=== PATIENT | male | born 1950 | race Asian ===

== ENCOUNTER 2016-05-06 12:23 | Inpatient (IN) | payer MEDICARE, MEDICAID ==
[~2016-05-06] VITALS: Ht 167.6 cm; Wt 72.6 kg
[~2016-05-06 12:23] MED LIST: AMLODIPINE BESY10 MG ORAL; ASPIRIN81 MG ORAL; COLACE100 MG ORAL; CRESTOR20 MG ORAL; CULTURELLE1 EACH ORAL; FISH OIL 1,2001 EAC2 PO; ISOSORBIDE DINIT5 MG ORAL; LISINOPRIL20 MG ORAL; LOSARTAN POTASS50 MG ORAL; METOPROLOL SUCC25 MG ORAL; NEXIUM40 MG ORAL; NKM; NORCO 5-325 TA1 EACH ORAL; NORVASC10 MG ORAL; NORVASC5 MG ORAL; PANTOPRAZOLE SO40 MG ORAL; SENNA8.6 M3 PO; TAMSULOSIN HCL0.4 MG ORAL; ZOFRAN4 MG ORAL
[2016-05-06 13:00] LABS: EOSINOPHILS % (AUTO) 1.4 % (0.0-3.0); LYMPHOCYTES % (AUTO) 16.6 % (20.0-45.0); MEAN CORPUSCULAR HEMOGLOBIN 31.1 PG (27.0-31.0); MEAN CORPUSCULAR HGB CONC 33.1 G/DL (32.0-36.0); MEAN CORPUSCULAR VOLUME 94 FL (80-99); MONOCYTES % (AUTO) 6.5 % (1.0-10.0); NEUTROPHILS % (AUTO) 74.5 % (45.0-75.0); PLATELET COUNT 173 K/UL (150-450); RED BLOOD COUNT 4.67 M/UL (4.70-6.10); RED CELL DISTRIBUTION WIDTH 11.8 % (11.6-14.8); WHITE BLOOD COUNT 9.1 K/UL (4.8-10.8)
[2016-05-06 13:07] LABS: TROPONIN I < 0.30 ng/mL (<=0.30)
[2016-05-06 13:08] LABS: ALANINE AMINOTRANSFERASE 24 U/L (3-41); ALBUMIN/GLOBULIN RATIO 1.6 (1.0-2.7); ANION GAP 15 (5-15); ASPARTATE AMINO TRANSFERASE 29 U/L (5-40); CALCIUM 9.1 mg/dL (8.6-10.2); CARBON DIOXIDE 26 mEQ/L (20-30); CHLORIDE 104 mEQ/L (98-107); CREATININE 1.1 mg/dL (0.7-1.2); GLOMERULAR FILTRATION RATE > 60 mL/min (>60); HEMOLYSIS 13; POTASSIUM 3.9 mEQ/L (3.4-4.9); SODIUM 145 mEQ/L (135-145); TOTAL PROTEIN 6.5 g/dL (6.6-8.7)
[2016-05-06 13:19] LABS: CKMB 4.6 ng/mL (< 6.7)
[2016-05-06 14:00] VITALS: BP 134/86
[2016-05-06] MEDS ORDERED: UNOBMED (14:00)
--- NOTE | 2016-05-06 14:24 | Diagnostic Imaging Report ---
Indication: Chest pain Technique: One view of the chest Comparison: 01/07/2016 Findings: The heart is borderline enlarged. Aorta is ectatic tortuous and calcified. There are median sternotomy sutures. Findings are unchanged Impression: No acute process Borderline cardiomegaly
[2016-05-06] MEDS ORDERED: Ketorolac 30mg Inj IV PRN (16:00)
[2016-05-06 16:15] LABS: TROPONIN I < 0.30 ng/mL (<=0.30)
[2016-05-06 16:29] VITALS: BP 143/78
--- NOTE | 2016-05-06 16:39 | Emergency Room Report ---
History of Present Illness General Chief Complaint: Chest Pain Source: Patient Present Illness HPI This patient complains of chest pain that started about 30 minutes prior to arrival. The patient did undergo a coronary artery bypass graft about one year ago. He states he was walking and suddenly felt substernal chest pain. He states that his symptoms have subsided. He denies cough or congestion. Denies fever chills. He has no other complaints. Allergies: Coded Allergies: No Known Allergies (Unverified , 11/27/14) Patient History Past Medical History: see triage record, HTN, MA, CAD Past Surgical History: CABG Social History: Denies: alcohol use, drug use, smoking Reviewed Nursing Documentation: PMH: Agreed, PSxH: Agreed Nursing Documentation-PMH Hx Cardiac Problems: Yes - cabg Hx Hypertension: Yes Hx Pacemaker: No Hx Asthma: No Hx COPD: No Hx Diabetes: No Hx Cancer: No Hx Gastrointestinal Problems: No Hx Dialysis: No History Of Psychiatric Problem: No Hx Neurological Problems: No Hx Cerebrovascular Accident: Yes Hx Seizures: No Review of Systems All Other Systems: negative except mentioned in HPI Physical Exam Vital Signs Date Time Temp Pulse Resp B/P Pulse Ox O2 Delivery O2 Flow Rate FiO2 05/06/16 12:20 98.1 68 16 130/80 98 Room Air Sp02 EP Interpretation: reviewed, normal General Appearance: no apparent distress, alert, GCS 15, non-toxic Head: normocephalic, atraumatic Eyes: bilateral eye PERRL, bilateral eye normal inspection ENT: hearing grossly normal, normal pharynx, no angioedema, normal voice Neck: full range of motion, supple/symm/no masses Respiratory: chest non-tender, lungs clear, normal breath sounds, speaking full sentences Cardiovascular #1: regular rate, rhythm, no edema Gastrointestinal: normal bowel sounds, non tender, soft, non-distended, no guarding, no rebound Rectal: deferred Musculoskeletal: back normal, gait/station normal, normal range of motion, non- tender Neurologic: alert, oriented x3, responsive, motor strength/tone normal, sensory intact, speech normal Psychiatric: judgement/insight normal, memory normal, mood/affect normal, no suicidal/homicidal ideation Skin: normal color, no rash, warm/dry, well hydrated Medical Decision Making Diagnostic Impression: Primary Impression: Chest pain ER Course This patient with known coronary artery disease and status post CABG one year ago presents with substernal chest pain. Initial workup to include EKG, troponin are negative for acute findings. However, the patient's high-risk for acute coronary syndrome. He will be admitted to rule out acute coronary syndrome and for further evaluation and treatment. Labs Test 05/06/16 12:45 White Blood Count 9.1 K/UL (4.8-10.8) Red Blood Count 4.67 M/UL (4.70-6.10) Hemoglobin 14.5 G/DL (14.2-18.0) Hematocrit 43.9 % (42.0-52.0) Mean Corpuscular Volume 94 FL (80-99) Mean Corpuscular Hemoglobin 31.1 PG (27.0-31.0) Mean Corpuscular Hemoglobin Concent 33.1 G/DL (32.0-36.0) Red Cell Distribution Width 11.8 % (11.6-14.8) Platelet Count 173 K/UL (150-450) Mean Platelet Volume 9.0 FL (6.5-10.1) Neutrophils (%) (Auto) 74.5 % (45.0-75.0) Lymphocytes (%) (Auto) 16.6 % (20.0-45.0) Monocytes (%) (Auto) 6.5 % (1.0-10.0) Eosinophils (%) (Auto) 1.4 % (0.0-3.0) Basophils (%) (Auto) 1.0 % (0.0-2.0) Sodium Level 145 mEQ/L (135-145) Potassium Level 3.9 mEQ/L (3.4-4.9) Chloride Level 104 mEQ/L (98-107) Carbon Dioxide Level 26 mEQ/L (20-30) Anion Gap 15 (5-15) Blood Urea Nitrogen 16 mg/dL (7-23) Creatinine 1.1 mg/dL (0.7-1.2) Estimat Glomerular Filtration Rate > 60 mL/min (>60) Glucose Level 146 mg/dL (74-106) Calcium Level 9.1 mg/dL (8.6-10.2) Total Bilirubin 0.3 mg/dL (0.0-1.2) Aspartate Amino Transf (AST/SGOT) 29 U/L (5-40) Alanine Aminotransferase (ALT/SGPT) 24 U/L (3-41) Alkaline Phosphatase 70 U/L (40-129) Total Creatine Kinase 917 U/L (38-174) Creatine Kinase MB 4.6 ng/mL (< 6.7) Creatine Kinase MB Relative Index 0.5 Troponin I < 0.30 ng/mL (<=0.30) Total Protein 6.5 g/dL (6.6-8.7) Albumin 4.0 g/dL (3.5-5.2) Globulin 2.5 g/dL Albumin/Globulin Ratio 1.6 (1.0-2.7) EKG Diagnostic Results Rate: normal Rhythm: NSR ST Segments: no acute changes Rhythm Strip Diag. Results EP Interpretation: yes Rate: 90's Rhythm: NSR, no PVC's, no ectopy Chest X-Ray Diagnostic Results EP Interpretation: Yes Findings: no consolidation, no effusion, no pneumothorax, no acute cardiopulmonary disease Number of Views: 1 Last Vital Signs Date Time Temp Pulse Resp B/P Pulse Ox O2 Delivery O2 Flow Rate FiO2 05/06/16 16:29 98.1 72 16 143/78 100 Room Air Status: improved Disposition: ADMITTED INPATIENT Condition: Serious Referrals: NOT CHOSEN IPA/,REFERRING (PCP) ISABEL LANGFORD D.O. May 06, 2016 16:39
[2016-05-06 17:24] VITALS: BP 139/79
[2016-05-06] MEDS ORDERED: Nitroglycerin Subl 0.4mg tab (Bottle Of 25) SL PRN (17:45)
[2016-05-06] MEDS ORDERED: Enalaprilat 2.5mg/2ml Inj IV PRN (18:00)
[2016-05-06] MEDS ORDERED: Morphine Sulfate 2mg/ml Inj IVP PRN (18:00)
[2016-05-06] MEDS ORDERED: Miralax 17gm pkt ORAL PRN (18:00)
[2016-05-06] MEDS ORDERED: Diltiazem 25mg/5ml IV PRN (18:00)
[2016-05-06] MEDS ORDERED: DuoNeb 0.5-3(2.5)mg/3ml neb HHN PRN (18:00)
--- NOTE | 2016-05-06 19:33 | Cardiology Progress Note ---
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 primary billet examiner [id number] Objective Last 24 Hour Vital Signs Date Time Temp Pulse Resp B/P Pulse Ox O2 Delivery O2 Flow Rate FiO2 05/06/16 17:53 98.1 78 17 139/79 100 Room Air 05/06/16 17:24 98.1 78 17 139/79 100 Room Air 05/06/16 16:29 98.1 72 16 143/78 100 Room Air 05/06/16 14:00 59 16 134/86 100 Room Air 05/06/16 12:30 68 16 Room Air 05/06/16 12:20 98.1 68 16 130/80 98 Room Air Laboratory Tests Test 05/06/16 12:45 White Blood Count 9.1 K/UL (4.8-10.8) Red Blood Count 4.67 M/UL (4.70-6.10) L Hemoglobin 14.5 G/DL (14.2-18.0) Hematocrit 43.9 % (42.0-52.0) Mean Corpuscular Volume 94 FL (80-99) Mean Corpuscular Hemoglobin 31.1 PG (27.0-31.0) H Mean Corpuscular Hemoglobin Concent 33.1 G/DL (32.0-36.0) Red Cell Distribution Width 11.8 % (11.6-14.8) Platelet Count 173 K/UL (150-450) Mean Platelet Volume 9.0 FL (6.5-10.1) Neutrophils (%) (Auto) 74.5 % (45.0-75.0) Lymphocytes (%) (Auto) 16.6 % (20.0-45.0) L Monocytes (%) (Auto) 6.5 % (1.0-10.0) Eosinophils (%) (Auto) 1.4 % (0.0-3.0) Basophils (%) (Auto) 1.0 % (0.0-2.0) Sodium Level 145 mEQ/L (135-145) Potassium Level 3.9 mEQ/L (3.4-4.9) Chloride Level 104 mEQ/L (98-107) Carbon Dioxide Level 26 mEQ/L (20-30) Anion Gap 15 (5-15) Blood Urea Nitrogen 16 mg/dL (7-23) Creatinine 1.1 mg/dL (0.7-1.2) Estimat Glomerular Filtration Rate > 60 mL/min (>60) Glucose Level 146 mg/dL (74-106) H Calcium Level 9.1 mg/dL (8.6-10.2) Total Bilirubin 0.3 mg/dL (0.0-1.2) Aspartate Amino Transf (AST/SGOT) 29 U/L (5-40) Alanine Aminotransferase (ALT/SGPT) 24 U/L (3-41) Alkaline Phosphatase 70 U/L (40-129) Total Creatine Kinase 917 U/L (38-174) H Creatine Kinase MB 4.6 ng/mL (< 6.7) Creatine Kinase MB Relative Index 0.5 Troponin I < 0.30 ng/mL (<=0.30) Total Protein 6.5 g/dL (6.6-8.7) L Albumin 4.0 g/dL (3.5-5.2) Globulin 2.5 g/dL Albumin/Globulin Ratio 1.6 (1.0-2.7) DIANNE RAY May 06, 2016 19:33
[2016-05-06 20:00] VITALS: BP 152/94
[2016-05-06] MEDS: Heparin 5000 units/ml inj SUBQ SCH (21:37)
[2016-05-06] MEDS: Norco 5mg/325mg tab ORAL PRN (21:41)
[2016-05-07] VITALS (9 sets, daily range): BP systolic 135–185; BP diastolic 65–108
--- NOTE | 2016-05-07 01:27 | Consultation ---
DATE OF CONSULTATION: 05/06/2016 CARDIOLOGY CONSULTATION CONSULTING PHYSICIAN: Bhavin Vinson M.D. REFERRING PHYSICIAN: Kellie Orellana M.D. REASON FOR REFERRAL: Chest pain. HISTORY OF PRESENT ILLNESS: This is an elderly [place] gentleman who presented to the hospital because of chest pain. On questioning, he indicates that he has had intermittent episodes of sharp sensation in the center of the chest that gets worse with taking a deep breath, coughing, twisting, turning, and walk. He does not really have any shortness of breath. No PND. No orthopnea. No palpitations at this time. Food Quality Technician run sheet indicates that this 65-year-old gentleman was found sitting inside [employer], started drinking coffee 15 minutes ago and developed some pain. After drinking the coffee, chest pain started 15 minutes prior to [facility] arrival, non-provoked, nonradiating, midsternal, 10/10, hurts more on inspiration and palpation. No nausea, no vomiting. Feels like a needle sensation and he told then it was constant, but he tells me that it is recurrent, intermittent. History of bypass surgery. The patient had a blood sugar of 160. EKG is sinus rhythm. He had three sublingual nitroglycerin sprays and 324 mg of aspirin and the pain went from 10/10 to 6/10. He was brought to the emergency room at [facility] and is being admitted. PAST MEDICAL HISTORY: Positive for history of prior admission here because of chest pain. At that time, it was felt to be musculoskeletal secondary to reproducibility on palpation. He does have a history of coronary artery bypass grafting with BEAR to LAD, saphenous vein graft to diagonal, saphenous vein graft to posterior descending artery, and left radial to the obtuse marginal in 04/2015. He had a history of hypertension and hyperlipidemia. He had a history of hemorrhagic stroke in 04/2014 with residual left-sided droop and left upper extremity weakness, status post craniotomy apparently this occurred in [place]. Prior to hospitalization, chest pains at [facility] thought to be related to postoperative pain. 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 ALLERGIES: He is not allergic to any medications. SOCIAL HISTORY: He smokes after a bypass surgery. No alcohol use. REVIEW OF SYSTEMS: Gastrointestinal: He denies. Genitourinary: He denies. Pulmonary: He does have some coughing. Constitutional: He has had some sweats. Neurologic: He does have tingling sensation on questioning in his feet. PHYSICAL EXAMINATION: GENERAL: Shows to be a middle-aged Kinyar[place] gentleman, in no respiratory distress. HEENT: He has a deformity of the right cranial lateral area of the head. LUNGS: Clear to auscultation and percussion. CARDIAC: S1 is normal. S2 is normal. Regular rate and rhythm. No heaves, thrills, gallops, or rubs are noted. ABDOMEN: Soft and nontender. Positive bowel sounds. EXTREMITIES: There is no clubbing, cyanosis, no RV nor is there any edema. NEUROLOGIC: He is awake, alert, responsive, and in no apparent respiratory distress. LABORATORY VALUES: He has had EKG performed today that shows sinus rhythm with ST-segment changes mainly in lead III and possibly some in lead aVF as well and in direct comparison. White count 9.1, hemoglobin 14.5, and platelet count of 173,000. two sets of cardiac enzymes are negative. Sodium 145, potassium 3.9, chloride 104, bicarbonate 26, BUN 16, creatinine 1.1, and glucose of 146. CPK of 917 and no other testing. The patient did have a chest x-ray performed in the emergency room that showed no acute processes with borderline cardiomegaly. ASSESSMENT: 1. Atypical chest pain. 2. History of coronary disease and coronary artery bypass grafting, over the last year. 3. History of intracranial hemorrhage, in [place]. The patient's pain is atypical. He has some nonspecific T-wave changes on the EKG. Two sets of cardiac enzymes are negative. The percent should be checked in the morning. Since the pain is so atypical and he has not had any T-wave changes and his coronary artery bypass graft was relatively recently, I do not see any need to repeat perfusion imaging. Should be allowed to walk in the halls and if he does okay to discharge home. He will follow up with his primary care physician as outpatient. I would, however, repeat cardiac enzymes, EKG, and echocardiogram to rule out pericardial effusion and pericardiotomy syndrome before. Bhavin Vinson M.D. DR: ROXI JOB#: [id number] CC:
[2016-05-07 07:09] LABS: PROTHROMBIN TIME 10.3 SEC (9.30-11.50)
[2016-05-07 07:14] LABS: BASOPHILS % (AUTO) 1.3 % (0.0-2.0); EOSINOPHILS % (AUTO) 2.6 % (0.0-3.0); MEAN CORPUSCULAR HEMOGLOBIN 32.6 PG (27.0-31.0); MEAN CORPUSCULAR HGB CONC 34.9 G/DL (32.0-36.0); MEAN CORPUSCULAR VOLUME 93 FL (80-99); MEAN PLATELET VOLUME 10.4 FL (6.5-10.1); NEUTROPHILS % (AUTO) 59.2 % (45.0-75.0); PLATELET COUNT 175 K/UL (150-450); RED BLOOD COUNT 4.42 M/UL (4.70-6.10); RED CELL DISTRIBUTION WIDTH 12.1 % (11.6-14.8)
[2016-05-07 07:29] LABS: TROPONIN I < 0.30 ng/mL (<=0.30)
[2016-05-07 08:16] LABS: CHOLESTEROL 143 mg/dL (< 200); CHOLESTEROL/HDL RATIO 3.7 (3.3-4.4); CRP QUANT < 0.3 mg/dL (< 0.5); HEMOLYSIS 7; LDL CHOLESTEROL (CALC.) 77 mg/dL (60-99)
[2016-05-07 08:25] LABS: THYROID STIMULATING HORMONE 0.985 uIU/mL (0.300-4.500)
[2016-05-07] MEDS: Aspirin Baby 81mg ORAL SCH (08:47)
[2016-05-07] MEDS: Lisinopril 20mg tab ORAL SCH (08:48)
[2016-05-07] MEDS: Heparin 5000 units/ml inj SUBQ SCH ×2 (08:49→21:05)
--- NOTE | 2016-05-07 13:22 | History and Physical ---
History of Present Illness General Date patient seen: May 07, 2016 Reason for Hospitalization: Chest Pain Present Illness HPI 65 year old patient with hx of CAD, Recent CABG last December, with CC of chest pain that started about 30 minutes prior to arrival. He states he was walking and suddenly felt substernal chest pain. He states that his symptoms have subsided. He denies cough or congestion. Denies fever chills. He has no other complaints. He is admitted to telemetry to rule out ACS. Allergies: Coded Allergies: No Known Allergies (Unverified , 11/27/14) Medication History Scheduled Amlodipine Besylate (Norvasc), 5 MG ORAL DAILY Amlodipine Besylate (Norvasc), 10 MG ORAL DAILY, (Reported) Aspirin* (Aspirin*), 81 MG ORAL DAILY, (Reported) Docusate Sodium* (Colace*), 100 MG ORAL DAILY, (Reported) Esomeprazole Magnesium (Nexium), 40 MG ORAL DAILY, (Reported) Lisinopril (Lisinopril*), 20 MG ORAL DAILY, (Reported) Metoprolol Succinate* (Metoprolol Succinate*), 25 MG ORAL DAILY, (Reported) No Known Medications* (NKM - No Known Medications*), 0 ., (Reported) Pantoprazole* (Pantoprazole*), 40 MG ORAL DAILY, (Reported) Rosuvastatin Calcium* (Crestor*), 20 MG ORAL DAILY, (Reported) Tamsulosin Hcl (Tamsulosin Hcl*), 0.4 MG ORAL BEDTIME, (Reported) Scheduled PRN Hydrocodone Bit/Acetaminophen 5-325* ([place] 5-325*), 1 TAB ORAL Q6H PRN for For Pain Miscellaneous Medications Isosorbide Dinitrate (Isosorbide Dinitrate*), 10 MG ORAL, (Reported) Unable to Obtain Medications (Unable To Obtain Meds), (Reported) Patient History Healthcare decision maker Resuscitation status Full Code Advanced Directive on File Past Medical/Surgical History Past Medical/Surgical History: (1) CVA, old, hemiparesis (2) History of hypertension (3) Costochondritis Review of Systems All Other Systems: negative except mentioned in HPI Physical Exam Lines, tubes and drains: peripheral HEENT: normocephalic, anicteric Neck: non-tender, normal alignment Respiratory/Chest: chest wall non-tender, lungs clear Cardiovascular/Chest: normal peripheral pulses, normal rate Last 24 Hour Vital Signs Date Time Temp Pulse Resp B/P Pulse Ox O2 Delivery O2 Flow Rate FiO2 05/07/16 12:00 96.9 68 18 172/92 98 05/07/16 08:48 135/65 05/07/16 08:47 63 135/65 05/07/16 08:00 97.3 69 17 135/65 97 05/07/16 04:01 98.8 58 21 145/79 97 Room Air 05/07/16 04:00 58 05/07/16 00:10 78 150/95 05/07/16 00:02 98.6 75 20 161/100 97 Room Air 05/07/16 00:00 55 05/06/16 20:00 97.6 64 21 152/94 96 Room Air 05/06/16 17:53 98.1 78 17 139/79 100 Room Air 05/06/16 17:24 98.1 78 17 139/79 100 Room Air 05/06/16 16:29 98.1 72 16 143/78 100 Room Air 05/06/16 14:00 59 16 134/86 100 Room Air Intake and Output 05/06/16 05/07/16 19:00 07:00 Intake Total 0 ml Balance 0 ml Intake Oral 0 ml # Voids 3 Laboratory Tests Test 05/07/16 06:00 White Blood Count 7.0 K/UL (4.8-10.8) Red Blood Count 4.42 M/UL (4.70-6.10) L Hemoglobin 14.4 G/DL (14.2-18.0) Hematocrit 41.3 % (42.0-52.0) L Mean Corpuscular Volume 93 FL (80-99) Mean Corpuscular Hemoglobin 32.6 PG (27.0-31.0) H Mean Corpuscular Hemoglobin Concent 34.9 G/DL (32.0-36.0) Red Cell Distribution Width 12.1 % (11.6-14.8) Platelet Count 175 K/UL (150-450) Mean Platelet Volume 10.4 FL (6.5-10.1) H Neutrophils (%) (Auto) 59.2 % (45.0-75.0) Lymphocytes (%) (Auto) 27.0 % (20.0-45.0) Monocytes (%) (Auto) 10.0 % (1.0-10.0) Eosinophils (%) (Auto) 2.6 % (0.0-3.0) Basophils (%) (Auto) 1.3 % (0.0-2.0) Prothrombin Time 10.3 SEC (9.30-11.50) Prothromb Time International Ratio 1.0 (0.9-1.1) Activated Partial Thromboplast Time 29 SEC (23-33) Troponin I < 0.30 ng/mL (<=0.30) C-Reactive Protein, Quantitative < 0.3 mg/dL (< 0.5) Triglycerides Level 135 mg/dL (< 150) Cholesterol Level 143 mg/dL (< 200) LDL Cholesterol 77 mg/dL (60-99) HDL Cholesterol 39 mg/dL (> 60) Cholesterol/HDL Ratio 3.7 (3.3-4.4) Thyroid Stimulating Hormone (TSH) 0.985 uIU/mL (0.300-4.500) Height (Feet): 5 Height (Inches): 6.00 Weight (Pounds): 160 Medications Current Medications Medications (Trade) Dose Ordered Sig/Vladislav Route PRN Reason Start Time Stop Time Status Last Admin Dose Admin Acetaminophen (Tylenol) 650 mg Q4H PRN ORAL T>100.5 05/06/16 18:00 06/05/16 17:59 Acetaminophen/ Hydrocodone Bitart ([place] 5/325) 1 tab Q6H PRN ORAL PAIN 1-6 05/06/16 18:00 05/13/16 17:59 05/06/16 21:41 Albuterol/ Ipratropium (DuoNeb 0.5-3(2.5)mg/3ml) 3 ml Q4H PRN HHN Shortness of Breath 05/06/16 18:00 05/11/16 17:59 Amlodipine Besylate (Norvasc) 5 mg DAILY ORAL 05/07/16 09:00 06/06/16 08:59 05/07/16 08:47 Aspirin (ASA) 162 mg DAILY ORAL 05/07/16 09:00 06/06/16 08:59 05/07/16 08:47 Diltiazem HCl (Cardizem) 10 mg EVERY HOUR PRN IV heart rate more than 120 05/06/16 18:00 06/05/16 17:59 Enalaprilat (Vasotec) 2.5 mg Q6H PRN IV sbp more than 160 05/06/16 18:00 06/05/16 17:59 Heparin Sodium (Porcine) (Heparin 5000 units/ml) 5,000 units EVERY 12 HOURS SUBQ 05/06/16 21:00 06/05/16 20:59 05/07/16 08:49 Lisinopril (Prinivil) 20 mg DAILY ORAL 05/07/16 09:00 06/06/16 08:59 05/07/16 08:48 Metoprolol Succinate (Toprol XL) 25 mg DAILY ORAL 05/07/16 09:00 06/06/16 08:59 Morphine Sulfate (Morphine Sulfate) 2 mg Q4H PRN IVP Severe Pain (Pain Scale 7-10) 05/06/16 18:00 05/13/16 17:59 Nitroglycerin (Ntg) 0.4 mg Q5MIN X 3 DOSES PRN SL Prn Chest Pain 05/06/16 17:45 06/05/16 17:44 Ondansetron HCl (Zofran) 4 mg Q6H PRN IVP Nausea & Vomiting 05/06/16 18:00 06/05/16 17:59 Pantoprazole (Protonix) 40 mg DAILY ORAL 05/07/16 09:00 06/06/16 08:59 05/07/16 08:47 Polyethylene Glycol (Miralax) 17 gm DAILYPRN PRN ORAL Constipation 05/06/16 18:00 06/05/16 17:59 Temazepam (Restoril) 15 mg HSPRN PRN ORAL Insomnia 05/06/16 21:00 05/13/16 20:59 Assessment/Plan Problem List: (1) ACS (acute coronary syndrome) ICD Codes: I24.9 - Acute ischemic heart disease, unspecified SNOMED: 582533577 (2) Costochondritis ICD Codes: M94.0 - Chondrocostal junction syndrome [Tietze] SNOMED: 00881312 (3) GERD (gastroesophageal reflux disease) ICD Codes: K21.9 - Gastro-esophageal reflux disease without esophagitis SNOMED: 379292600 (4) CVA, old, hemiparesis ICD Codes: I69.359 - Hemiplga following cerebral infarction affecting unsp side SNOMED: 057821891 (5) History of hypertension ICD Codes: Z86.79 - Personal history of other diseases of the circulatory system SNOMED: 565963214 Assessment/Plan serial ekg, troponin echo cardiology f/u monitor bp adjust home meds. request [facility] records. MALICK YOUNG May 07, 2016 13:22
[2016-05-07] MEDS: Norco 5mg/325mg tab ORAL PRN (19:43)
--- NOTE | 2016-05-07 20:18 | Cardiology Progress Note ---
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 Subjective Subjective head aches asked for pain meds per rn no co chest pain Objective Last 24 Hour Vital Signs Date Time Temp Pulse Resp B/P Pulse Ox O2 Delivery O2 Flow Rate FiO2 05/07/16 16:30 155/108 05/07/16 16:24 185/97 05/07/16 16:00 98.1 62 20 185/97 98 Room Air 05/07/16 13:00 96.9 68 18 145/90 98 05/07/16 12:00 96.9 68 18 172/92 98 05/07/16 12:00 55 05/07/16 09:00 56 136/65 05/07/16 08:48 135/65 05/07/16 08:47 63 135/65 05/07/16 08:00 97.3 69 17 135/65 97 05/07/16 07:30 59 05/07/16 04:01 98.8 58 21 145/79 97 Room Air 05/07/16 04:00 58 05/07/16 00:10 78 150/95 05/07/16 00:02 98.6 75 20 161/100 97 Room Air 05/07/16 00:00 55 General Appearance: no apparent distress Neck: supple Cardiovascular: normal rate, regular rhythm Respiratory/Chest: lungs clear, normal breath sounds Abdomen: normal bowel sounds, non tender, soft Extremities: no swelling Intake and Output 05/06/16 05/07/16 19:00 07:00 Intake Total 0 ml Balance 0 ml Intake Oral 0 ml # Voids 3 Laboratory Tests Test 05/07/16 06:00 White Blood Count 7.0 K/UL (4.8-10.8) Red Blood Count 4.42 M/UL (4.70-6.10) L Hemoglobin 14.4 G/DL (14.2-18.0) Hematocrit 41.3 % (42.0-52.0) L Mean Corpuscular Volume 93 FL (80-99) Mean Corpuscular Hemoglobin 32.6 PG (27.0-31.0) H Mean Corpuscular Hemoglobin Concent 34.9 G/DL (32.0-36.0) Red Cell Distribution Width 12.1 % (11.6-14.8) Platelet Count 175 K/UL (150-450) Mean Platelet Volume 10.4 FL (6.5-10.1) H Neutrophils (%) (Auto) 59.2 % (45.0-75.0) Lymphocytes (%) (Auto) 27.0 % (20.0-45.0) Monocytes (%) (Auto) 10.0 % (1.0-10.0) Eosinophils (%) (Auto) 2.6 % (0.0-3.0) Basophils (%) (Auto) 1.3 % (0.0-2.0) Prothrombin Time 10.3 SEC (9.30-11.50) Prothromb Time International Ratio 1.0 (0.9-1.1) Activated Partial Thromboplast Time 29 SEC (23-33) Troponin I < 0.30 ng/mL (<=0.30) C-Reactive Protein, Quantitative < 0.3 mg/dL (< 0.5) Triglycerides Level 135 mg/dL (< 150) Cholesterol Level 143 mg/dL (< 200) LDL Cholesterol 77 mg/dL (60-99) HDL Cholesterol 39 mg/dL (> 60) Cholesterol/HDL Ratio 3.7 (3.3-4.4) Thyroid Stimulating Hormone (TSH) 0.985 uIU/mL (0.300-4.500) DIANNE RAY May 07, 2016 20:18
[2016-05-08 00:15] VITALS: BP 152/89
[2016-05-08 04:01] VITALS: BP 149/88
[2016-05-08 08:00] VITALS: BP 150/90
[2016-05-08] MEDS: Lisinopril 20mg tab ORAL SCH (08:30)
[2016-05-08] MEDS: Aspirin Baby 81mg ORAL SCH (08:31)
[2016-05-08] MEDS: Heparin 5000 units/ml inj SUBQ SCH (08:32)
[2016-05-08 09:48] LABS: TROPONIN I < 0.30 ng/mL (<=0.30)
[2016-05-08 12:00] VITALS: BP 152/99
--- NOTE | 2016-05-08 14:46 | Pulmonology Progress Note ---
Assessment/Plan Problems: (1) ACS (acute coronary syndrome) (2) Costochondritis (3) GERD (gastroesophageal reflux disease) (4) CVA, old, hemiparesis (5) History of hypertension Assessment/Plan improving all cardiac studies were negative no further diagnostic studies home with f/u with outpatient pallet assembler Subjective ROS Limited/Unobtainable: No Interval Events: no new complains Allergies: Coded Allergies: No Known Allergies (Unverified , 11/27/14) Objective Last 24 Hour Vital Signs Date Time Temp Pulse Resp B/P Pulse Ox O2 Delivery O2 Flow Rate FiO2 05/08/16 12:00 96.9 70 18 152/99 98 Room Air 05/08/16 08:31 70 150/96 05/08/16 08:31 70 150/96 05/08/16 08:30 150/96 05/08/16 08:00 97.3 70 17 150/90 96 Room Air 05/08/16 07:42 67 05/08/16 04:01 98.5 68 21 149/88 95 Room Air 05/08/16 04:00 66 05/08/16 00:15 98.8 56 20 152/89 96 Room Air 05/08/16 00:00 52 05/07/16 20:00 98.2 69 18 158/95 96 Room Air 05/07/16 20:00 62 05/07/16 16:30 155/108 05/07/16 16:24 185/97 05/07/16 16:00 67 05/07/16 16:00 98.1 62 20 185/97 98 Room Air Intake and Output 05/07/16 05/08/16 19:00 07:00 Intake Total 680 ml Balance 680 ml Intake Oral 680 ml # Voids 2 1 General Appearance: WD/WN, no acute distress HEENT: atraumatic, PERRL Respiratory/Chest: chest wall non-tender Cardiovascular: normal peripheral pulses, normal rate Abdomen: normal bowel sounds, soft, non tender Genitourinary: normal external genitalia Skin: no rash Microbiology Date/Time Source Procedure Growth Status 05/06/16 14:00 Nasal Nares MRSA Culture - Final NO METHICILLIN RESISTANT STAPH AUREUS... Complete 05/06/16 14:00 Rectum VRE Culture - Final NO VANCOMYCIN RESISTANT ENTEROCOCCUS ... Complete Laboratory Tests 05/08/16 09:00: Troponin I < 0.30 Current Medications Medications (Trade) Dose Ordered Sig/Vladislav Route PRN Reason Start Time Stop Time Status Last Admin Dose Admin Acetaminophen (Tylenol) 650 mg Q4H PRN ORAL T>100.5 05/06/16 18:00 06/05/16 17:59 Acetaminophen/ Hydrocodone Bitart ([place] 5/325) 1 tab Q6H PRN ORAL PAIN 1-6 05/06/16 18:00 05/13/16 17:59 05/07/16 19:43 Albuterol/ Ipratropium (DuoNeb 0.5-3(2.5)mg/3ml) 3 ml Q4H PRN HHN Shortness of Breath 05/06/16 18:00 05/11/16 17:59 Amlodipine Besylate (Norvasc) 5 mg DAILY ORAL 05/07/16 09:00 06/06/16 08:59 05/08/16 08:31 Aspirin (ASA) 162 mg DAILY ORAL 05/07/16 09:00 06/06/16 08:59 05/08/16 08:31 Diltiazem HCl (Cardizem) 10 mg EVERY HOUR PRN IV heart rate more than 120 05/06/16 18:00 06/05/16 17:59 Enalaprilat (Vasotec) 2.5 mg Q6H PRN IV sbp more than 160 05/06/16 18:00 06/05/16 17:59 05/07/16 16:24 Heparin Sodium (Porcine) (Heparin 5000 units/ml) 5,000 units EVERY 12 HOURS SUBQ 05/06/16 21:00 06/05/16 20:59 05/08/16 08:32 Hydralazine HCl (Apresoline) 10 mg Q6H PRN IV BP>160 unrelieved by Enalapril 05/07/16 15:45 06/06/16 15:44 Lisinopril (Prinivil) 20 mg DAILY ORAL 05/07/16 09:00 06/06/16 08:59 05/08/16 08:30 Metoprolol Succinate (Toprol XL) 25 mg DAILY ORAL 05/07/16 09:00 06/06/16 08:59 05/08/16 08:31 Morphine Sulfate (Morphine Sulfate) 2 mg Q4H PRN IVP Severe Pain (Pain Scale 7-10) 05/06/16 18:00 05/13/16 17:59 Nitroglycerin (Ntg) 0.4 mg Q5MIN X 3 DOSES PRN SL Prn Chest Pain 05/06/16 17:45 06/05/16 17:44 Ondansetron HCl (Zofran) 4 mg Q6H PRN IVP Nausea & Vomiting 05/06/16 18:00 06/05/16 17:59 Pantoprazole (Protonix) 40 mg DAILY ORAL 05/07/16 09:00 06/06/16 08:59 05/08/16 08:30 Polyethylene Glycol (Miralax) 17 gm DAILYPRN PRN ORAL Constipation 05/06/16 18:00 06/05/16 17:59 Temazepam (Restoril) 15 mg HSPRN PRN ORAL Insomnia 05/06/16 21:00 05/13/16 20:59 MALICK YOUNG May 08, 2016 14:45
--- NOTE | 2016-05-09 22:04 | Discharge Summary ---
Discharge Summary Hospital Course Date of Admission May 06, 2016 at 15:14 Date of Discharge May 08, 2016 at 17:22 Admitting Diagnosis CP, R/o ACS HPI Deon Marie is a 65 year old male who was admitted on May 06, 2016 at 15:14 for Chest Pain,Rule Out Acute Coronary Syndrome Hospital Course [id number] Discharge Discharge Disposition Patient was discharged to Home (01) Discharge Diagnoses: Pamella Negron NP May 09, 2016 22:04
--- NOTE | 2016-05-10 00:29 | Discharge Summary 2 SIG ---
DATE OF ADMISSION: 05/06/2016 DATE OF DISCHARGE: 05/08/2016 PRESS CUTTER: Bhavin Vinson M.D. BRIEF HOSPITAL COURSE: The patient is a 65-year-old male with history of coronary artery disease, recent coronary artery bypass graft last December, brought in by ambulance with chief complaint of chest pain that started 30 minutes prior to arrival. He was walking and suddenly felt substernal chest pain and stated that his symptoms have subsided. He was admitted to telemetry for cardiac monitoring and to rule out acute coronary syndrome . Dr. Vinson was consulted. EKG was sinus rhythm. He received aspirin and nitroglycerin spray at ED. He had a history of intracranial hemorrhage in [place]. He has some nonspecific T-wave changes on EKG. Cardiac enzymes were negative. On telemetry, the patient was sinus. No SVT. Echocardiogram was negative. Wall motion normal. The patient was cleared for discharge home to follow up with his primary gas station clerk. FINAL DIAGNOSES: 1. Atypical chest pain. 2. Costochondritis. 3. Gastroesophageal reflux disease. 4. Old cerebrovascular accident with hemiparesis. 5. History of intracranial hemorrhage. 6. Recent coronary artery bypass graft. 7. History of post pericardiotomy syndrome. Kellie Orellana M.D. I have been assigned to dictate discharge summary on this account and I was not involved in the patient's management. Pamella Negron N.P. DR: IRMA JOB#: [id number] CC: JOHN
--- NOTE | 2016-05-10 15:24 | Cardiology Report ---
APPROVED REPORT EXAM: Two-dimensional and M-mode echocardiogram with Doppler and color Doppler. INDICATION Left ventricular function M-Mode DIMENSIONS IVSd1.1 (0.7-1.1cm)Left Atrium (MM)5.2 (1.6-4.0cm) LVDd4.2 (3.5-5.6cm)Aortic Root3.0 (2.0-3.7cm) PWd0.9 (0.7-1.1cm)Aortic Cusp Exc.1.8 (1.5-2.0cm) LVDs3.3 (2.5-4.0cm) PWs1.1 cm Normal left ventricular chamber size, systolic function and wall motion. Left ventricular ejection fraction estimated to be 55-60 %. Mild left ventricular hypertrophy. No evidence of pericardial fat or effusion. Right cardiac chamber sizes are within normal limits. Moderate left atrial enlargement by 2D. Focal aortic valve sclerosis with adequate cusp excursion Thickened mitral valve leaflets with normal excursion. Mild mitral annulus and aortic root calcification. Pulmonic valve not well visualized. Normal tricuspid valve structure. IVC not obtainable. A color flow and spectral Doppler study was performed and revealed: No aortic regurgitation. Moderate mitral regurgitation. Left ventricular diastolic dysfunction grade 1. Trace tricuspid regurgitation. Tricuspid systolic velocities suggests peak right ventricular systolic pressure of 14 mmHg
--- NOTE | 2016-05-13 14:52 | Cardiology Report ---
APPROVED REPORT EKG Measurement Heart [id number] [place] [id number] Normal sinus rhythm Possible Left atrial enlargement Prolonged QT Abnormal ECG
== END 2016-05-08 17:22 | disposition home or self-care (01) | DRG 206 ==
LOC: EDBD 12:23 → EMR 13:04 → 2E 15:14 → EDBEDREQ 17:39
DX: M94.0 Chondrocostal junction syndrome [Tietze] (principal); I69.959 Hemiplegia and hemiparesis following unspecified cerebrovascular disease affecting unspecified side; I25.2 Old myocardial infarction; K21.9 Gastro-esophageal reflux disease without esophagitis; I25.119 Atherosclerotic heart disease of native coronary artery with unspecified angina pectoris; Z95.1 Presence of aortocoronary bypass graft; I10 Essential (primary) hypertension
CPT/HCPCS: 36415; 71010; 80053; 80061; 82550; 82553; 84443; 84484; 85025; 85610; 85730; 86140; 87081; 93005; 93306

== ENCOUNTER 2016-05-09 17:48 | Emergency (ER) | payer MEDICARE, MEDICAID ==
[~2016-05-09] VITALS: Ht 172.7 cm; Wt 80.7 kg
[~2016-05-09 17:48] MED LIST changes: +UNOBMED
[2016-05-09 18:35] VITALS: BP 159/94
[2016-05-09 19:00] LABS: EOSINOPHILS % (AUTO) 1.8 % (0.0-3.0); LYMPHOCYTES % (AUTO) 20.7 % (20.0-45.0); MEAN CORPUSCULAR HEMOGLOBIN 31.1 PG (27.0-31.0); MEAN CORPUSCULAR VOLUME 94 FL (80-99); MEAN PLATELET VOLUME 8.8 FL (6.5-10.1); NEUTROPHILS % (AUTO) 68.5 % (45.0-75.0); PLATELET COUNT 200 K/UL (150-450); RED CELL DISTRIBUTION WIDTH 12.1 % (11.6-14.8); WHITE BLOOD COUNT 8.4 K/UL (4.8-10.8)
--- NOTE | 2016-05-09 19:16 | Emergency Room Report ---
History of Present Illness General Chief Complaint: Chest Pain Source: Patient Present Illness HPI Patient has a history of CABG and CAD. He presented to me here to the emergency department 2 days ago for the same symptoms. He was admitted for 2 days and discharged yesterday from the inpatient floor. He underwent ACS workup and had a negative workup in the emergency department. He states that he has had recurrence of his chest pain today. He denies cough or congestion. He denies fever or chills. He has no other complaints. Allergies: Coded Allergies: No Known Allergies (Unverified , 11/27/14) Patient History Past Medical History: HTN, OK, CAD, CVA/TIA Social History: Denies: alcohol use, drug use, smoking Reviewed Nursing Documentation: PMH: Agreed, PSxH: Agreed Nursing Documentation-PMH Past Medical History: No History, Except For Hx Cardiac Problems: Yes - cabg Hx Hypertension: Yes Hx Pacemaker: No Hx Asthma: No Hx COPD: No Hx Diabetes: No Hx Cancer: No Hx Gastrointestinal Problems: No Hx Dialysis: No Hx Neurological Problems: No Hx Cerebrovascular Accident: Yes Hx Seizures: No Review of Systems All Other Systems: negative except mentioned in HPI Physical Exam Vital Signs Date Time Temp Pulse Resp B/P Pulse Ox O2 Delivery O2 Flow Rate FiO2 05/09/16 18:04 97.2 92 14 155/111 98 Room Air Sp02 EP Interpretation: reviewed, normal General Appearance: no apparent distress, alert, GCS 15, non-toxic Head: normocephalic, atraumatic Eyes: bilateral eye PERRL, bilateral eye normal inspection ENT: hearing grossly normal, normal pharynx, no angioedema, normal voice Neck: full range of motion, supple/symm/no masses Respiratory: chest non-tender, lungs clear, normal breath sounds, speaking full sentences Cardiovascular #1: regular rate, rhythm, no edema Gastrointestinal: normal bowel sounds, non tender, soft, non-distended, no guarding, no rebound Rectal: deferred Musculoskeletal: back normal, gait/station normal, normal range of motion, non- tender Neurologic: alert, oriented x3, responsive, motor strength/tone normal, sensory intact, speech normal Psychiatric: judgement/insight normal, memory normal, mood/affect normal, no suicidal/homicidal ideation Skin: normal color, no rash, warm/dry, well hydrated Medical Decision Making Diagnostic Impression: Primary Impression: Chest pain ER Course This patient returns with ongoing chest pain. He had been admitted and underwent an acute coronary syndrome workup. This was negative. Given that he has had ongoing symptoms, I went ahead and obtained a CTA of the chest which showed . .. laboratory workup and was unremarkable to include CBC, CMP and cardiac. EKG showed no acute findings. Labs Test 05/09/16 18:50 White Blood Count 8.4 K/UL (4.8-10.8) Red Blood Count 5.50 M/UL (4.70-6.10) Hemoglobin 17.1 G/DL (14.2-18.0) Hematocrit 52.0 % (42.0-52.0) Mean Corpuscular Volume 94 FL (80-99) Mean Corpuscular Hemoglobin 31.1 PG (27.0-31.0) Mean Corpuscular Hemoglobin Concent 33.0 G/DL (32.0-36.0) Red Cell Distribution Width 12.1 % (11.6-14.8) Platelet Count 200 K/UL (150-450) Mean Platelet Volume 8.8 FL (6.5-10.1) Neutrophils (%) (Auto) 68.5 % (45.0-75.0) Lymphocytes (%) (Auto) 20.7 % (20.0-45.0) Monocytes (%) (Auto) 8.0 % (1.0-10.0) Eosinophils (%) (Auto) 1.8 % (0.0-3.0) Basophils (%) (Auto) 1.0 % (0.0-2.0) Prothrombin Time 10.0 SEC (9.30-11.50) Prothromb Time International Ratio 1.0 (0.9-1.1) Activated Partial Thromboplast Time 27 SEC (23-33) Sodium Level 143 mEQ/L (135-145) Potassium Level 4.2 mEQ/L (3.4-4.9) Chloride Level 102 mEQ/L (98-107) Carbon Dioxide Level 25 mEQ/L (20-30) Anion Gap 16 (5-15) Blood Urea Nitrogen 20 mg/dL (7-23) Creatinine 1.2 mg/dL (0.7-1.2) Estimat Glomerular Filtration Rate > 60 mL/min (>60) Glucose Level 127 mg/dL (74-106) Calcium Level 9.4 mg/dL (8.6-10.2) Total Bilirubin 0.3 mg/dL (0.0-1.2) Aspartate Amino Transf (AST/SGOT) 24 U/L (5-40) Alanine Aminotransferase (ALT/SGPT) 27 U/L (3-41) Alkaline Phosphatase 77 U/L (40-129) Total Creatine Kinase 196 U/L (38-174) Creatine Kinase MB 2.5 ng/mL (< 6.7) Creatine Kinase MB Relative Index 1.2 Troponin I < 0.30 ng/mL (<=0.30) Pro-B-Type Natriuretic Peptide 31 pg/mL (0-125) Total Protein 7.3 g/dL (6.6-8.7) Albumin 4.2 g/dL (3.5-5.2) Globulin 3.1 g/dL Albumin/Globulin Ratio 1.3 (1.0-2.7) EKG Diagnostic Results Rate: normal Rhythm: NSR ST Segments: no acute changes Rhythm Strip Diag. Results EP Interpretation: yes Rate: 80's Rhythm: NSR, no PVC's, no ectopy CT/MRI/US Diagnostic Results CT/MRI/US Diagnostic Results : Imaging Test Ordered: CTA chest Impression Negative for PE or other significant findings. See official report. Last Vital Signs Date Time Temp Pulse Resp B/P Pulse Ox O2 Delivery O2 Flow Rate FiO2 05/09/16 18:35 86 16 159/94 96 Room Air 05/09/16 18:04 97.2 Disposition: HOME, SELF-CARE Condition: Stable Referrals: NOT CHOSEN IPA/,REFERRING (PCP) Patient Instructions: Nonspecific Chest Pain, Heartburn ISABEL LANGFORD D.O. May 09, 2016 19:16
[2016-05-09 19:22] LABS: ALANINE AMINOTRANSFERASE 27 U/L (3-41); ALBUMIN/GLOBULIN RATIO 1.3 (1.0-2.7); ANION GAP 16 (5-15); ASPARTATE AMINO TRANSFERASE 24 U/L (5-40); CALCIUM 9.4 mg/dL (8.6-10.2); CARBON DIOXIDE 25 mEQ/L (20-30); CHLORIDE 102 mEQ/L (98-107); CREATININE 1.2 mg/dL (0.7-1.2); GLOMERULAR FILTRATION RATE > 60 mL/min (>60); HEMOLYSIS 10; POTASSIUM 4.2 mEQ/L (3.4-4.9); SODIUM 143 mEQ/L (135-145); TOTAL PROTEIN 7.3 g/dL (6.6-8.7); TROPONIN I < 0.30 ng/mL (<=0.30)
[2016-05-09 19:33] LABS: CKMB 2.5 ng/mL (< 6.7)
[2016-05-09] MEDS ORDERED: Lisinopril 10mg tab ORAL ONE (21:15)
[2016-05-09 21:32] VITALS: BP 164/99
--- NOTE | 2016-05-10 10:08 | Diagnostic Imaging Report ---
Indication: Chest pain Technique: CT pulmonary angiogram performed utilizing automated exposure control with intravenous contrast. Axial, sagittal and coronal reconstructions were obtained. 3-D volumetric reconstructions were also performed. CT dose: Total DLP 691 mGycm; CTDI vol 21.8 mGy Comparison: None Findings: There is no central pulmonary embolus or aortic dissection. Thoracic aorta is normal in caliber. The heart is enlarged. There is evidence of coronary artery bypass graft surgery. No pericardial or pleural effusions are identified. There is mild atelectasis of the bilateral lower lobes. Small hiatal hernia is present. A hypodense left thyroid nodule measures 7 mm. There is nodularity of the partially visualized bilateral adrenal gland. Degenerative changes of the spine are present. Impression: No central pulmonary embolus or aortic dissection. Cardiomegaly, atherosclerotic changes and coronary artery bypass graft surgery. Dependent atelectasis. Small hiatal hernia. Subcentimeter hypodense left thyroid nodule. Correlation with ultrasound recommended as indicated. Partially visualized slight nodularity of the bilateral adrenal gland. Further evaluation recommended as indicated. The CT scanner at [facility] is accredited by the [employer] and the scans are performed using protocols designed to limit radiation exposure to as low as reasonably achievable to attain images of sufficient resolution adequate for diagnostic evaluation.
--- NOTE | 2016-05-11 21:16 | Cardiology Report ---
APPROVED REPORT EKG Measurement Heart [id number] Normal sinus rhythm Prolonged QT Abnormal ECG
== END 2016-05-09 21:55 | disposition home or self-care (01) ==
LOC: EMR 18:40
DX: R07.9 Chest pain, unspecified (principal); I25.810 Atherosclerosis of coronary artery bypass graft(s) without angina pectoris; I10 Essential (primary) hypertension; Z86.73 Personal history of transient ischemic attack (TIA), and cerebral infarction without residual deficits; F17.200 Nicotine dependence, unspecified, uncomplicated
CPT/HCPCS: 36415; 71275; 80053; 82550; 82553; 83880; 84484; 85025; 85610; 85730; 93005; 99284; Q9967

== ENCOUNTER 2017-06-28 04:21 | Inpatient (IN) | payer MEDICARE, OTHER ==
[~2017-06-28] VITALS: Ht 170.2 cm; Wt 80.7 kg
[2017-06-28] VITALS (11 sets, daily range): BP systolic 112–189; BP diastolic 69–104
--- NOTE | 2017-06-28 04:30 | Emergency Room Report ---
History of Present Illness General Chief Complaint: Male Urogenital Problems Source: Patient, EMS Present Illness HPI Is a 66-year-old French male with a history of CVA and hypertension. He presents with chief complaint is hematuria. He had one episode month ago and he went to his doctor. He said nothing was done. He woke up this morning with gross hematuria. Some pain to the groin area. No nausea no vomiting. No fever chills. Not on any blood thinner. Denies any dysuria frequency. Denies any upper back pain. Allergies: Coded Allergies: No Known Allergies (Unverified , 11/27/14) Patient History Past Medical History: see triage record, old chart reviewed, HTN, CVA/TIA Past Surgical History: other Pertinent Family History: none Social History: Denies: smoking Immunizations: other Reviewed Nursing Documentation: PMH: Agreed; PSxH: Agreed Nursing Documentation-PMH Hx Cardiac Problems: Yes - CVA 2016 Hx Hypertension: Yes Hx Pacemaker: No Hx Asthma: No Hx COPD: No Hx Diabetes: No Hx Cancer: No Hx Gastrointestinal Problems: No Hx Dialysis: No Hx Neurological Problems: No Hx Cerebrovascular Accident: Yes Hx Seizures: No Review of Systems Eye: Denies: eye pain, blurred vision ENT: Denies: ear pain, nose congestion, throat swelling Respiratory: Denies: cough, shortness of breath Cardiovascular: Denies: chest pain, palpitations Gastrointestinal: Denies: abdominal pain, diarrhea, nausea, vomiting Genitourinary: Reports: hematuria Musculoskeletal: Denies: back pain, joint pain Skin: Denies: rash Neurological: Denies: headache, numbness Endocrine: Denies: increased thirst, increased urine Hematologic/Lymphatic: Denies: easy bruising All Other Systems: negative except mentioned in HPI Physical Exam Vital Signs Date Time Temp Pulse Resp B/P (MAP) Pulse Ox O2 Delivery O2 Flow Rate FiO2 06/28/17 04:13 98.1 76 15 182/107 96 Room Air 98.1 vitals with high blood pressure Sp02 EP Interpretation: reviewed, normal General Appearance: well appearing, no apparent distress, alert Head: normocephalic, atraumatic Eyes: bilateral eye PERRL, bilateral eye EOMI ENT: hearing grossly normal, normal pharynx Neck: full range of motion, supple, no meningismus Respiratory: chest non-tender, lungs clear, normal breath sounds Cardiovascular #1: regular rate, rhythm, no murmur Gastrointestinal: normal bowel sounds, non tender, no mass, no organomegaly, no bruit, non-distended Musculoskeletal: back normal, gait/station normal, normal range of motion Psychiatric: mood/affect normal Skin: warm/dry Medical Decision Making Diagnostic Impression: Primary Impression: UTI (urinary tract infection) Qualified Codes: N30.01 - Acute cystitis with hematuria Additional Impressions: Hematuria Qualified Codes: R31.9 - Hematuria, unspecified Bladder mass ER Course Patient with gross hematuria on presentation. He has moderate amount of bacteria in his urine. May be an infectious process. Concerning for the fact that he has a mass in his bladder. This may be a neoplastic process. Blood pressure improved after medication. He is not taking his blood pressure medication because the transitional housing that he currently is in loss his medication per patient. Patient has no family member here because they moved back to [place] per patient. We'll admit for further workup. I discussed case with Dr. Orellana who will admit. Lab Results Impression labs unremarkable CT/MRI/US Diagnostic Results CT/MRI/US Diagnostic Results : Imaging Test Ordered: CT abdomen and pelvis Impression Read by radiologist. There is a 3.4 cm mass in the urinary bladder. Suspicious for neoplasm. Last Vital Signs Date Time Temp Pulse Resp B/P (MAP) Pulse Ox O2 Delivery O2 Flow Rate FiO2 06/28/17 04:13 98.1 76 15 182/107 96 Room Air 98.1 Status: improved Disposition: ADMITTED INPATIENT Condition: Serious AMA SALVADOR M.D. Jun 28, 2017 04:30
[2017-06-28 05:13] LABS: BASOPHILS % (AUTO) 1.1 % (0.0-2.0); EOSINOPHILS % (AUTO) 2.5 % (0.0-3.0); HEMOGLOBIN 14.5 G/DL (14.2-18.0); MEAN CORPUSCULAR VOLUME 94 FL (80-99); MONOCYTES % (AUTO) 6.9 % (1.0-10.0); NEUTROPHILS % (AUTO) 71.5 % (45.0-75.0); PLATELET COUNT 172 K/UL (150-450); RED BLOOD COUNT 4.57 M/UL (4.70-6.10); RED CELL DISTRIBUTION WIDTH 11.3 % (11.6-14.8); WHITE BLOOD COUNT 9.1 K/UL (4.8-10.8)
[2017-06-28 05:20] LABS: ANION GAP 9 mmol/L (5-15); BLOOD UREA NITROGEN 20 mg/dL (7-18); CALCIUM 8.4 MG/DL (8.5-10.1); CARBON DIOXIDE 27 MMOL/L (21-32); CHLORIDE 109 MMOL/L (98-107); CREATININE 1.1 MG/DL (0.55-1.30); POTASSIUM 3.9 MMOL/L (3.5-5.1); SODIUM 145 MMOL/L (136-145)
[2017-06-28 05:37] LABS: APPEARANCE,URINE TURBID; BILIRUBIN, URINE NEGATIVE (NEGATIVE); GLUCOSE, URINE (UA) NEGATIVE (NEGATIVE); KETONES,URINE NEGATIVE (NEGATIVE); LEUKOCYTE ESTERASE ,URINE 1+ (NEGATIVE); NITRITE,URINE NEGATIVE (NEGATIVE); PH,URINE 6.5 (4.5-8.0); PROTEIN,URINE 4+ (NEGATIVE); UROBILINOGEN,URINE NORMAL MG/DL (0.0-1.0)
[2017-06-28 05:39] LABS: COLOR,URINE RED
[2017-06-28] MEDS ORDERED: cefTRIAXone 1 GM in NS 55 ML IVPB ONE (05:45)
[2017-06-28] MEDS ORDERED: Albuterol/Ipratropium 3ml neb HHN PRN (09:45)
[2017-06-28] MEDS ORDERED: Mylanta II UD 30ml ORAL PRN (09:45)
[2017-06-28] MEDS ORDERED: LORazepam Inj 2mg/ml 1ml IV PRN (09:45)
[2017-06-28] MEDS ORDERED: Miralax 17gm pkt ORAL PRN (09:45)
[2017-06-28] MEDS ORDERED: Zolpidem 5mg tab ORAL PRN (09:45)
--- NOTE | 2017-06-28 09:55 | History and Physical ---
History of Present Illness General Date patient seen: Jun 28, 2017 Time patient seen: 09:30 Reason for Hospitalization: Male Urogenital Problems Present Illness HPI 66 y/old male with hx of HTN and CVA in 2016 presented with gross hematuria. Patient had prior episode about a month ago and seen by primary care provided, according to the patient nothing was one This is the second episode of hematuria denied using blood thinners, but on ASA No fever, chill No n/v,/ no abdominal pain ,no blood ins tool Upon evaluation in ED stable HH, no leuk elevated BP 182/107 UA with blood, +4 protein, bacteria, no pyuria renal parameters stable CT A/P with 3.4 cm mass in the urinary bladder. Suspicious for neoplasm. patient was admitted to [facility] floor for further management Allergies: Coded Allergies: No Known Allergies (Unverified , 11/27/14) Medication History Scheduled Amlodipine Besylate (Norvasc), 5 MG ORAL DAILY Amlodipine Besylate (Norvasc), 10 MG ORAL DAILY, (Reported) Aspirin* (Aspirin*), 81 MG ORAL DAILY, (Reported) Docusate Sodium* (Colace*), 100 MG ORAL DAILY, (Reported) Esomeprazole Magnesium (Nexium), 40 MG ORAL DAILY, (Reported) Lisinopril (Lisinopril*), 20 MG ORAL DAILY, (Reported) Metoprolol Succinate* (Metoprolol Succinate*), 25 MG ORAL DAILY, (Reported) No Known Medications* (NKM - No Known Medications*), 0 ., (Reported) Pantoprazole* (Pantoprazole*), 40 MG ORAL DAILY, (Reported) Rosuvastatin Calcium* (Crestor*), 20 MG ORAL DAILY, (Reported) Tamsulosin Hcl (Tamsulosin Hcl*), 0.4 MG ORAL BEDTIME, (Reported) Scheduled PRN Hydrocodone Bit/Acetaminophen 5-325* ([place] 5-325*), 1 TAB ORAL Q6H PRN for For Pain Miscellaneous Medications Isosorbide Dinitrate (Isosorbide Dinitrate*), 10 MG ORAL, (Reported) Unable to Obtain Medications (Unable To Obtain Meds), (Reported) Patient History Healthcare decision maker Resuscitation status Advanced Directive on File Past Medical/Surgical History Past Medical/Surgical History: (1) CVA, old, hemiparesis (2) History of hypertension Review of Systems Constitutional: Reports: weakness Eye: Reports: no symptoms ENT: Reports: no symptoms Respiratory: Reports: no symptoms Cardiovascular: Reports: no symptoms, other - HTN Genitourinary: Reports: see HPI Musculoskeletal: Reports: no symptoms Psychiatric: Reports: no symptoms Neurological: Reports: no symptoms Endocrine: Reports: no symptoms Hematologic/Lymphatic: Reports: no symptoms Physical Exam General Appearance: WD/WN, no apparent distress, alert Lines, tubes and drains: peripheral HEENT: normocephalic, atraumatic, anicteric, mucous membranes moist Neck: non-tender, supple Respiratory/Chest: lungs clear, no respiratory distress, no accessory muscle use Cardiovascular/Chest: normal rate Abdomen: normal bowel sounds, non tender, soft Extremities: non-tender, no calf tenderness Neurologic: alert, responsive Musculoskeletal: normal muscle bulk Last 24 Hour Vital Signs Date Time Temp Pulse Resp B/P (MAP) Pulse Ox O2 Delivery O2 Flow Rate FiO2 06/28/17 06:59 71 15 178/92 100 Room Air 06/28/17 06:28 61 13 189/89 100 Room Air 06/28/17 06:26 189/89 06/28/17 05:02 63 182/95 06/28/17 04:45 98.2 63 12 182/95 100 Room Air 98.2 06/28/17 04:13 98.1 76 15 182/107 96 Room Air 98.1 Intake and Output 06/27/17 06/28/17 19:00 07:00 Intake Total 1050 ml Output Total 550 ml Balance 500 ml Intake IV Total 1050 ml Output Urine Total 550 ml # Voids 1 Laboratory Tests Test 06/28/17 04:30 06/28/17 05:23 White Blood Count 9.1 K/UL (4.8-10.8) Red Blood Count 4.57 M/UL (4.70-6.10) L Hemoglobin 14.5 G/DL (14.2-18.0) Hematocrit 43.0 % (42.0-52.0) Mean Corpuscular Volume 94 FL (80-99) Mean Corpuscular Hemoglobin 31.8 PG (27.0-31.0) H Mean Corpuscular Hemoglobin Concent 33.8 G/DL (32.0-36.0) Red Cell Distribution Width 11.3 % (11.6-14.8) L Platelet Count 172 K/UL (150-450) Mean Platelet Volume 8.3 FL (6.5-10.1) Neutrophils (%) (Auto) 71.5 % (45.0-75.0) Lymphocytes (%) (Auto) 18.0 % (20.0-45.0) L Monocytes (%) (Auto) 6.9 % (1.0-10.0) Eosinophils (%) (Auto) 2.5 % (0.0-3.0) Basophils (%) (Auto) 1.1 % (0.0-2.0) Sodium Level 145 MMOL/L (136-145) Potassium Level 3.9 MMOL/L (3.5-5.1) Chloride Level 109 MMOL/L (98-107) H Carbon Dioxide Level 27 MMOL/L (21-32) Anion Gap 9 mmol/L (5-15) Blood Urea Nitrogen 20 mg/dL (7-18) H Creatinine 1.1 MG/DL (0.55-1.30) Estimat Glomerular Filtration Rate > 60 mL/min (>60) Glucose Level 108 MG/DL (74-106) H Calcium Level 8.4 MG/DL (8.5-10.1) L Urine Color Red Urine Appearance Turbid Urine pH 6.5 (4.5-8.0) Urine Specific [place] 1.020 (1.005-1.035) Urine Protein 4+ (NEGATIVE) H Urine Glucose (UA) Negative (NEGATIVE) Urine Ketones Negative (NEGATIVE) Urine Occult Blood 5+ (NEGATIVE) H Urine Nitrite Negative (NEGATIVE) Urine Bilirubin Negative (NEGATIVE) Urine Urobilinogen Normal MG/DL (0.0-1.0) Urine Leukocyte Esterase 1+ (NEGATIVE) H Urine RBC Tntc /HPF (0 - 0) H Urine WBC 2-4 /HPF (0 - 0) Urine Squamous Epithelial Cells Occasional /LPF Urine Bacteria Moderate /HPF (NONE) H Height (Feet): 5 Height (Inches): 7.00 Weight (Pounds): 178 Assessment/Plan Assessment/Plan ASSESSMENT gross hematuria hypertensive urgency bladder mass, probably malignancy possible UTI hx of CVA PLAN OF CARE [facility] floor BP management with CCB, TARYN and BB ( home regimen resumed) hold ASA optimize anti HTN regimen further as needed urology eval monitor HH, stable for now empiric abx, fup with cx Venous Duplex BLE no heparin, SCD if Venous negative check lipid panel, PSA GI prophylaxis PT/OT will need placement case discussed and evaluated by supervising physician Jose (Mitch),[place] Jun 28, 2017 09:55
--- NOTE | 2017-06-28 17:13 | Diagnostic Imaging Report ---
Indication: Reason For Exam: ABD PAIN Technique: Continuous helical scanning was performed without any contrast material from the diaphragms through the pelvis for specific request of the ordering physician. Axial, sagittal, and coronal images were generated. Dose: Total Dose Length Product - DLP [address] Dose Index - CTDIvol(s) 23.06 mGy. Automated exposure control was utilized for dose reduction. Comparison: 06/10/2015 Findings: The liver is normal in size. There is a focal low density lesion laterally in the right lobe of liver unchanged. Calcified stones are noted in the gallbladder. The spleen is normal. The pancreas is unremarkable. Adrenal glands are somewhat lobulated but otherwise unremarkable. There are unchanged. The aorta is calcified. Retroperitoneum is free of adenopathy. Aorta and inferior vena cava are normal caliber. Scarring is noted in the cortex of the left kidney posteriorly. There are 2 tiny hyperdense lesions in the upper pole of left kidney, stable since previous study. Right kidney is unremarkable. The bowel is normal caliber. There is moderate fecal material in the rectum. There is a low density mass in the left side of the bladder with a small calcification. This measures approximately 3.3 cm. Prostate and seminal vesicles are unremarkable. Bones are osteopenic. There are small bilateral hernias containing fat. Scarring of the posterior cortex of the left kidney. Impression: Mass in the left side of the bladder with a tiny calcification. Possibility of neoplasm should be considered. Further evaluation with cystoscopy suggested. Nodularity of the adrenal glands, unchanged from previous study. Cholelithiasis. Small hypodense lesion in the lateral aspect of the right lobe of liver, unchanged, likely representing a cyst. Small hyperdense renal lesions on the left, unchanged. Small bilateral hernias containing fat. The above report is concordant with preliminary reading by [employer] . The CT scanner at [facility] [place] is accredited by the [employer] and the scans are performed using protocols designed to limit radiation exposure to as low as reasonably achievable to attain images of sufficient resolution adequate for diagnostic evaluation.
[2017-06-28] MEDS: Tamsulosin 0.4mg cap ORAL SCH (21:52)
[2017-06-29] VITALS (7 sets, daily range): BP systolic 100–149; BP diastolic 68–95
--- NOTE | 2017-06-29 03:45 | Consultation ---
DATE OF CONSULTATION: 06/28/2017 UROLOGY CONSULTATION CONSULTING PHYSICIAN: Nirav Vides M.D. ATTENDING/CONSULTING PHYSICIAN: Kellie Orellana M.D. CHIEF COMPLAINT/HISTORY OF PRESENT ILLNESS: I was asked by Dr. Orellana to evaluate this 66-year-old gentleman regarding history of gross hematuria. Briefly, the patient has a history of gross hematuria dating back a month ago. He saw his primary doctor and apparently nothing was done. He now returns to hospital with second episode of gross hematuria. The patient has a history of smoking, although he reports it was always less than a pack a day. He takes baby aspirin by report, but denies this currently. A CT scan was done revealing a 3.4 cm mass in the urinary bladder suspicious for possible neoplasm. As such, I was asked to evaluate the patient. PAST MEDICAL HISTORY: 1. CVA. 2. Hypertension. 3. Tobacco use. 4. Coronary artery disease. PAST SURGICAL HISTORY: Coronary artery bypass graft. MEDICATIONS: Please see the chart for current medication administration details. ALLERGIES: No known drug allergies. SOCIAL HISTORY: Notable for tobacco use. FAMILY HISTORY: Noncontributory. REVIEW OF SYSTEMS: A 12-system review of systems was essentially unremarkable outside of the findings described above. PHYSICAL EXAMINATION: GENERAL: The patient is an older gentleman, awake, alert, and oriented x4. HEENT: NC/AT. EOMI. NECK: Supple. Full range of motion. Oropharynx clear. CHEST: Within normal limits. Sternotomy scar clean, dry, and intact. ABDOMEN: Soft, nontender, and nondistended. EXTREMITIES: Warm and well perfused. No cyanosis, clubbing, or edema. BACK: No CVA tenderness to percussion. GENITOURINARY: Reveals a circumcised male phallus. No discharge, lesions, or curvature. There are bilateral descended testes and cord structures with no masses or tenderness to palpation. NEUROLOGIC: Grossly nonfocal. LABORATORY DATA: White blood cell count 9.1, hematocrit 43, and platelets 172,000. Sodium 145, potassium 3.9, chloride 109, bicarbonate 27, BUN 20, creatinine 1.1, glucose 108, and calcium 8.4. Urinalysis, specific gravity 1.020 and pH 6.5. Dip test notable for 4+ protein, 5+ occult blood, and 1+ leukocyte esterase. Microanalysis is too numerous to count red blood cells per high-power field, 2 to 4 white blood cells per high-power field, and moderate bacteria seen. DIAGNOSTIC IMAGING: CT scan of the abdomen and pelvis with a 3.4 cm bladder mass, worrisome for neoplasm. ASSESSMENT AND PLAN: In summary, the patient is a 66-year-old gentleman with history of smoking. He presents with a second episode of gross hematuria in the last month. He had a CT scan done revealing a 3.4 cm bladder mass, worrisome for possible neoplasm. Physical exam is essentially unremarkable. Laboratory data is likewise unremarkable outside of gross hematuria. There was moderate bacteria noted in his urine. Diagnostic imaging reveals the findings described above. I discussed these findings today with the patient at the bedside. There was concern that this bladder mass may represent a neoplasm and as such, he needs cystoscopy to evaluate same. His urine has cleared up significantly during his hospitalization here and I think it is reasonable that he follow up with me as an outpatient to undergo cystoscopy to evaluate this mass. If there is a bladder tumor, he may need a TURBT and/or further measures done for treatment of the same. The importance of following up regarding the same with me or another provider was reinforced to the patient, who understood and verbalized understanding of the same. Thank you for allowing me to participate in the care of this unfortunate gentleman. Please do not hesitate to contact me if you have any questions that you may further have regarding his care. I will see him with you as needed. Nirav Vides M.D. DR: Nuris JOB#: [id number] CC:
[2017-06-29 05:48] LABS: BASOPHILS % (AUTO) 1.2 % (0.0-2.0); EOSINOPHILS % (AUTO) 1.6 % (0.0-3.0); HEMATOCRIT 42.7 % (42.0-52.0); HEMOGLOBIN 13.9 G/DL (14.2-18.0); LYMPHOCYTES % (AUTO) 17.3 % (20.0-45.0); MEAN CORPUSCULAR VOLUME 94 FL (80-99); MONOCYTES % (AUTO) 6.3 % (1.0-10.0); NEUTROPHILS % (AUTO) 73.5 % (45.0-75.0); PLATELET COUNT 178 K/UL (150-450); RED BLOOD COUNT 4.53 M/UL (4.70-6.10); RED CELL DISTRIBUTION WIDTH 12.1 % (11.6-14.8); WHITE BLOOD COUNT 8.7 K/UL (4.8-10.8)
[2017-06-29] MEDS: cefTRIAXone 1 GM in D5W 55 ML IVPB SCH (06:06)
[2017-06-29 06:15] LABS: ALANINE AMINOTRANSFERASE 24 U/L (12-78); ALBUMIN 3.4 G/DL (3.4-5.0); ALBUMIN/GLOBULIN RATIO 0.9 (1.0-2.7); ALKALINE PHOSPHATASE 80 U/L (46-116); ASPARTATE AMINO TRANSFERASE 13 U/L (15-37); BLOOD UREA NITROGEN 24 mg/dL (7-18); CALCIUM 8.5 MG/DL (8.5-10.1); CARBON DIOXIDE 26 MMOL/L (21-32); CHOLESTEROL 201 MG/DL (< 200); CREATININE 1.1 MG/DL (0.55-1.30); TRIGLYCERIDES 141 MG/DL (30-150)
[2017-06-29 07:02] LABS: BILIRUBIN,TOTAL 0.5 MG/DL (0.2-1.0); HDL CHOLESTEROL 42 MG/DL (40-60)
[2017-06-29 07:18] LABS: CHLORIDE 111 MMOL/L (98-107); POTASSIUM 4.3 MMOL/L (3.5-5.1); SODIUM 145 MMOL/L (136-145)
[2017-06-29 07:19] LABS: ANION GAP 8 mmol/L (5-15)
[2017-06-29] MEDS: Lisinopril 20mg tab ORAL SCH (10:01)
[2017-06-29] MEDS: Metoprolol Succinate XL 25mg tab ORAL SCH (10:02)
--- NOTE | 2017-06-29 15:02 | Pulmonology Progress Note ---
Assessment/Plan Problems: (1) Hematuria (2) Bladder mass (3) CVA, old, hemiparesis (4) History of hypertension Assessment/Plan pt/ot pt wants to go to a detention monitor BP watch H/H transfuse prbc if hem less than 8. will use Amicar if bleeding starts Hematology/ oncology referral Subjective ROS Limited/Unobtainable: No Interval Events: less hematuria Allergies: Coded Allergies: No Known Allergies (Unverified , 11/27/14) Objective Last 24 Hour Vital Signs Date Time Temp Pulse Resp B/P (MAP) Pulse Ox O2 Delivery O2 Flow Rate FiO2 06/29/17 12:00 98.2 87 19 112/90 97 Room Air 98.2 06/29/17 10:02 99 141/93 06/29/17 10:02 99 141/93 06/29/17 10:01 141/93 06/29/17 08:54 74 16 Room Air 06/29/17 08:00 97.6 99 20 141/93 95 Room Air 97.6 06/29/17 04:45 97.9 81 18 149/95 99 Room Air 97.9 06/29/17 00:12 98.0 61 18 127/79 98 Room Air 98.0 06/28/17 20:41 83 18 Room Air 06/28/17 20:28 97.6 77 18 112/69 99 Room Air 97.6 06/28/17 18:00 97 18 127/81 99 Room Air 06/28/17 17:53 98.1 06/28/17 16:54 150/101 06/28/17 16:00 98.1 97 18 150/101 99 Room Air 98.1 Intake and Output 06/28/17 06/29/17 19:00 07:00 Intake Total 720 ml 240 ml Output Total 250 ml Balance 470 ml 240 ml Intake Oral 720 ml 240 ml Output Urine Total 250 ml # Voids 4 2 General Appearance: WD/WN HEENT: normocephalic, atraumatic Respiratory/Chest: chest wall non-tender, lungs clear, normal breath sounds Cardiovascular: normal peripheral pulses, normal rate, regular rhythm, regularly irregular Abdomen: normal bowel sounds, soft, non tender, no organomegaly Genitourinary: normal external genitalia Extremities: no cyanosis Skin: no rash, no ulcers 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 Lymphatic: no neck adenopathy Microbiology Date/Time Source Procedure Growth Status 06/28/17 05:23 Urine,Clean Catch Urine Culture - Preliminary NO GROWTH Resulted Laboratory Tests 06/29/17 05:15: White Blood Count 8.7, Red Blood Count 4.53L, Hemoglobin 13.9L, Hematocrit 42.7 , Mean Corpuscular Volume 94, Mean Corpuscular Hemoglobin 30.8, Mean Corpuscular Hemoglobin Concent 32.7, Red Cell Distribution Width 12.1, Platelet Count 178, Mean Platelet Volume 8.3, Neutrophils (%) (Auto) 73.5, Lymphocytes (% ) (Auto) 17.3L, Monocytes (%) (Auto) 6.3, Eosinophils (%) (Auto) 1.6, Basophils (%) (Auto) 1.2, Sodium Level 145, Potassium Level 4.3, Chloride Level 111H, Carbon Dioxide Level 26, Anion Gap 8, Blood Urea Nitrogen 24H, Creatinine 1.1, Estimat Glomerular Filtration Rate > 60, Glucose Level 112H, Hemoglobin A1c 5.7 , Calcium Level 8.5, Magnesium Level 2.2, Total Bilirubin 0.5, Aspartate Amino Transf (AST/SGOT) 13L, Alanine Aminotransferase (ALT/SGPT) 24, Alkaline Phosphatase 80, Total Protein 7.0, Albumin 3.4, Globulin 3.6, Albumin/Globulin Ratio 0.9L, Triglycerides Level 141, Cholesterol Level 201H, LDL Cholesterol 138H, HDL Cholesterol 42, Cholesterol/HDL Ratio 4.8H, Prostate Specific Antigen 0.72, Thyroid Stimulating Hormone (TSH) 1.447 Current Medications Medications (Trade) Dose Ordered Sig/Vladislav Route PRN Reason Start Time Stop Time Status Last Admin Dose Admin Acetaminophen (Tylenol) 650 mg Q4H PRN ORAL Mild Pain (Pain Scale 1-3) 06/28/17 09:45 07/28/17 09:44 06/28/17 16:54 Al Hydroxide/Mg Hydroxide (Mylanta II) 30 ml Q6H PRN ORAL dyspepsia 06/28/17 09:45 07/28/17 09:44 Albuterol/ Ipratropium (Albuterol/ Ipratropium) 3 ml QIDPRN PRN HHN Shortness of Breath 06/28/17 09:45 07/03/17 09:44 Amlodipine Besylate (Norvasc) 10 mg DAILY ORAL 06/29/17 09:00 07/29/17 08:59 06/29/17 10:02 Ceftriaxone Sodium 1 gm/ Dextrose 55 ml @ 110 mls/hr Q24H IVPB 06/29/17 06:00 07/06/17 05:59 06/29/17 06:06 Clonidine HCl (Catapres Tab) 0.1 mg Q6H PRN ORAL sbp above 160 06/28/17 09:45 07/28/17 09:44 06/28/17 16:54 Dextrose (Dextrose 50%) STAT PRN IV Hypoglycemia 06/28/17 09:45 07/28/17 09:44 Lisinopril (Prinivil) 20 mg DAILY ORAL 06/29/17 09:00 07/29/17 08:59 06/29/17 10:01 Lorazepam (Ativan 2mg/ml 1ml) 0.5 mg Q4H PRN IV For Anxiety 06/28/17 09:45 07/05/17 09:44 Metoprolol Succinate (Toprol XL) 25 mg DAILY ORAL 06/29/17 09:00 07/29/17 08:59 06/29/17 10:02 Pantoprazole (Protonix) 40 mg DAILY ORAL 06/29/17 09:00 07/29/17 08:59 06/29/17 10:02 Polyethylene Glycol (Miralax) 17 gm HSPRN PRN ORAL Constipation 06/28/17 09:45 07/28/17 09:44 Tamsulosin HCl (Flomax) 0.4 mg BEDTIME ORAL 06/28/17 21:00 07/28/17 20:59 06/28/17 21:52 Zolpidem Tartrate (Ambien) 5 mg HSPRN PRN ORAL Insomnia 06/28/17 09:45 07/05/17 09:44 Kellie Orellana MD Jun 29, 2017 15:02
[2017-06-29] MEDS: Tamsulosin 0.4mg cap ORAL SCH (20:59)
[2017-06-30 04:00] VITALS: BP 131/83
[2017-06-30] MEDS: cefTRIAXone 1 GM in D5W 55 ML IVPB SCH (05:19)
[2017-06-30 07:33] LABS: ALANINE AMINOTRANSFERASE 21 U/L (12-78); ALBUMIN 3.3 G/DL (3.4-5.0); ALKALINE PHOSPHATASE 73 U/L (46-116); ANION GAP 9 mmol/L (5-15); ASPARTATE AMINO TRANSFERASE 11 U/L (15-37); BILIRUBIN,TOTAL 0.6 MG/DL (0.2-1.0); BLOOD UREA NITROGEN 19 mg/dL (7-18); CALCIUM 8.2 MG/DL (8.5-10.1); CARBON DIOXIDE 25 MMOL/L (21-32); CHLORIDE 107 MMOL/L (98-107); PHOSPHORUS 3.1 MG/DL (2.5-4.9); SODIUM 141 MMOL/L (136-145)
[2017-06-30 07:37] LABS: EOSINOPHILS % (AUTO) 2.3 % (0.0-3.0); HEMATOCRIT 39.4 % (42.0-52.0); HEMOGLOBIN 13.6 G/DL (14.2-18.0); LYMPHOCYTES % (AUTO) 18.8 % (20.0-45.0); MEAN CORPUSCULAR VOLUME 93 FL (80-99); MONOCYTES % (AUTO) 7.1 % (1.0-10.0); NEUTROPHILS % (AUTO) 70.9 % (45.0-75.0); PLATELET COUNT 164 K/UL (150-450); RED BLOOD COUNT 4.21 M/UL (4.70-6.10); RED CELL DISTRIBUTION WIDTH 11.8 % (11.6-14.8); WHITE BLOOD COUNT 7.7 K/UL (4.8-10.8)
[2017-06-30 08:00] VITALS: BP 113/77
[2017-06-30] MEDS: Metoprolol Succinate XL 25mg tab ORAL SCH (08:55)
[2017-06-30] MEDS: Lisinopril 20mg tab ORAL SCH (08:57)
--- NOTE | 2017-06-30 09:15 | Consultation ---
DATE OF CONSULTATION: 06/29/2017 NOTE: POOR AUDIO QUALITY HEMATOLOGY/ONCOLOGY CONSULTATION CONSULTING PHYSICIAN: Bernard Salinas M.D. REQUESTING PHYSICIAN: Kellie Orellana M.D. REASON FOR CONSULTATION: Evaluation of bladder mass and evaluation of malignancy. IDENTIFICATION DATA: Dear Dr. Orellana and Dr. Vides: The patient is a pleasant 66-year-old male with past medical history significant for hypertension, CVA, CAD, risk factors that are significant for bladder cancer, at this time presents with gross hematuria. He has been seen by PCP and nothing appears to have been done. The patient has history of smoking again and has been taking baby aspirin. Denies any pain. Noted to have CAT scan, which showed 3.4-cm mass and also a mass in the right lobe of the liver which is unchanged, likely cyst, nodularity of the adrenal glands appears unchanged as well. Cystoscopy recommended on the notes by the CAT scan. Hematology/Oncology service consulted regarding evaluation of malignancy. PAST MEDICAL HISTORY: CAD, tobacco use, hypertension, CVA. PAST SURGICAL HISTORY: CABG. MEDICATIONS: Reviewed. ALLERGIES: No known drug allergies. SOCIAL HISTORY: No alcohol, tobacco, or illicit drug use. FAMILY HISTORY: Noncontributory. REVIEW OF SYSTEMS: CONSTITUTIONAL: No fever, chills, or night sweats. SKIN: No rashes, bumps, or itching. HEENT: No headache, hearing or vision changes. BREASTS: No lumps, pain, or discharge. PULMONARY: No cough, sputum, or shortness of breath. GASTROINTESTINAL: No nausea, vomiting, or diarrhea. GENITOURINARY: No dysuria, frequency, or urgency. MUSCULOSKELETAL: No joint swelling, muscle pain, or trauma. PHYSICAL EXAMINATION: VITAL SIGNS: Reviewed. GENERAL: No distress. PULMONARY: Decreased breath sounds. Some crackles noted. CARDIOVASCULAR: Regular rate. No S3. No S4. ABDOMEN: Soft, nontender, and nondistended. EXTREMITIES: No cyanosis, swelling, or edema noted. LABORATORY DATA: WBC 8.7, hemoglobin 13.9. Chemistry reviewed. BUN 24, creatinine 1.1. Albumin 3.4 . Urinalysis reviewed, positive for bacteria. ASSESSMENT AND RECOMMENDATIONS: 1. Bladder mass that is 3.4 cm. Reviewed the patient's CAT scan, worrisome for neoplasm. The patient presents with hematuria, concerning for neoplasm. He requires cystoscopy when urine clears up, potentially to be done either as an outpatient versus inpatient. Closely monitor for evaluation in the case that the patient requires cystoscopy and/or of bladder. 2. anemia due to hematuria, closely monitor, currently mild. 3. UTI. He is on broad-spectrum antibiotics. 4. Placement to housing versus long-term facility, transitional. 5. Consider use of Amicar and/or other agents in the case the patient bleeds. Continue PT/OT. Thank you for this consultation, Dr. Orellana. Bernard Salinas M.D. DR: GIO JOB#: [id number] CC:
[2017-06-30 12:00] VITALS: BP 109/66
[2017-06-30 16:00] VITALS: BP 112/73
--- NOTE | 2017-06-30 19:09 | Pulmonology Progress Note ---
Assessment/Plan Problems: (1) Hematuria (2) Bladder mass (3) CVA, old, hemiparesis (4) History of hypertension Assessment/Plan pt/ot monitor BP, controlled watch H/H, stable transfuse prbc if hem less than 8. will use Amicar if bleeding starts Hematology/ oncology referral as outpatient dc to to rehab. Subjective ROS Limited/Unobtainable: No Interval Events: doing better Allergies: Coded Allergies: No Known Allergies (Unverified , 11/27/14) Objective Last 24 Hour Vital Signs Date Time Temp Pulse Resp B/P (MAP) Pulse Ox O2 Delivery O2 Flow Rate FiO2 06/30/17 16:00 98.4 85 18 112/73 98 Room Air 98.4 06/30/17 12:00 98.5 74 18 109/66 100 Room Air 98.5 06/30/17 08:57 113/77 06/30/17 08:56 93 113/77 06/30/17 08:55 93 113/77 06/30/17 08:00 98.3 93 18 113/77 97 98.3 06/30/17 08:00 90 16 Room Air 21 06/30/17 04:00 98.0 87 17 131/83 100 98.0 06/29/17 23:48 97.9 75 18 120/71 96 97.9 06/29/17 20:16 96.9 82 19 113/76 96 96.9 Intake and Output 06/29/17 06/30/17 19:00 07:00 Intake Total 800 ml 350 ml Output Total 680 ml Balance 800 ml -330 ml Intake Oral 800 ml 350 ml Output Urine Total 680 ml # Voids 3 3 General Appearance: WD/WN HEENT: normocephalic, atraumatic Respiratory/Chest: chest wall non-tender, lungs clear, normal breath sounds Cardiovascular: normal peripheral pulses Abdomen: normal bowel sounds, soft, non tender, no organomegaly Genitourinary: normal external genitalia Extremities: no clubbing 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 Lymphatic: no neck adenopathy, no groin adenopathy Microbiology Date/Time Source Procedure Growth Status 06/28/17 05:23 Urine,Clean Catch Urine Culture - Preliminary NO GROWTH AFTER 24 HOURS Resulted Laboratory Tests 06/30/17 05:15: White Blood Count 7.7, Red Blood Count 4.21L, Hemoglobin 13.6L, Hematocrit 39.4L , Mean Corpuscular Volume 93, Mean Corpuscular Hemoglobin 32.3H, Mean Corpuscular Hemoglobin Concent 34.6, Red Cell Distribution Width 11.8, Platelet Count 164, Mean Platelet Volume 9.3, Neutrophils (%) (Auto) 70.9, Lymphocytes (% ) (Auto) 18.8L, Monocytes (%) (Auto) 7.1, Eosinophils (%) (Auto) 2.3, Basophils (%) (Auto) 1.0, Erythrocyte Sedimentation Rate 14, Sodium Level 141, Potassium Level 4.0, Chloride Level 107, Carbon Dioxide Level 25, Anion Gap 9, Blood Urea Nitrogen 19H, Creatinine 1.0, Estimat Glomerular Filtration Rate > 60, Glucose Level 95, Calcium Level 8.2L, Phosphorus Level 3.1, Magnesium Level 2.2, Total Bilirubin 0.6, Aspartate Amino Transf (AST/SGOT) 11L, Alanine Aminotransferase ( ALT/SGPT) 21, Alkaline Phosphatase 73, C-Reactive Protein, Quantitative < 0.4, Total Protein 6.6, Albumin 3.3L, Globulin 3.3, Albumin/Globulin Ratio 1.0 Current Medications Medications (Trade) Dose Ordered Sig/Vladislav Route PRN Reason Start Time Stop Time Status Last Admin Dose Admin Acetaminophen (Tylenol) 650 mg Q4H PRN ORAL Mild Pain (Pain Scale 1-3) 06/28/17 09:45 07/28/17 09:44 06/28/17 16:54 Al Hydroxide/Mg Hydroxide (Mylanta II) 30 ml Q6H PRN ORAL dyspepsia 06/28/17 09:45 07/28/17 09:44 Albuterol/ Ipratropium (Albuterol/ Ipratropium) 3 ml QIDPRN PRN HHN Shortness of Breath 06/28/17 09:45 07/03/17 09:44 Amlodipine Besylate (Norvasc) 10 mg DAILY ORAL 06/29/17 09:00 07/29/17 08:59 06/30/17 08:56 Ceftriaxone Sodium 1 gm/ Dextrose 55 ml @ 110 mls/hr Q24H IVPB 06/29/17 06:00 07/06/17 05:59 06/30/17 05:19 Clonidine HCl (Catapres Tab) 0.1 mg Q6H PRN ORAL sbp above 160 06/28/17 09:45 07/28/17 09:44 06/28/17 16:54 Dextrose (Dextrose 50%) STAT PRN IV Hypoglycemia 06/28/17 09:45 07/28/17 09:44 Lisinopril (Prinivil) 20 mg DAILY ORAL 06/29/17 09:00 07/29/17 08:59 06/30/17 08:57 Lorazepam (Ativan 2mg/ml 1ml) 0.5 mg Q4H PRN IV For Anxiety 06/28/17 09:45 07/05/17 09:44 Metoprolol Succinate (Toprol XL) 25 mg DAILY ORAL 06/29/17 09:00 07/29/17 08:59 06/30/17 08:55 Pantoprazole (Protonix) 40 mg DAILY ORAL 06/29/17 09:00 07/29/17 08:59 06/30/17 08:56 Polyethylene Glycol (Miralax) 17 gm HSPRN PRN ORAL Constipation 06/28/17 09:45 07/28/17 09:44 Tamsulosin HCl (Flomax) 0.4 mg BEDTIME ORAL 06/28/17 21:00 07/28/17 20:59 06/29/17 20:59 Zolpidem Tartrate (Ambien) 5 mg HSPRN PRN ORAL Insomnia 06/28/17 09:45 07/05/17 09:44 Kellie Orellana MD Jun 30, 2017 19:09
[2017-06-30 20:00] VITALS: BP 105/70
[2017-06-30] MEDS: Tamsulosin 0.4mg cap ORAL SCH (20:58)
[2017-07-01] VITALS: BP 131/73
[2017-07-01 04:00] VITALS: BP 120/80
[2017-07-01] MEDS: cefTRIAXone 1 GM in D5W 55 ML IVPB SCH (05:30)
[2017-07-01 08:00] VITALS: BP 128/80
[2017-07-01] MEDS: Metoprolol Succinate XL 25mg tab ORAL SCH (08:29)
[2017-07-01] MEDS: Lisinopril 20mg tab ORAL SCH (08:29)
[2017-07-01 12:00] VITALS: BP 121/81
--- NOTE | 2017-07-01 23:46 | General Progress Note ---
Assessment/Plan Assessment/Plan 1. Bladder mass that is 3.4 cm. Reviewed the patient's CAT scan, worrisome for neoplasm. --> The patient presents with hematuria, concerning for neoplasm. --> He requires cystoscopy when urine clears up, potentially to be done either as an outpatient versus inpatient. --> Closely monitor for evaluation in the case that the patient requires cystoscopy --> Cont. treatment as outpatient 2. Anemia due to hematuria, closely monitor, currently mild. --> does not need blood transfusion at this time 3. UTI. He is on broad-spectrum antibiotics. --> monitor for improvement. 4. Placement to housing versus [facility] facility, transitional. 5. Consider use of Amicar and/or other agents in the case the patient bleeds. Continue PT/OT. Subjective Date patient seen: Jun 30, 2017 Constitutional: Denies: no symptoms, chills, diaphoresis, fever, malaise, weakness, other HEENT: Denies: no symptoms, eye pain, blurred vision, tearing, double vision, ear pain, ear discharge, nose pain, nose congestion, throat pain, throat swelling, mouth pain, mouth swelling, other Cardiovascular: Denies: no symptoms, chest pain, edema, irregular heart rate, lightheadedness, palpitations, syncope, other Gastrointestinal/Abdominal: Denies: no symptoms, abdomen distended, abdominal pain, black stools, tarry stools, blood in stool, constipated, diarrhea, difficulty swallowing, nausea, poor appetite, poor fluid intake, rectal bleeding , vomiting, other Genitourinary: Denies: no symptoms, burning, discharge, frequency, flank pain, hematuria, incontinence, pain, urgency, other Neurologic/Psychiatric: Denies: no symptoms, anxiety, depressed, emotional problems, headache, numbness, paresthesia, pre-existing deficit, seizure, tingling, tremors, weakness, other Allergies: Coded Allergies: No Known Allergies (Unverified , 11/27/14) Subjective No fever or chills. H/H stable. On pain control. Objective Last 24 Hour Vital Signs Date Time Temp Pulse Resp B/P (MAP) Pulse Ox O2 Delivery O2 Flow Rate FiO2 07/01/17 12:00 98.0 76 18 121/81 96 98.0 07/01/17 08:29 62 128/80 07/01/17 08:29 62 128/80 07/01/17 08:29 128/80 07/01/17 08:00 97.9 62 18 128/80 97 97.9 07/01/17 07:26 70 16 Room Air 21 07/01/17 04:00 98.2 60 18 120/80 95 Room Air 98.2 07/01/17 00:00 98.1 57 17 131/73 96 Room Air 98.1 Intake and Output 06/30/17 07/01/17 19:00 07:00 Intake Total 800 ml 480 ml Output Total 550 ml Balance 800 ml -70 ml Intake Oral 800 ml 480 ml Output Urine Total 550 ml Height (Feet): 5 Height (Inches): 7.00 Weight (Pounds): 178 General Appearance: lethargic Respiratory/Chest: decreased breath sounds Abdomen: soft Bernard Salinas MD Jul 01, 2017 23:46
--- NOTE | 2017-07-02 08:14 | Diagnostic Imaging Report ---
APPROVED REPORT CPT Code: 47257 Present Symptoms Comments: BILATERAL LEGS PAIN. BILATERAL: Imaging reveals a patent deep venous system bilaterally. There is no evidence of thrombus within the femoral, popliteal or tibial segments. The greater saphenous veins are also within normal limits. Doppler indicates normal spontaneous flow within these segments.
--- NOTE | 2017-07-02 22:15 | Discharge Summary 2 SIG ---
DATE OF ADMISSION: 06/28/2017 DATE OF DISCHARGE: 07/01/2017 CONSULTANTS: 1. Nirav Vides M.D. 2. Bernard Salinas M.D. BRIEF HOSPITAL COURSE: The patient is a 66-year-old male with history of hypertension and CVA in 2016 presented to ED complaining of gross hematuria. The patient had a prior episode about a month ago and was seen by primary care provider however according to the patient nothing was done, this was his second episode. He denied using any blood thinners but is on aspirin. He denied fever or chills. No nausea. No vomiting. No abdominal pain. No blood in stool. On evaluation at ED, he had stable hemoglobin and hematocrit. There was no leukocytosis noted. Blood pressure was elevated to 182/107. Urinalyses showed 4+ protein, bacteria, occult blood, no pyuria. CT of the abdomen and pelvis showed a 3.4 cm mass on the urinary bladder suspicious for neoplasm. He was then admitted for further management. Aspirin was placed on hold. He had a venous duplex of lower extremity which was negative for DVT. He was placed on SCDs for DVT prophylaxis. He underwent neurological evaluation with Dr. Gastelum. The patient was advised need to undergo cystoscopy to evaluate bladder mass. His urine has cleared up significantly and the patient able to followup as outpatient to undergo cystoscopy. He was advised if there was a bladder tumor he may need TURBT. He verbalized understanding. He was given ceftriaxone and was given Flomax. Urine culture did not isolate any growth. He was given PT and OT. His hemoglobin levels had been stable. He was eventually discharged to a SNF. FINAL DIAGNOSES: 1. Hematuria. 2. Bladder mass. 3. Old cerebrovascular accident. 4. Hypertension. 5. Anemia due to hematuria. 6. Possible urinary tract infection. DISPOSITION: The patient was discharged to rehabilitation on [place]. DISCHARGE MEDICATIONS: Refer to medication list. Kellie Orellana M.D. I have been assigned to dictate discharge summary on this account and I was not involved in the patient's management. Pamella Negron N.P. DR: Mark JOB#: [id number] CC: JOHN
--- NOTE | 2017-07-03 00:33 | General Progress Note ---
Assessment/Plan Assessment/Plan 1. Bladder mass that is 3.4 cm. Reviewed the patient's CAT scan, worrisome for neoplasm. --> The patient presents with hematuria, concerning for neoplasm. --> He requires cystoscopy when urine clears up, potentially to be done either as an outpatient versus inpatient. --> Closely monitor for evaluation in the case that the patient requires cystoscopy --> Cont. treatment as outpatient 2. Anemia due to hematuria, closely monitor, currently mild. --> does not need blood transfusion at this time 3. UTI. He is on broad-spectrum antibiotics. --> monitor for improvement. 4. Placement to housing versus [facility] facility, transitional. 5. Consider use of Amicar and/or other agents in the case the patient bleeds. Continue PT/OT. Subjective Date patient seen: Jul 01, 2017 Constitutional: Denies: no symptoms, chills, diaphoresis, fever, malaise, weakness, other HEENT: Denies: no symptoms, eye pain, blurred vision, tearing, double vision, ear pain, ear discharge, nose pain, nose congestion, throat pain, throat swelling, mouth pain, mouth swelling, other Cardiovascular: Denies: no symptoms, chest pain, edema, irregular heart rate, lightheadedness, palpitations, syncope, other Respiratory: Denies: no symptoms, cough, orthopnea, shortness of breath, SOB with excertion, SOB at rest, sputum, stridor, wheezing, other Gastrointestinal/Abdominal: Denies: no symptoms, abdomen distended, abdominal pain, black stools, tarry stools, blood in stool, constipated, diarrhea, difficulty swallowing, nausea, poor appetite, poor fluid intake, rectal bleeding , vomiting, other Genitourinary: Denies: no symptoms, burning, discharge, frequency, flank pain, hematuria, incontinence, pain, urgency, other Neurologic/Psychiatric: Denies: no symptoms, anxiety, depressed, emotional problems, headache, numbness, paresthesia, pre-existing deficit, seizure, tingling, tremors, weakness, other Hematologic/Lymphatic: Reports: anemia Allergies: Coded Allergies: No Known Allergies (Unverified , 11/27/14) Subjective No acute events overnight. Pending placement in SNF. Objective Height (Feet): 5 Height (Inches): 7.00 Weight (Pounds): 178 General Appearance: no apparent distress Respiratory/Chest: decreased breath sounds Abdomen: soft Bernard Salinas MD Jul 03, 2017 00:33
== END 2017-07-01 12:42 | DRG 687 ==
LOC: EDBD 04:21 → EMR 04:30 → EDBEDREQ 06:16 → 3E 06:25 → EDBEDREQ 08:27
DX: D49.4 Neoplasm of unspecified behavior of bladder (principal); N39.0 Urinary tract infection, site not specified; I69.359 Hemiplegia and hemiparesis following cerebral infarction affecting unspecified side; R31.0 Gross hematuria; I16.0 Hypertensive urgency; D50.0 Iron deficiency anemia secondary to blood loss (chronic); Z87.891 Personal history of nicotine dependence; Z95.1 Presence of aortocoronary bypass graft; I10 Essential (primary) hypertension; I25.10 Atherosclerotic heart disease of native coronary artery without angina pectoris
CPT/HCPCS: 36415; 74176; 80048; 80053; 80061; 81003; 83036; 83735; 84100; 84153; 84443; 85025; 85651; 86140; 87086; 93970; 94664; 99285

== ENCOUNTER 2017-08-04 11:12 | Inpatient (IN) | payer MEDICARE, OTHER ==
[~2017-08-04] VITALS: Ht 172.7 cm; Wt 83.9 kg
[2017-08-04 11:40] LABS: BASOPHILS % (AUTO) 0.9 % (0.0-2.0); EOSINOPHILS % (AUTO) 0.8 % (0.0-3.0); HEMATOCRIT 41.3 % (42.0-52.0); HEMOGLOBIN 14.1 G/DL (14.2-18.0); LYMPHOCYTES % (AUTO) 13.2 % (20.0-45.0); MEAN CORPUSCULAR VOLUME 93 FL (80-99); MONOCYTES % (AUTO) 7.1 % (1.0-10.0); NEUTROPHILS % (AUTO) 77.9 % (45.0-75.0); PLATELET COUNT 178 K/UL (150-450); RED BLOOD COUNT 4.42 M/UL (4.70-6.10); RED CELL DISTRIBUTION WIDTH 11.5 % (11.6-14.8); WHITE BLOOD COUNT 9.3 K/UL (4.8-10.8)
[2017-08-04 11:44] VITALS: BP 102/64
--- NOTE | 2017-08-04 11:49 | Emergency Room Report ---
History of Present Illness General Chief Complaint: Chest Pain Source: Patient Present Illness HPI Patient presents with complaints of midsternal chest pain Started this morning after waking up Pain is a sharp pain Denies any vomiting denies any diarrhea Denies any shortness of breath or pleurisy Denies any recent travel Denies any change with position or exertion pain is 5 out of 10 heaviness along with a sharp aspect Allergies: Coded Allergies: No Known Allergies (Unverified , 11/27/14) Patient History Past Medical History: see triage record Pertinent Family History: none Reviewed Nursing Documentation: PMH: Agreed; PSxH: Agreed Nursing Documentation-PMH Hx Cardiac Problems: Yes - ACS Hx Hypertension: Yes Hx Pacemaker: No Hx Asthma: No Hx COPD: No Hx Diabetes: No Hx Cancer: No Hx Gastrointestinal Problems: No Hx Dialysis: No Hx Neurological Problems: No - LEFT CEREBRAL EDEMA. Hx Cerebrovascular Accident: Yes Hx Seizures: No Hx Paralysis: Yes - HEMIPARESIS Hx Headaches: Yes Hx Neurologic Surgery: No Review of Systems All Other Systems: negative except mentioned in HPI Physical Exam Vital Signs Date Time Temp Pulse Resp B/P (MAP) Pulse Ox O2 Delivery O2 Flow Rate FiO2 08/04/17 11:18 98.2 103 19 98/70 99 Room Air 98.2 Sp02 EP Interpretation: reviewed, normal General Appearance: well appearing, no apparent distress Head: other - evidence of previous right-sided craniectomy Eyes: bilateral eye PERRL, bilateral eye EOMI ENT: hearing grossly normal, normal pharynx, TMs + canals normal, uvula midline Neck: full range of motion, supple, no meningismus, no bony tend Respiratory: lungs clear, normal breath sounds, no rhonchi, no respiratory distress, no retraction, no accessory muscle use Cardiovascular #1: normal peripheral pulses, regular rate, rhythm, no edema, no gallop, no JVD, no murmur, other - midsternal surgical scar Gastrointestinal: normal bowel sounds, non tender, soft, no mass, no organomegaly, non-distended, no guarding, no hernia, no pulsatile mass, no rebound Genitourinary: no CVA tenderness Musculoskeletal: normal inspection Neurologic: oriented x3, responsive, drawer in III-XII nml as tested, motor strength/ tone normal, sensory intact Psychiatric: mood/affect normal Skin: normal color, no rash, warm/dry, palpation normal Lymphatic: normal inspection, no adenopathy Medical Decision Making Diagnostic Impression: Primary Impression: ACS (acute coronary syndrome) ER Course Patient is a fairly complex patient with multiple differential to consideration including but not limited to cardiac cardiopulmonary and vascular emergencies Patient's blood work and imaging are at appropriate levels patient was given aspirin here in the ER has done significantly better with acute intervention and requires admission for further care Labs Test 08/04/17 11:30 White Blood Count 9.3 K/UL (4.8-10.8) Red Blood Count 4.42 M/UL (4.70-6.10) Hemoglobin 14.1 G/DL (14.2-18.0) Hematocrit 41.3 % (42.0-52.0) Mean Corpuscular Volume 93 FL (80-99) Mean Corpuscular Hemoglobin 31.9 PG (27.0-31.0) Mean Corpuscular Hemoglobin Concent 34.2 G/DL (32.0-36.0) Red Cell Distribution Width 11.5 % (11.6-14.8) Platelet Count 178 K/UL (150-450) Mean Platelet Volume 8.7 FL (6.5-10.1) Neutrophils (%) (Auto) 77.9 % (45.0-75.0) Lymphocytes (%) (Auto) 13.2 % (20.0-45.0) Monocytes (%) (Auto) 7.1 % (1.0-10.0) Eosinophils (%) (Auto) 0.8 % (0.0-3.0) Basophils (%) (Auto) 0.9 % (0.0-2.0) Sodium Level 141 MMOL/L (136-145) Potassium Level 3.9 MMOL/L (3.5-5.1) Chloride Level 108 MMOL/L (98-107) Carbon Dioxide Level 23 MMOL/L (21-32) Anion Gap 10 mmol/L (5-15) Blood Urea Nitrogen 24 mg/dL (7-18) Creatinine 1.4 MG/DL (0.55-1.30) Estimat Glomerular Filtration Rate 50.4 mL/min (>60) Glucose Level 131 MG/DL (74-106) Calcium Level 8.8 MG/DL (8.5-10.1) Total Bilirubin 0.5 MG/DL (0.2-1.0) Aspartate Amino Transf (AST/SGOT) 13 U/L (15-37) Alanine Aminotransferase (ALT/SGPT) 28 U/L (12-78) Alkaline Phosphatase 81 U/L (46-116) Total Creatine Kinase 73 U/L (26-308) Creatine Kinase MB < 0.5 NG/ML (0.0-3.6) Creatine Kinase MB Relative Index Troponin I 0.000 ng/mL (0.000-0.056) Pro-B-Type Natriuretic Peptide 72 pg/mL (0-125) Total Protein 7.2 G/DL (6.4-8.2) Albumin 3.4 G/DL (3.4-5.0) Globulin 3.8 g/dL Albumin/Globulin Ratio 0.9 (1.0-2.7) Lipase 200 U/L (73-393) EKG Diagnostic Results Rate: normal Rhythm: NSR ST Segments: no acute changes Rhythm Strip Diag. Results EP Interpretation: yes Rate: 77 Rhythm: NSR, no PVC's, no ectopy Chest X-Ray Diagnostic Results Chest X-Ray Diagnostic Results : Chest X-Ray Ordered: Yes # of Views/Limited/Complete: 1 View Indication: Chest Pain EP Interpretation: Yes Interpretation: no consolidation, no effusion, no pneumothorax Impression: No acute disease Electronically Signed by: Susan Pereira DO Last Vital Signs Date Time Temp Pulse Resp B/P (MAP) Pulse Ox O2 Delivery O2 Flow Rate FiO2 08/04/17 11:44 98.2 94 18 102/64 99 Room Air 98.2 Status: improved Disposition: ADMITTED INPATIENT Condition: Serious Susan Pereira DO August 04, 2017 11:49
[2017-08-04 11:50] LABS: ANION GAP 10 mmol/L (5-15); BLOOD UREA NITROGEN 24 mg/dL (7-18); CALCIUM 8.8 MG/DL (8.5-10.1); CARBON DIOXIDE 23 MMOL/L (21-32); CHLORIDE 108 MMOL/L (98-107); CREATININE 1.4 MG/DL (0.55-1.30); POTASSIUM 3.9 MMOL/L (3.5-5.1); SODIUM 141 MMOL/L (136-145)
[2017-08-04 12:05] LABS: ALANINE AMINOTRANSFERASE 28 U/L (12-78); ALBUMIN 3.4 G/DL (3.4-5.0); ALBUMIN/GLOBULIN RATIO 0.9 (1.0-2.7); ALKALINE PHOSPHATASE 81 U/L (46-116); ASPARTATE AMINO TRANSFERASE 13 U/L (15-37); BILIRUBIN,TOTAL 0.5 MG/DL (0.2-1.0); CKMB < 0.5 NG/ML (0.0-3.6); CREATINE KINASE 73 U/L (26-308)
[2017-08-04 13:13] VITALS: BP 104/67
--- NOTE | 2017-08-04 13:41 | History and Physical ---
History of Present Illness General Date patient seen: August 04, 2017 Reason for Hospitalization: Chest Pain Present Illness HPI 66 year old male with hx of CAD, CVA, bladder mass, hx of previous hematuria, presented to ER with CC of Chest pain and hematuria. He was recently admitted with the same symptoms. He CT of abdomen showed a bladder mass. He was advised to have cystoscopy as outpatient. He returns to hospital with the same symptoms. Apparently he didn't have any biopsy for his bladder mass. Allergies: Coded Allergies: No Known Allergies (Unverified , 11/27/14) Medication History Scheduled Amlodipine Besylate (Norvasc), 5 MG ORAL DAILY Amlodipine Besylate (Norvasc), 10 MG ORAL DAILY, (Reported) Aspirin* (Aspirin*), 81 MG ORAL DAILY, (Reported) Docusate Sodium* (Colace*), 100 MG ORAL DAILY, (Reported) Esomeprazole Magnesium (Nexium), 40 MG ORAL DAILY, (Reported) Lisinopril (Lisinopril*), 20 MG ORAL DAILY, (Reported) Metoprolol Succinate* (Metoprolol Succinate*), 25 MG ORAL DAILY, (Reported) No Known Medications* (NKM - No Known Medications*), 0 ., (Reported) Pantoprazole* (Pantoprazole*), 40 MG ORAL DAILY, (Reported) Rosuvastatin Calcium* (Crestor*), 20 MG ORAL DAILY, (Reported) Tamsulosin Hcl (Tamsulosin Hcl*), 0.4 MG ORAL BEDTIME, (Reported) Scheduled PRN Hydrocodone Bit/Acetaminophen 5-325* ([place] 5-325*), 1 TAB ORAL Q6H PRN for For Pain Miscellaneous Medications Isosorbide Dinitrate (Isosorbide Dinitrate*), 10 MG ORAL, (Reported) Unable to Obtain Medications (Unable To Obtain Meds), (Reported) Patient History Healthcare decision maker Resuscitation status Advanced Directive on File Past Medical/Surgical History Past Medical/Surgical History: (1) Hematuria (2) CVA, old, hemiparesis Review of Systems All Other Systems: negative except mentioned in HPI Physical Exam General Appearance: WD/WN Lines, tubes and drains: peripheral HEENT: normocephalic, anicteric Neck: non-tender, normal alignment Respiratory/Chest: chest wall non-tender, lungs clear Breasts: no masses Cardiovascular/Chest: normal peripheral pulses Abdomen: normal bowel sounds Genitourinary/Rectal: normal rectal exam Extremities: normal range of motion Last 24 Hour Vital Signs Date Time Temp Pulse Resp B/P (MAP) Pulse Ox O2 Delivery O2 Flow Rate FiO2 08/04/17 13:13 98.4 78 17 104/67 99 Room Air 98.4 08/04/17 11:44 98.2 94 18 102/64 99 Room Air 98.2 08/04/17 11:22 101 19 Room Air 08/04/17 11:18 98.2 103 19 98/70 99 Room Air 98.2 Laboratory Tests Test 08/04/17 11:30 White Blood Count 9.3 K/UL (4.8-10.8) Red Blood Count 4.42 M/UL (4.70-6.10) L Hemoglobin 14.1 G/DL (14.2-18.0) L Hematocrit 41.3 % (42.0-52.0) L Mean Corpuscular Volume 93 FL (80-99) Mean Corpuscular Hemoglobin 31.9 PG (27.0-31.0) H Mean Corpuscular Hemoglobin Concent 34.2 G/DL (32.0-36.0) Red Cell Distribution Width 11.5 % (11.6-14.8) L Platelet Count 178 K/UL (150-450) Mean Platelet Volume 8.7 FL (6.5-10.1) Neutrophils (%) (Auto) 77.9 % (45.0-75.0) H Lymphocytes (%) (Auto) 13.2 % (20.0-45.0) L Monocytes (%) (Auto) 7.1 % (1.0-10.0) Eosinophils (%) (Auto) 0.8 % (0.0-3.0) Basophils (%) (Auto) 0.9 % (0.0-2.0) Sodium Level 141 MMOL/L (136-145) Potassium Level 3.9 MMOL/L (3.5-5.1) Chloride Level 108 MMOL/L (98-107) H Carbon Dioxide Level 23 MMOL/L (21-32) Anion Gap 10 mmol/L (5-15) Blood Urea Nitrogen 24 mg/dL (7-18) H Creatinine 1.4 MG/DL (0.55-1.30) H Estimat Glomerular Filtration Rate 50.4 mL/min (>60) Glucose Level 131 MG/DL (74-106) H Calcium Level 8.8 MG/DL (8.5-10.1) Total Bilirubin 0.5 MG/DL (0.2-1.0) Aspartate Amino Transf (AST/SGOT) 13 U/L (15-37) L Alanine Aminotransferase (ALT/SGPT) 28 U/L (12-78) Alkaline Phosphatase 81 U/L (46-116) Total Creatine Kinase 73 U/L (26-308) Creatine Kinase MB < 0.5 NG/ML (0.0-3.6) Creatine Kinase MB Relative Index Troponin I 0.000 ng/mL (0.000-0.056) Pro-B-Type Natriuretic Peptide 72 pg/mL (0-125) Total Protein 7.2 G/DL (6.4-8.2) Albumin 3.4 G/DL (3.4-5.0) Globulin 3.8 g/dL Albumin/Globulin Ratio 0.9 (1.0-2.7) L Lipase 200 U/L (73-393) Height (Feet): 5 Height (Inches): 8.00 Weight (Pounds): 184 Medications Current Medications Medications (Trade) Dose Ordered Sig/Vladislav Route PRN Reason Start Time Stop Time Status Last Admin Dose Admin Acetaminophen (Tylenol) 650 mg Q4H PRN ORAL T>100.5 F 08/04/17 13:45 09/03/17 13:44 Albuterol/ Ipratropium (Albuterol/ Ipratropium) 3 ml EVERY 4 HOURS PRN HHN Shortness of Breath 08/04/17 13:45 08/09/17 13:44 UNV Amlodipine Besylate (Norvasc) 5 mg DAILY ORAL 08/05/17 09:00 09/04/17 08:59 Aspirin (ASA) 162 mg DAILY ORAL 08/05/17 09:00 09/04/17 08:59 Diltiazem HCl (Cardizem) 10 mg EVERY HOUR PRN IV heart rate more than 120, 08/04/17 13:45 09/03/17 13:44 UNV Enalaprilat (Vasotec) 2.5 mg EVERY 6 HOURS PRN IV sbp more than 160 5/8/18 13:45 09/03/17 13:44 UNV Heparin Sodium (Porcine) (Heparin 5000 units/ml) 5,000 units EVERY 12 HOURS SUBQ 08/04/17 21:00 09/03/17 20:59 UNV Lisinopril (Prinivil) 20 mg DAILY ORAL 08/05/17 09:00 09/04/17 08:59 Metoprolol Succinate (Toprol XL) 25 mg DAILY ORAL 08/05/17 09:00 09/04/17 08:59 Nitroglycerin (Ntg) 0.4 mg Q5MIN X 3 DOSES PRN SL Prn Chest Pain 08/04/17 13:45 09/03/17 13:44 Ondansetron HCl (Zofran) 4 mg Q6H PRN IVP Nausea & Vomiting 08/04/17 13:45 09/03/17 13:44 UNV Polyethylene Glycol (Miralax) 17 gm DAILYPRN PRN ORAL Constipation 08/04/17 13:45 09/03/17 13:44 UNV Tamsulosin HCl (Flomax) 0.4 mg BEDTIME ORAL 08/04/17 21:00 09/03/17 20:59 Temazepam (Restoril) 15 mg HSPRN PRN ORAL Insomnia 08/04/17 13:45 08/11/17 13:44 UNV Assessment/Plan Problem List: (1) ACS (acute coronary syndrome) ICD Codes: I24.9 - Acute ischemic heart disease, unspecified SNOMED: 518647792 (2) Hematuria ICD Codes: R31.9 - Hematuria, unspecified SNOMED: 73122956 (3) CVA, old, hemiparesis ICD Codes: I69.359 - Hemiplga following cerebral infarction affecting unsp side SNOMED: 245391799 (4) Bladder mass ICD Codes: N32.89 - Other specified disorders of bladder SNOMED: 208694035 (5) History of hypertension ICD Codes: Z86.79 - Personal history of other diseases of the circulatory system SNOMED: 005819120 Assessment/Plan serial ekg, troponin, echocardiogram cardiology evaluation Urology evaluation Oncology evaluation Kellie Orellana MD August 04, 2017 13:41
[2017-08-04] MEDS ORDERED: Nitroglycerin Subl 0.4mg tab SL PRN (13:45)
[2017-08-04] MEDS ORDERED: Albuterol/Ipratropium 3ml neb HHN PRN (13:45)
[2017-08-04] MEDS ORDERED: Ketorolac 30mg Inj IV PRN (13:45)
[2017-08-04] MEDS ORDERED: dilTIAZem HCl 25mg/5ml Inj IV PRN (13:45)
[2017-08-04] MEDS ORDERED: Miralax 17gm pkt ORAL PRN (13:45)
[2017-08-04] MEDS ORDERED: Enalaprilat 2.5mg/2ml Inj IV PRN (13:45)
[2017-08-04 13:50] VITALS: BP 110/73
--- NOTE | 2017-08-04 14:21 | Diagnostic Imaging Report ---
Indication: Chest pain Comparison: 05/06/2016 A single view chest radiograph was obtained. Findings: Sternotomy noted. Bones are osteopenic. Heart size is normal. Lungs are clear. IMPRESSION: No acute disease
--- NOTE | 2017-08-04 14:48 | Cardiology Progress Note ---
Assessment/Plan Assessment/Plan [id number] Objective Last 24 Hour Vital Signs Date Time Temp Pulse Resp B/P (MAP) Pulse Ox O2 Delivery O2 Flow Rate FiO2 08/04/17 14:15 98.3 70 19 118/74 95 Room Air 98.4 08/04/17 13:13 98.4 78 17 104/67 99 Room Air 98.4 08/04/17 11:44 98.2 94 18 102/64 99 Room Air 98.2 08/04/17 11:22 101 19 Room Air 08/04/17 11:18 98.2 103 19 98/70 99 Room Air 98.2 Laboratory Tests Test 08/04/17 11:30 08/04/17 13:45 White Blood Count 9.3 K/UL (4.8-10.8) Red Blood Count 4.42 M/UL (4.70-6.10) L Hemoglobin 14.1 G/DL (14.2-18.0) L Hematocrit 41.3 % (42.0-52.0) L Mean Corpuscular Volume 93 FL (80-99) Mean Corpuscular Hemoglobin 31.9 PG (27.0-31.0) H Mean Corpuscular Hemoglobin Concent 34.2 G/DL (32.0-36.0) Red Cell Distribution Width 11.5 % (11.6-14.8) L Platelet Count 178 K/UL (150-450) Mean Platelet Volume 8.7 FL (6.5-10.1) Neutrophils (%) (Auto) 77.9 % (45.0-75.0) H Lymphocytes (%) (Auto) 13.2 % (20.0-45.0) L Monocytes (%) (Auto) 7.1 % (1.0-10.0) Eosinophils (%) (Auto) 0.8 % (0.0-3.0) Basophils (%) (Auto) 0.9 % (0.0-2.0) Sodium Level 141 MMOL/L (136-145) Potassium Level 3.9 MMOL/L (3.5-5.1) Chloride Level 108 MMOL/L (98-107) H Carbon Dioxide Level 23 MMOL/L (21-32) Anion Gap 10 mmol/L (5-15) Blood Urea Nitrogen 24 mg/dL (7-18) H Creatinine 1.4 MG/DL (0.55-1.30) H Estimat Glomerular Filtration Rate 50.4 mL/min (>60) Glucose Level 131 MG/DL (74-106) H Calcium Level 8.8 MG/DL (8.5-10.1) Total Bilirubin 0.5 MG/DL (0.2-1.0) Aspartate Amino Transf (AST/SGOT) 13 U/L (15-37) L Alanine Aminotransferase (ALT/SGPT) 28 U/L (12-78) Alkaline Phosphatase 81 U/L (46-116) Total Creatine Kinase 73 U/L (26-308) Creatine Kinase MB < 0.5 NG/ML (0.0-3.6) Creatine Kinase MB Relative Index Troponin I 0.000 ng/mL (0.000-0.056) Pro-B-Type Natriuretic Peptide 72 pg/mL (0-125) Total Protein 7.2 G/DL (6.4-8.2) Albumin 3.4 G/DL (3.4-5.0) Globulin 3.8 g/dL Albumin/Globulin Ratio 0.9 (1.0-2.7) L Lipase 200 U/L (73-393) Urine Opiates Screen Negative (NEGATIVE) Urine Barbiturates Screen Negative (NEGATIVE) Phencyclidine (PCP) Screen Negative (NEGATIVE) Urine Amphetamines Screen Negative (NEGATIVE) Urine Benzodiazepines Screen Negative (NEGATIVE) Urine Cocaine Screen Negative (NEGATIVE) Urine Marijuana (THC) Screen Negative (NEGATIVE) DIANNE RAY August 04, 2017 14:48
[2017-08-04 16:00] VITALS: BP 115/72
--- NOTE | 2017-08-04 16:20 | Cardiology Report ---
APPROVED REPORT EXAM: Two-dimensional and M-mode echocardiogram with Doppler and color Doppler. INDICATION Left ventricular function M-Mode DIMENSIONS IVSd1.0 (0.7-1.1cm)Left Atrium (MM)5.2 (1.6-4.0cm) LVDd4.6 (3.5-5.6cm)Aortic Root3.2 (2.0-3.7cm) PWd1.0 (0.7-1.1cm)Aortic Cusp Exc.1.9 (1.5-2.0cm) LVDs3.5 (2.5-4.0cm) PWs1.2 cm Normal left ventricular chamber size, systolic function and wall motio excpe mild hypo of the distal vs and distal inferior wall , in direct comparison to study on 04/2016 the wall motion appears unchanged Left ventricular ejection fraction estimated to be 55-60%. Mild left ventricular hypertrophy. Small posterior pericardial effusion. All other cardiac chamber sizes are within normal limits. Focal aortic valve sclerosis with adequate cusp excursion. Thickened mitral valve leaflets with normal excursion. Mild mitral annulus and aortic root calcification. Pulmonic valve not well visualized. Normal tricuspid valve structure. IVC is not obtainable. A color flow and spectral Doppler study was performed and revealed: No aortic regurgitation. No mitral regurgitation. Mitral diastolic velocities suggest reduced left ventricular relaxation c/w diastolic dysfunction grade 1. Trace tricuspid regurgitation. Tricuspid systolic velocities suggests peak right ventricular systolic pressure of 16mmHg
[2017-08-04 20:00] VITALS: BP 104/66
[2017-08-04] MEDS: Atorvastatin 20mg tab ORAL SCH (20:22)
[2017-08-04] MEDS: Tamsulosin 0.4mg cap ORAL SCH (20:22)
[2017-08-04] MEDS ORDERED: Heparin 5000 units/ml inj SUBQ SCH (21:00)
--- NOTE | 2017-08-04 22:45 | Consultation ---
DATE OF CONSULTATION: 08/04/2017 CARDIAC CONSULTATION CONSULTING PHYSICIAN: Bhavin Vinson M.D. REFERRING PHYSICIAN: Kellie Orellana M.D. REASON FOR REFERRAL: Chest pain. HISTORY OF PRESENT ILLNESS: The patient is a 66-year-old gentleman, who is known to me from prior evaluations and hospitalization here at [facility], presented to the hospital because of sharp needle sensation in the center of his chest since 7 o'clock this morning. The pain seemed to get worse when he takes a deep breath, but does not get worse when he walks. There is no shortness of breath. There is no PND. There is no orthopnea. No dizziness on standing. No heart pounding or palpitations. PAST MEDICAL HISTORY: Positive for recent hospitalization here at [facility] back on 07/03/2017 and at that time, diagnoses were made of hematuria, bladder mass, old CVA, hypertension, anemia, and urinary tract infection. Prior to that, I had seen him back in April of 2016 and at that time, he had atypical chest pain. He does have a history of old coronary bypass grafting, which was performed BEAR to LAD, saphenous vein graft to diagonal, saphenous vein graft to posterior descending artery, and left radius to obtuse marginal in April of 2015; history of hypertension; hyperlipidemia; history of hemorrhagic stroke in 2014 with resultant left-sided droop and left upper extremity weakness, status post craniotomy, apparently this occurred in [place]; history of benign prostatic hypertrophy and hypertensive urgency; hyperlipidemia; headaches; and post pericardiotomy syndrome. MEDICATIONS: His medication list unfortunately, he is not aware of. During the last hospitalization, however, he was on 10 mg of Norvasc and 20 mg of lisinopril and 25 mg of Toprol-XL, 40 mg of Protonix, and 0.4 mg of Flomax. ALLERGIES: None. SOCIAL HISTORY: Smokes 4 cigarettes a day. He says no alcohol. No drugs. REVIEW OF SYSTEMS: GASTROINTESTINAL: He denies. GENITOURINARY: He denies. PULMONARY: He denies. CONSTITUTIONAL: He denies. NEUROLOGIC: He denies. PHYSICAL EXAMINATION: GENERAL: Shows to be middle-aged gentleman, in no respiratory distress, in fact, when he came into the room. On arrival from the emergency room, he was walking around in his room, did not appear to be in any kind of distress or pain whatsoever. NECK: Supple. No jugular venous distention noted. LUNGS: Clear to auscultation and percussion. CARDIAC: S1 is normal. S2 is normal. Regular rate and rhythm. No heaves, thrills, or gallops noted. ABDOMEN: Soft and nontender. Positive bowel sounds. Chest wall is nontender to palpation. EXTREMITIES: There is no edema, clubbing, or cyanosis. NEUROLOGIC: He is awake, alert, and responsive. LABORATORY AND DIAGNOSTIC DATA: White count of 9.3, hemoglobin 14.1, and platelet count 178,000. Sodium is 141, potassium 3.9, chloride 108, bicarbonate 23, BUN of 24, creatinine 1.4, and a glucose of 131. His troponin 0.00 and his lipase is 200. His most recent TSH was 1.447 on 06/29/2017 and a PSA of 0.72 at that time. Total cholesterol at that time was 201, LDL of 138, and a HDL of 42. ASSESSMENT AND PLAN: 1. Atypical chest pain. 2. Coronary artery disease, status post coronary artery bypass grafting in 2014. 3. Bladder tumor. 4. Hematuria. 5. Hypertension. 6. Tobacco use disorder. PLAN: This patient was seen in cardiac consultation. The patient was counseled against tobacco use. The blood pressure medication will be continued. Aspirin will continue. Statins will be started, and the patient will be followed. Cardiac enzymes will be repeated. An echocardiogram will also be ordered as workup for his chest pain. Unless the cardiac enzymes are abnormal secondary to wall motion abnormalities that are new noted on the EKG, I doubt that he will require further ischemia workup. I will follow the patient along with you. Bhavin Vinson M.D. DR: GILBERTO JOB#: [id number] CC:
[2017-08-05] VITALS: BP 115/68
[2017-08-05 04:00] VITALS: BP 132/74
--- NOTE | 2017-08-05 05:30 | Consultation ---
DATE OF CONSULTATION: 08/04/2017 NOTE: "POOR AUDIO" HEMATOLOGY/ONCOLOGY CONSULTATION CONSULTING PHYSICIAN: Bernard Salinas M.D. REQUESTING PHYSICIAN: Kellie Orellana M.D. REASON FOR CONSULTATION: Evaluation of bladder mass. IDENTIFICATION DATA: Dear Dr. Orellana, The patient is a pleasant 66-year-old male, who I have seen in the past with past medical history, which is significant for history of hypertension, prior history of ACS, as well as edema, history of stroke, hemiparesis, and paralysis, at this time presents to the hospital with midsternal chest pain. He also has a past medical history significant for bladder mass, 3.4 cm mass. He describes the pain as sharp. Denies any nausea or vomiting. Denies any shortness of breath. No pleurisy. Denies any recent travel. Denies any positional changes with chest pain. Describes it as 5/10 with heaviness, feeling like a sharp object and Hematology Service was consulted given ongoing history of bladder mass. PAST MEDICAL HISTORY: As noted above. PAST SURGICAL HISTORY: None noted besides above remarks. ALLERGIES: No known drug allergies. FAMILY HISTORY: Noncontributory. SOCIAL HISTORY: No alcohol, tobacco, or illicit drug use. REVIEW OF SYSTEMS: CONSTITUTIONAL: No fevers, chills, or night sweats. SKIN: No rashes, bumps, or itching. HEENT: No headache, hearing or vision changes. BREASTS: No lumps, pain, or discharge. PULMONARY: No cough, sputum, or shortness of breath. CARDIOVASCULAR: Some chest pain noted. Regular rate and rhythm. GENITOURINARY: No dysuria, frequency, or urgency. MUSCULOSKELETAL: No joint swelling, muscle pain, or trauma. PHYSICAL EXAMINATION: VITAL SIGNS: Reviewed. Blood pressure of 115/72, respiratory rate 12, O2 saturation 99% on room air, heart rate 66, and temperature 97.8 degrees Fahrenheit. GENERAL: No acute distress. PULMONARY: Decreased breath sounds. CARDIOVASCULAR: Regular rate. No S3 or S4 reported. ABDOMEN: Soft, nontender, and nondistended. EXTREMITIES: A 1+ edema. LABORATORY DATA: WBC currently 9.3, hemoglobin 14.1, hematocrit 41, and platelet count 178,000. IMAGING: Most recent chest x-ray shows sternotomy noted, bones are osteopenic, lungs are clear and within normal limits. ASSESSMENT AND RECOMMENDATIONS: 1. Bladder mass, 3.4 cm. Most recent CAT scan has been reviewed, again worrisome for neoplasm in the setting of hematuria. The patient has seen Dr. Vides and to follow up in outpatient setting with cystoscopy. Once his urine clears, outpatient cystoscopy recommended by Dr. Vides. Hemoglobin currently stable, does not appear to be emergent at this time. Closely monitor. 2. Anemia due to history of hematuria, currently improved. If downtrends, consider . 3. Leukocytosis, secondary to reactive process. 4. Urinary tract infection, has received antibiotics broad spectrum. 5. Chest pain, rule out acute coronary syndrome. 6. Acute kidney injury, creatinine worsened. I appreciate the consultation. Bernard Salinas M.D. DR: Marlin JOB#: [id number] CC:
[2017-08-05 07:44] VITALS: BP 130/81
[2017-08-05] MEDS ORDERED: Lisinopril 20mg tab ORAL SCH (09:00)
[2017-08-05] MEDS ORDERED: Metoprolol Succinate XL 25mg tab ORAL SCH (09:00)
[2017-08-05] MEDS ORDERED: Aspirin Baby 81mg ORAL SCH (09:00)
[2017-08-05 10:42] LABS: BASOPHILS % (AUTO) 1.5 % (0.0-2.0); EOSINOPHILS % (AUTO) 1.7 % (0.0-3.0); HEMATOCRIT 39.8 % (42.0-52.0); HEMOGLOBIN 13.5 G/DL (14.2-18.0); LYMPHOCYTES % (AUTO) 21.8 % (20.0-45.0); MEAN CORPUSCULAR VOLUME 94 FL (80-99); MONOCYTES % (AUTO) 7.1 % (1.0-10.0); PLATELET COUNT 159 K/UL (150-450); RED BLOOD COUNT 4.24 M/UL (4.70-6.10); RED CELL DISTRIBUTION WIDTH 11.1 % (11.6-14.8); WHITE BLOOD COUNT 7.7 K/UL (4.8-10.8)
[2017-08-05 10:59] LABS: INR 0.9 (0.9-1.1)
[2017-08-05 11:17] LABS: CHOLESTEROL 222 MG/DL (< 200); HDL CHOLESTEROL 33 MG/DL (40-60); TRIGLYCERIDES 459 MG/DL (30-150)
[2017-08-05 12:00] VITALS: BP 130/75
--- NOTE | 2017-08-05 12:01 | Pulmonology Progress Note ---
Assessment/Plan Problems: (1) ACS (acute coronary syndrome) (2) Hematuria (3) CVA, old, hemiparesis (4) Bladder mass (5) History of hypertension Assessment/Plan continues to have hematuria cardiology and oncology notes reviewed and appreciated Urology consult pending check h/h f/u troponin check echo dvt propylaxis with SCD Subjective ROS Limited/Unobtainable: No Constitutional: Reports: no symptoms HEENT: Repors: no symptoms Respiratory: Reports: no symptoms Allergies: Coded Allergies: No Known Allergies (Unverified , 11/27/14) Objective Last 24 Hour Vital Signs Date Time Temp Pulse Resp B/P (MAP) Pulse Ox O2 Delivery O2 Flow Rate FiO2 08/05/17 08:03 88 130/81 08/05/17 08:03 130/81 08/05/17 08:03 88 130/81 08/05/17 07:51 77 08/05/17 07:45 80 18 Room Air 21 08/05/17 07:44 97.5 88 18 130/81 95 Room Air 97.5 08/05/17 04:00 98.3 53 18 132/74 95 Room Air 98.3 08/05/17 04:00 63 08/05/17 00:00 97.6 59 18 115/68 95 Room Air 97.6 08/05/17 00:00 64 08/04/17 20:00 67 08/04/17 20:00 98.4 59 20 104/66 95 Room Air 98.4 08/04/17 17:05 60 18 Room Air 21 08/04/17 16:07 69 08/04/17 16:00 97.8 66 18 115/72 99 Room Air 97.8 66 08/04/17 14:15 98.3 70 19 118/74 95 Room Air 98.4 08/04/17 13:50 97.6 59 20 110/73 98 Room Air 97.6 59 08/04/17 13:13 98.4 78 17 104/67 99 Room Air 98.4 Intake and Output 08/04/17 08/05/17 19:00 07:00 Intake Total 480 ml Output Total 10 ml Balance 480 ml -10 ml Intake Oral 480 ml Output Urine Total 10 ml # Voids 1 General Appearance: WD/WN HEENT: normocephalic, atraumatic Respiratory/Chest: chest wall non-tender, lungs clear Cardiovascular: normal peripheral pulses, normal rate Abdomen: normal bowel sounds Genitourinary: normal external genitalia Skin: no rash Laboratory Tests 08/04/17 13:45: Urine Opiates Screen Negative, Urine Barbiturates Screen Negative, Phencyclidine (PCP) Screen Negative, Urine Amphetamines Screen Negative, Urine Benzodiazepines Screen Negative, Urine Cocaine Screen Negative, Urine Marijuana (THC) Screen Negative 08/04/17 14:53: Troponin I 0.001 08/05/17 04:00: C-Reactive Protein, Quantitative < 0.4, Triglycerides Level 459H, Cholesterol Level 222H, LDL Cholesterol 158H, HDL Cholesterol 33L, Cholesterol/HDL Ratio 6.7H, Thyroid Stimulating Hormone (TSH) 1.108 08/05/17 10:00: Troponin I 0.000, White Blood Count 7.7, Red Blood Count 4.24L, Hemoglobin 13.5L , Hematocrit 39.8L, Mean Corpuscular Volume 94, Mean Corpuscular Hemoglobin 31.8H, Mean Corpuscular Hemoglobin Concent 33.8, Red Cell Distribution Width 11.1L, Platelet Count 159, Mean Platelet Volume 8.3, Neutrophils (%) (Auto) 68.0 , Lymphocytes (%) (Auto) 21.8, Monocytes (%) (Auto) 7.1, Eosinophils (%) (Auto) 1.7, Basophils (%) (Auto) 1.5 08/05/17 10:30: Prothrombin Time 9.9, Prothromb Time International Ratio 0.9, Activated Partial Thromboplast Time 27 Current Medications Medications (Trade) Dose Ordered Sig/Vladislav Route PRN Reason Start Time Stop Time Status Last Admin Dose Admin Acetaminophen (Tylenol) 650 mg Q4H PRN ORAL T>100.5 F 08/04/17 13:45 09/03/17 13:44 Albuterol/ Ipratropium (Albuterol/ Ipratropium) 3 ml Q4H PRN HHN Shortness of Breath 08/04/17 13:45 08/09/17 13:44 Amlodipine Besylate (Norvasc) 5 mg DAILY ORAL 08/05/17 09:00 09/04/17 08:59 08/05/17 08:03 Atorvastatin Calcium (Lipitor) 20 mg BEDTIME ORAL 08/04/17 21:00 09/03/17 20:59 08/04/17 20:22 Diltiazem HCl (Cardizem) 10 mg EVERY HOUR PRN IV heart rate more than 120 BPM 08/04/17 13:45 09/03/17 13:44 Enalaprilat (Vasotec) 2.5 mg Q6H PRN IV sbp more than 160mmHg 08/04/17 13:45 09/03/17 13:44 Lisinopril (Prinivil) 20 mg DAILY ORAL 08/05/17 09:00 09/04/17 08:59 08/05/17 08:03 Metoprolol Succinate (Toprol XL) 25 mg DAILY ORAL 08/05/17 09:00 09/04/17 08:59 08/05/17 08:03 Nitroglycerin (Ntg) 0.4 mg Q5MIN X 3 DOSES PRN SL Prn Chest Pain 08/04/17 13:45 09/03/17 13:44 Ondansetron HCl (Zofran) 4 mg Q6H PRN IVP Nausea & Vomiting 08/04/17 13:45 09/03/17 13:44 Polyethylene Glycol (Miralax) 17 gm DAILYPRN PRN ORAL Constipation 08/04/17 13:45 09/03/17 13:44 Tamsulosin HCl (Flomax) 0.4 mg BEDTIME ORAL 08/04/17 21:00 09/03/17 20:59 08/04/17 20:22 Temazepam (Restoril) 15 mg HSPRN PRN ORAL Insomnia 08/04/17 21:00 08/11/17 20:59 08/04/17 20:22 Kellie Orellana MD August 05, 2017 12:01
[2017-08-05 16:05] VITALS: BP 136/89
--- NOTE | 2017-08-05 16:09 | General Progress Note ---
Assessment/Plan Status: stable, progressing Assessment/Plan MDD recurrent cymbalta 30mg qam Seroquel 25mg qhs provided RO/ST Subjective Date patient seen: August 05, 2017 Neurologic/Psychiatric: Reports: anxiety, depressed, emotional problems Allergies: Coded Allergies: No Known Allergies (Unverified , 11/27/14) Objective Last 24 Hour Vital Signs Date Time Temp Pulse Resp B/P (MAP) Pulse Ox O2 Delivery O2 Flow Rate FiO2 08/05/17 15:18 60 08/05/17 12:00 97.5 61 18 130/75 95 Room Air 97.5 08/05/17 11:34 57 08/05/17 08:03 88 130/81 08/05/17 08:03 130/81 08/05/17 08:03 88 130/81 08/05/17 07:51 77 08/05/17 07:45 80 18 Room Air 21 08/05/17 07:44 97.5 88 18 130/81 95 Room Air 97.5 08/05/17 04:00 98.3 53 18 132/74 95 Room Air 98.3 08/05/17 04:00 63 08/05/17 00:00 97.6 59 18 115/68 95 Room Air 97.6 08/05/17 00:00 64 08/04/17 20:00 67 08/04/17 20:00 98.4 59 20 104/66 95 Room Air 98.4 08/04/17 17:05 60 18 Room Air 21 Intake and Output 08/04/17 08/05/17 19:00 07:00 Intake Total 480 ml Output Total 10 ml Balance 480 ml -10 ml Intake Oral 480 ml Output Urine Total 10 ml # Voids 1 Laboratory Tests 08/05/17 04:00: C-Reactive Protein, Quantitative < 0.4, Triglycerides Level 459H, Cholesterol Level 222H, LDL Cholesterol 158H, HDL Cholesterol 33L, Cholesterol/HDL Ratio 6.7H, Thyroid Stimulating Hormone (TSH) 1.108 08/05/17 10:00: White Blood Count 7.7, Red Blood Count 4.24L, Hemoglobin 13.5L, Hematocrit 39.8L , Mean Corpuscular Volume 94, Mean Corpuscular Hemoglobin 31.8H, Mean Corpuscular Hemoglobin Concent 33.8, Red Cell Distribution Width 11.1L, Platelet Count 159, Mean Platelet Volume 8.3, Neutrophils (%) (Auto) 68.0, Lymphocytes (%) (Auto) 21.8, Monocytes (%) (Auto) 7.1, Eosinophils (%) (Auto) 1.7, Basophils (%) (Auto) 1.5, Troponin I 0.000 08/05/17 10:30: Prothrombin Time 9.9, Prothromb Time International Ratio 0.9, Activated Partial Thromboplast Time 27 Height (Feet): 5 Height (Inches): 8.00 Weight (Pounds): 185 General Appearance: WD/WN, no apparent distress, alert Neurologic: oriented x 3, responsive, depressed affect Kathleen Ford M.D. August 05, 2017 16:09
--- NOTE | 2017-08-05 16:09 | Consultation ---
History of Present Illness General Date patient seen: August 04, 2017 Chief Complaint: Chest Pain Present Illness HPI 47 yo male with hx of depression and mmp admitted. the pt has been depressed and anhedonic. In addition he has anxiety and insomnia. the pt is unable to sleep at night and he has thoughts of suicide. No plan or intention. Allergies: Coded Allergies: No Known Allergies (Unverified , 11/27/14) Medication History Scheduled Amlodipine Besylate (Norvasc), 5 MG ORAL DAILY Amlodipine Besylate (Norvasc), 10 MG ORAL DAILY, (Reported) Aspirin* (Aspirin*), 81 MG ORAL DAILY, (Reported) Docusate Sodium* (Colace*), 100 MG ORAL DAILY, (Reported) Esomeprazole Magnesium (Nexium), 40 MG ORAL DAILY, (Reported) Lisinopril (Lisinopril*), 20 MG ORAL DAILY, (Reported) Metoprolol Succinate* (Metoprolol Succinate*), 25 MG ORAL DAILY, (Reported) No Known Medications* (NKM - No Known Medications*), 0 ., (Reported) Pantoprazole* (Pantoprazole*), 40 MG ORAL DAILY, (Reported) Rosuvastatin Calcium* (Crestor*), 20 MG ORAL DAILY, (Reported) Tamsulosin Hcl (Tamsulosin Hcl*), 0.4 MG ORAL BEDTIME, (Reported) Scheduled PRN Hydrocodone Bit/Acetaminophen 5-325* ([place] 5-325*), 1 TAB ORAL Q6H PRN for For Pain Miscellaneous Medications Isosorbide Dinitrate (Isosorbide Dinitrate*), 10 MG ORAL, (Reported) Unable to Obtain Medications (Unable To Obtain Meds), (Reported) Patient History Limited by: medical condition History Provided By: Patient, Medical Record, PMD Healthcare decision maker self Resuscitation status Full Code Advanced Directive on File Past Medical/Surgical History Past Medical/Surgical History: (1) Arthralgia (2) Arthralgia (3) Shoulder injury (4) Fall (5) Hand pain, left (6) Cerebral edema (7) Headache (8) Pain at surgical site (9) Recurrent angina status post coronary artery bypass graft (10) Costochondritis (11) GERD (gastroesophageal reflux disease) (12) ACS (acute coronary syndrome) (13) History of hypertension (14) CVA, old, hemiparesis (15) Hematuria (16) Bladder mass Review of Systems Psychiatric: Reports: prior hx, anxiety, depressed feelings, emotional problems , SI Physical Exam General Appearance: WD/WN, no apparent distress, alert Neurologic: oriented x 3, responsive, depressed affect Last 24 Hour Vital Signs Date Time Temp Pulse Resp B/P (MAP) Pulse Ox O2 Delivery O2 Flow Rate FiO2 08/05/17 15:18 60 08/05/17 12:00 97.5 61 18 130/75 95 Room Air 97.5 08/05/17 11:34 57 08/05/17 08:03 88 130/81 08/05/17 08:03 130/81 08/05/17 08:03 88 130/81 08/05/17 07:51 77 08/05/17 07:45 80 18 Room Air 21 08/05/17 07:44 97.5 88 18 130/81 95 Room Air 97.5 08/05/17 04:00 98.3 53 18 132/74 95 Room Air 98.3 08/05/17 04:00 63 08/05/17 00:00 97.6 59 18 115/68 95 Room Air 97.6 08/05/17 00:00 64 08/04/17 20:00 67 08/04/17 20:00 98.4 59 20 104/66 95 Room Air 98.4 08/04/17 17:05 60 18 Room Air 21 08/04/17 16:07 69 Intake and Output 08/04/17 08/05/17 19:00 07:00 Intake Total 480 ml Output Total 10 ml Balance 480 ml -10 ml Intake Oral 480 ml Output Urine Total 10 ml # Voids 1 Laboratory Tests Test 08/05/17 04:00 08/05/17 10:00 08/05/17 10:30 C-Reactive Protein, Quantitative < 0.4 mg/dL (0.00-0.90) Triglycerides Level 459 MG/DL (30-150) H Cholesterol Level 222 MG/DL (< 200) H LDL Cholesterol 158 mg/dL (<100) H HDL Cholesterol 33 MG/DL (40-60) L Cholesterol/HDL Ratio 6.7 (3.3-4.4) H Thyroid Stimulating Hormone (TSH) 1.108 uiU/mL (0.358-3.740) White Blood Count 7.7 K/UL (4.8-10.8) Red Blood Count 4.24 M/UL (4.70-6.10) L Hemoglobin 13.5 G/DL (14.2-18.0) L Hematocrit 39.8 % (42.0-52.0) L Mean Corpuscular Volume 94 FL (80-99) Mean Corpuscular Hemoglobin 31.8 PG (27.0-31.0) H Mean Corpuscular Hemoglobin Concent 33.8 G/DL (32.0-36.0) Red Cell Distribution Width 11.1 % (11.6-14.8) L Platelet Count 159 K/UL (150-450) Mean Platelet Volume 8.3 FL (6.5-10.1) Neutrophils (%) (Auto) 68.0 % (45.0-75.0) Lymphocytes (%) (Auto) 21.8 % (20.0-45.0) Monocytes (%) (Auto) 7.1 % (1.0-10.0) Eosinophils (%) (Auto) 1.7 % (0.0-3.0) Basophils (%) (Auto) 1.5 % (0.0-2.0) Troponin I 0.000 ng/mL (0.000-0.056) Prothrombin Time 9.9 SEC (9.30-11.50) Prothromb Time International Ratio 0.9 (0.9-1.1) Activated Partial Thromboplast Time 27 SEC (23-33) Height (Feet): 5 Height (Inches): 8.00 Weight (Pounds): 185 Medications Current Medications Medications (Trade) Dose Ordered Sig/Vladislav Route PRN Reason Start Time Stop Time Status Last Admin Dose Admin Acetaminophen (Tylenol) 650 mg Q4H PRN ORAL T>100.5 F 08/04/17 13:45 09/03/17 13:44 Albuterol/ Ipratropium (Albuterol/ Ipratropium) 3 ml Q4H PRN HHN Shortness of Breath 08/04/17 13:45 08/09/17 13:44 Amlodipine Besylate (Norvasc) 5 mg DAILY ORAL 08/05/17 09:00 09/04/17 08:59 08/05/17 08:03 Atorvastatin Calcium (Lipitor) 20 mg BEDTIME ORAL 08/04/17 21:00 09/03/17 20:59 08/04/17 20:22 Diltiazem HCl (Cardizem) 10 mg EVERY HOUR PRN IV heart rate more than 120 BPM 08/04/17 13:45 09/03/17 13:44 Enalaprilat (Vasotec) 2.5 mg Q6H PRN IV sbp more than 160mmHg 08/04/17 13:45 09/03/17 13:44 Lisinopril (Prinivil) 20 mg DAILY ORAL 08/05/17 09:00 09/04/17 08:59 08/05/17 08:03 Metoprolol Succinate (Toprol XL) 25 mg DAILY ORAL 08/05/17 09:00 09/04/17 08:59 08/05/17 08:03 Nitroglycerin (Ntg) 0.4 mg Q5MIN X 3 DOSES PRN SL Prn Chest Pain 08/04/17 13:45 09/03/17 13:44 Ondansetron HCl (Zofran) 4 mg Q6H PRN IVP Nausea & Vomiting 08/04/17 13:45 09/03/17 13:44 Polyethylene Glycol (Miralax) 17 gm DAILYPRN PRN ORAL Constipation 08/04/17 13:45 09/03/17 13:44 Tamsulosin HCl (Flomax) 0.4 mg BEDTIME ORAL 08/04/17 21:00 09/03/17 20:59 08/04/17 20:22 Temazepam (Restoril) 15 mg HSPRN PRN ORAL Insomnia 08/04/17 21:00 08/11/17 20:59 08/04/17 20:22 Assessment/Plan Assessment/Plan MDD recurrent cymbalta 30mg qam Seroquel 25mg qhs provided MACY/Kathleen Reeves M.D. August 05, 2017 16:08
--- NOTE | 2017-08-05 16:20 | Cardiology Report ---
APPROVED REPORT EKG Measurement Heart [id number] NV [id number] Normal sinus rhythm with sinus arrhythmia Prolonged QT Abnormal ECG
--- NOTE | 2017-08-05 16:28 | Cardiology Report ---
APPROVED REPORT EKG Measurement Heart [id number] MD [id number] Sinus tachycardia Otherwise normal ECG
--- NOTE | 2017-08-05 19:06 | Cardiology Progress Note ---
Assessment/Plan Assessment/Plan 1. Atypical chest pain. 2. Coronary artery disease, status post coronary artery bypass grafting in 2015. 3. Bladder tumor. 4. Hematuria. 5. Hypertension. 6. Tobacco use disorder all trop neg tele neg ekg neg echo not changed dc telel no further cardiac membreno at this time ok to med surg Subjective Cardiovascular: Reports: lightheadedness; Denies: chest pain Respiratory: Denies: shortness of breath Gastrointestinal/Abdominal: Denies: abdominal pain Genitourinary: Reports: burning, hematuria Objective Last 24 Hour Vital Signs Date Time Temp Pulse Resp B/P (MAP) Pulse Ox O2 Delivery O2 Flow Rate FiO2 08/05/17 16:05 97.5 64 18 136/89 95 Room Air 97.5 08/05/17 15:18 60 08/05/17 12:00 97.5 61 18 130/75 95 Room Air 97.5 08/05/17 11:34 57 08/05/17 08:03 88 130/81 08/05/17 08:03 130/81 08/05/17 08:03 88 130/81 08/05/17 07:51 77 08/05/17 07:45 80 18 Room Air 21 08/05/17 07:44 97.5 88 18 130/81 95 Room Air 97.5 08/05/17 04:00 98.3 53 18 132/74 95 Room Air 98.3 08/05/17 04:00 63 08/05/17 00:00 97.6 59 18 115/68 95 Room Air 97.6 08/05/17 00:00 64 08/04/17 20:00 67 08/04/17 20:00 98.4 59 20 104/66 95 Room Air 98.4 General Appearance: alert Neck: supple Cardiovascular: normal rate, regular rhythm Respiratory/Chest: lungs clear Abdomen: normal bowel sounds, non tender, soft Extremities: no swelling Intake and Output 08/04/17 08/05/17 19:00 07:00 Intake Total 480 ml Output Total 10 ml Balance 480 ml -10 ml Intake Oral 480 ml Output Urine Total 10 ml # Voids 1 Laboratory Tests Test 08/05/17 04:00 08/05/17 10:00 08/05/17 10:30 C-Reactive Protein, Quantitative < 0.4 mg/dL (0.00-0.90) Triglycerides Level 459 MG/DL (30-150) H Cholesterol Level 222 MG/DL (< 200) H LDL Cholesterol 158 mg/dL (<100) H HDL Cholesterol 33 MG/DL (40-60) L Cholesterol/HDL Ratio 6.7 (3.3-4.4) H Thyroid Stimulating Hormone (TSH) 1.108 uiU/mL (0.358-3.740) White Blood Count 7.7 K/UL (4.8-10.8) Red Blood Count 4.24 M/UL (4.70-6.10) L Hemoglobin 13.5 G/DL (14.2-18.0) L Hematocrit 39.8 % (42.0-52.0) L Mean Corpuscular Volume 94 FL (80-99) Mean Corpuscular Hemoglobin 31.8 PG (27.0-31.0) H Mean Corpuscular Hemoglobin Concent 33.8 G/DL (32.0-36.0) Red Cell Distribution Width 11.1 % (11.6-14.8) L Platelet Count 159 K/UL (150-450) Mean Platelet Volume 8.3 FL (6.5-10.1) Neutrophils (%) (Auto) 68.0 % (45.0-75.0) Lymphocytes (%) (Auto) 21.8 % (20.0-45.0) Monocytes (%) (Auto) 7.1 % (1.0-10.0) Eosinophils (%) (Auto) 1.7 % (0.0-3.0) Basophils (%) (Auto) 1.5 % (0.0-2.0) Troponin I 0.000 ng/mL (0.000-0.056) Prothrombin Time 9.9 SEC (9.30-11.50) Prothromb Time International Ratio 0.9 (0.9-1.1) Activated Partial Thromboplast Time 27 SEC (23-33) DIANNE RAY August 05, 2017 19:06
[2017-08-05 20:37] VITALS: BP 151/95
[2017-08-05] MEDS: Tamsulosin 0.4mg cap ORAL SCH (20:45)
[2017-08-05] MEDS: Atorvastatin 20mg tab ORAL SCH (20:45)
[2017-08-05] MEDS ORDERED: Nitroglycerin Subl 0.4mg tab SL PRN (21:15)
[2017-08-05] MEDS ORDERED: Albuterol/Ipratropium 3ml neb HHN PRN (21:45)
[2017-08-05] MEDS ORDERED: dilTIAZem HCl 25mg/5ml Inj IV PRN (22:00)
[2017-08-06] VITALS: BP 134/76
--- NOTE | 2017-08-06 00:24 | General Progress Note ---
Assessment/Plan Assessment/Plan ASSESSMENT AND RECOMMENDATIONS: 1. Bladder mass, 3.4 cm. Most recent CAT scan has been reviewed, again worrisome for neoplasm in the setting of hematuria. --> The patient has seen Dr. Vides and to follow up in outpatient setting with cystoscopy. --> Once his urine clears, outpatient cystoscopy recommended by Dr. Vides. --> Hemoglobin currently stable, does not appear to be emergent at this time. --> Closely monitor. 2. Anemia due to history of hematuria, currently improved. --> Monitor closely and transfuse if needed. H/H stable. 3. Leukocytosis, secondary to reactive process. 4. Urinary tract infection, has received antibiotics broad spectrum. 5. Chest pain, rule out acute coronary syndrome. 6. Acute kidney injury, creatinine worsened. 7. Acute coronary syndrome. Subjective Date patient seen: August 05, 2017 Constitutional: Denies: no symptoms, chills, diaphoresis, fever, malaise, weakness, other HEENT: Denies: no symptoms, eye pain, blurred vision, tearing, double vision, ear pain, ear discharge, nose pain, nose congestion, throat pain, throat swelling, mouth pain, mouth swelling, other Cardiovascular: Denies: no symptoms, chest pain, edema, irregular heart rate, lightheadedness, palpitations, syncope, other Respiratory: Denies: no symptoms, cough, orthopnea, shortness of breath, SOB with excertion, SOB at rest, sputum, stridor, wheezing, other Gastrointestinal/Abdominal: Denies: no symptoms, abdomen distended, abdominal pain, black stools, tarry stools, blood in stool, constipated, diarrhea, difficulty swallowing, nausea, poor appetite, poor fluid intake, rectal bleeding , vomiting, other Genitourinary: Denies: no symptoms, burning, discharge, frequency, flank pain, hematuria, incontinence, pain, urgency, other Neurologic/Psychiatric: Denies: no symptoms, anxiety, depressed, emotional problems, headache, numbness, paresthesia, pre-existing deficit, seizure, tingling, tremors, weakness, other Hematologic/Lymphatic: Reports: anemia Allergies: Coded Allergies: No Known Allergies (Unverified , 11/27/14) Subjective H/H stable. No fever or chills. Hematuria. Objective Last 24 Hour Vital Signs Date Time Temp Pulse Resp B/P (MAP) Pulse Ox O2 Delivery O2 Flow Rate FiO2 08/06/17 00:00 98.2 70 18 134/76 96 98.2 08/05/17 20:37 98.4 72 18 151/95 94 98.4 08/05/17 19:30 70 18 Room Air 21 08/05/17 16:05 97.5 64 18 136/89 95 Room Air 97.5 08/05/17 15:18 60 08/05/17 12:00 97.5 61 18 130/75 95 Room Air 97.5 08/05/17 11:34 57 08/05/17 08:03 88 130/81 08/05/17 08:03 130/81 08/05/17 08:03 88 130/81 08/05/17 07:51 77 08/05/17 07:45 80 18 Room Air 21 08/05/17 07:44 97.5 88 18 130/81 95 Room Air 97.5 08/05/17 04:00 98.3 53 18 132/74 95 Room Air 98.3 08/05/17 04:00 63 Intake and Output 08/05/17 08/06/17 19:00 07:00 Intake Total 860 ml Balance 860 ml Intake Oral 860 ml Laboratory Tests 08/05/17 04:00: C-Reactive Protein, Quantitative < 0.4, Triglycerides Level 459H, Cholesterol Level 222H, LDL Cholesterol 158H, HDL Cholesterol 33L, Cholesterol/HDL Ratio 6.7H, Thyroid Stimulating Hormone (TSH) 1.108 08/05/17 10:00: White Blood Count 7.7, Red Blood Count 4.24L, Hemoglobin 13.5L, Hematocrit 39.8L , Mean Corpuscular Volume 94, Mean Corpuscular Hemoglobin 31.8H, Mean Corpuscular Hemoglobin Concent 33.8, Red Cell Distribution Width 11.1L, Platelet Count 159, Mean Platelet Volume 8.3, Neutrophils (%) (Auto) 68.0, Lymphocytes (%) (Auto) 21.8, Monocytes (%) (Auto) 7.1, Eosinophils (%) (Auto) 1.7, Basophils (%) (Auto) 1.5, Troponin I 0.000 08/05/17 10:30: Prothrombin Time 9.9, Prothromb Time International Ratio 0.9, Activated Partial Thromboplast Time 27 Height (Feet): 5 Height (Inches): 8.00 Weight (Pounds): 185 General Appearance: WD/WN EENT: normal ENT inspection Cardiovascular: normal rate, regular rhythm Respiratory/Chest: lungs clear, normal breath sounds Abdomen: normal bowel sounds, non tender Bernard Salinas MD August 06, 2017 00:24
--- NOTE | 2017-08-06 01:15 | Consultation ---
DATE OF CONSULTATION: 08/05/2017 REASON FOR CONSULTATION: Hematuria and history of bladder cancer. HISTORY OF PRESENT ILLNESS: This is a 66-year-old male with history of coronary artery disease, CVA, and bladder mass. He was previously admitted to the hospital and was seen by Dr. Nirav Vides and is scheduled to see Dr. Vides as an outpatient for evaluation of bladder mass. He was readmitted on this admission with history of hematuria. CT of the abdomen previously showed bladder mass and he was advised to be treated by Dr. Vides. MEDICATIONS: Reviewed. ALLERGIES: No known allergies. REVIEW OF SYSTEMS: Essentially negative except slight suprapubic discomfort and hematuria. He is on tamsulosin. PHYSICAL EXAMINATION: VITAL SIGNS: Afebrile. Vital signs stable. LUNGS: Clear. CARDIOVASCULAR: Regular rate and rhythm. ABDOMEN: Slightly distended. No CVA tenderness. GENITOURINARY: Bladder appears empty on palpation. LABORATORY AND DIAGNOSTIC DATA: Hematocrit is 41.3 and white count 9.3. Creatinine is 1.4. CT was reviewed suspicious mass in the bladder. ASSESSMENT AND PLAN: The patient is voiding spontaneously and has intervention. He is followed by Dr. Vides as an outpatient for bladder cancer treatment. Ryan Purcell M.D. DR: CARMEL JOB#: [id number] CC:
[2017-08-06] MEDS ORDERED: Enalaprilat 2.5mg/2ml Inj IV PRN (01:45)
[2017-08-06 04:00] VITALS: BP 128/71
[2017-08-06 08:00] VITALS: BP 134/90
[2017-08-06 08:03] LABS: BASOPHILS % (AUTO) 0.7 % (0.0-2.0); EOSINOPHILS % (AUTO) 1.7 % (0.0-3.0); HEMATOCRIT 39.1 % (42.0-52.0); HEMOGLOBIN 13.1 G/DL (14.2-18.0); MEAN CORPUSCULAR VOLUME 94 FL (80-99); MONOCYTES % (AUTO) 7.8 % (1.0-10.0); NEUTROPHILS % (AUTO) 67.8 % (45.0-75.0); PLATELET COUNT 158 K/UL (150-450); RED BLOOD COUNT 4.17 M/UL (4.70-6.10); RED CELL DISTRIBUTION WIDTH 11.6 % (11.6-14.8); WHITE BLOOD COUNT 8.7 K/UL (4.8-10.8)
[2017-08-06 08:20] LABS: ALANINE AMINOTRANSFERASE 25 U/L (12-78); ALBUMIN 3.2 G/DL (3.4-5.0); ALBUMIN/GLOBULIN RATIO 0.9 (1.0-2.7); ALKALINE PHOSPHATASE 73 U/L (46-116); ANION GAP 8 mmol/L (5-15); ASPARTATE AMINO TRANSFERASE 14 U/L (15-37); BILIRUBIN,TOTAL 0.5 MG/DL (0.2-1.0); BLOOD UREA NITROGEN 19 mg/dL (7-18); CALCIUM 8.4 MG/DL (8.5-10.1); CARBON DIOXIDE 26 MMOL/L (21-32); CHLORIDE 110 MMOL/L (98-107); CREATININE 1.1 MG/DL (0.55-1.30); PHOSPHORUS 3.5 MG/DL (2.5-4.9); POTASSIUM 3.6 MMOL/L (3.5-5.1); SODIUM 144 MMOL/L (136-145)
[2017-08-06] MEDS ORDERED: DULoxetine 30mg cap ORAL SCH (09:00)
[2017-08-06] MEDS: DULoxetine 30mg cap ORAL SCH (09:30)
[2017-08-06] MEDS: Lisinopril 20mg tab ORAL SCH (09:31)
[2017-08-06] MEDS: Metoprolol Succinate XL 25mg tab ORAL SCH (09:31)
--- NOTE | 2017-08-06 11:54 | General Progress Note ---
Assessment/Plan Status: stable Assessment/Plan MDD recurrent cymbalta 30mg qam Seroquel 25mg qhs provided RO/ST Subjective Date patient seen: August 06, 2017 Neurologic/Psychiatric: Reports: anxiety, depressed, emotional problems Allergies: Coded Allergies: No Known Allergies (Unverified , 11/27/14) Objective Last 24 Hour Vital Signs Date Time Temp Pulse Resp B/P (MAP) Pulse Ox O2 Delivery O2 Flow Rate FiO2 08/06/17 09:31 65 134/90 08/06/17 09:31 134/90 08/06/17 09:31 65 134/90 08/06/17 08:00 98.0 65 20 134/90 96 98.0 65 08/06/17 04:00 98.1 69 18 128/71 96 98.1 08/06/17 00:00 98.2 70 18 134/76 96 98.2 08/05/17 20:37 98.4 72 18 151/95 94 98.4 08/05/17 19:30 70 18 Room Air 21 08/05/17 16:05 97.5 64 18 136/89 95 Room Air 97.5 08/05/17 15:18 60 08/05/17 12:00 97.5 61 18 130/75 95 Room Air 97.5 Intake and Output 08/05/17 08/06/17 19:00 07:00 Intake Total 860 ml Balance 860 ml Intake Oral 860 ml Laboratory Tests 08/06/17 05:40: White Blood Count 8.7, Red Blood Count 4.17L, Hemoglobin 13.1L, Hematocrit 39.1L , Mean Corpuscular Volume 94, Mean Corpuscular Hemoglobin 31.3H, Mean Corpuscular Hemoglobin Concent 33.4, Red Cell Distribution Width 11.6, Platelet Count 158, Mean Platelet Volume 8.9, Neutrophils (%) (Auto) 67.8, Lymphocytes (% ) (Auto) 22.0, Monocytes (%) (Auto) 7.8, Eosinophils (%) (Auto) 1.7, Basophils ( %) (Auto) 0.7, Erythrocyte Sedimentation Rate 27H, Sodium Level 144, Potassium Level 3.6, Chloride Level 110H, Carbon Dioxide Level 26, Anion Gap 8, Blood Urea Nitrogen 19H, Creatinine 1.1, Estimat Glomerular Filtration Rate > 60, Glucose Level 90, Calcium Level 8.4L, Phosphorus Level 3.5, Magnesium Level 2.2 , Total Bilirubin 0.5, Aspartate Amino Transf (AST/SGOT) 14L, Alanine Aminotransferase (ALT/SGPT) 25, Alkaline Phosphatase 73, Troponin I 0.000, Total Protein 6.7, Albumin 3.2L, Globulin 3.5, Albumin/Globulin Ratio 0.9L Height (Feet): 5 Height (Inches): 8.00 Weight (Pounds): 185 General Appearance: WD/WN, no apparent distress, alert Neurologic: oriented x 3, responsive, depressed affect Kathleen Ford M.D. August 06, 2017 11:54
[2017-08-06 12:00] VITALS: BP 145/89
[2017-08-06] MEDS ORDERED: Miralax 17gm pkt ORAL PRN (13:45)
--- NOTE | 2017-08-06 14:46 | Pulmonology Progress Note ---
Assessment/Plan Problems: (1) ACS (acute coronary syndrome) (2) Hematuria (3) CVA, old, hemiparesis (4) Bladder mass (5) History of hypertension Assessment/Plan hematuria resolfved cardiology and oncology notes reviewed and appreciated Urology consult appreciated check h/h f/u troponin check echo dvt propylaxis with SCD Subjective ROS Limited/Unobtainable: No Constitutional: Reports: no symptoms HEENT: Repors: no symptoms Allergies: Coded Allergies: No Known Allergies (Unverified , 11/27/14) Objective Last 24 Hour Vital Signs Date Time Temp Pulse Resp B/P (MAP) Pulse Ox O2 Delivery O2 Flow Rate FiO2 08/06/17 12:00 98.1 70 20 145/89 97 98.1 70 08/06/17 09:31 65 134/90 08/06/17 09:31 134/90 08/06/17 09:31 65 134/90 08/06/17 08:00 98.0 65 20 134/90 96 98.0 65 08/06/17 04:00 98.1 69 18 128/71 96 98.1 08/06/17 00:00 98.2 70 18 134/76 96 98.2 08/05/17 20:37 98.4 72 18 151/95 94 98.4 08/05/17 19:30 70 18 Room Air 21 08/05/17 16:05 97.5 64 18 136/89 95 Room Air 97.5 08/05/17 15:18 60 Intake and Output 08/05/17 08/06/17 19:00 07:00 Intake Total 860 ml Balance 860 ml Intake Oral 860 ml General Appearance: WD/WN HEENT: normocephalic Respiratory/Chest: chest wall non-tender, lungs clear Cardiovascular: normal peripheral pulses, normal rate Abdomen: normal bowel sounds, soft, non tender Genitourinary: normal external genitalia Extremities: no cyanosis Neurologic/Psychiatric: sound tester II-XII grossly normal, no motor/sensory deficits Laboratory Tests 08/06/17 05:40: White Blood Count 8.7, Red Blood Count 4.17L, Hemoglobin 13.1L, Hematocrit 39.1L , Mean Corpuscular Volume 94, Mean Corpuscular Hemoglobin 31.3H, Mean Corpuscular Hemoglobin Concent 33.4, Red Cell Distribution Width 11.6, Platelet Count 158, Mean Platelet Volume 8.9, Neutrophils (%) (Auto) 67.8, Lymphocytes (% ) (Auto) 22.0, Monocytes (%) (Auto) 7.8, Eosinophils (%) (Auto) 1.7, Basophils ( %) (Auto) 0.7, Erythrocyte Sedimentation Rate 27H, Sodium Level 144, Potassium Level 3.6, Chloride Level 110H, Carbon Dioxide Level 26, Anion Gap 8, Blood Urea Nitrogen 19H, Creatinine 1.1, Estimat Glomerular Filtration Rate > 60, Glucose Level 90, Calcium Level 8.4L, Phosphorus Level 3.5, Magnesium Level 2.2 , Total Bilirubin 0.5, Aspartate Amino Transf (AST/SGOT) 14L, Alanine Aminotransferase (ALT/SGPT) 25, Alkaline Phosphatase 73, Troponin I 0.000, Total Protein 6.7, Albumin 3.2L, Globulin 3.5, Albumin/Globulin Ratio 0.9L 08/06/17 13:33: Troponin I 0.000 Current Medications Medications (Trade) Dose Ordered Sig/Vladislav Route PRN Reason Start Time Stop Time Status Last Admin Dose Admin Acetaminophen (Tylenol) 650 mg Q4H PRN ORAL T>100.5 F 08/05/17 21:45 09/03/17 13:44 Albuterol/ Ipratropium (Albuterol/ Ipratropium) 3 ml Q4H PRN HHN Shortness of Breath 08/05/17 21:45 08/09/17 13:44 Amlodipine Besylate (Norvasc) 5 mg DAILY ORAL 08/06/17 09:00 09/04/17 08:59 08/06/17 09:31 Atorvastatin Calcium (Lipitor) 20 mg BEDTIME ORAL 08/06/17 21:00 09/03/17 20:59 Diltiazem HCl (Cardizem) 10 mg EVERY HOUR PRN IV heart rate more than 120 BPM 08/05/17 22:00 09/03/17 13:44 Duloxetine HCl (Cymbalta) 30 mg DAILY ORAL 08/06/17 09:00 09/05/17 08:59 08/06/17 09:30 Enalaprilat (Vasotec) 2.5 mg Q6H PRN IV sbp more than 160mmHg 08/06/17 01:45 09/03/17 13:44 Lisinopril (Prinivil) 20 mg DAILY ORAL 08/06/17 09:00 09/04/17 08:59 08/06/17 09:31 Metoprolol Succinate (Toprol XL) 25 mg DAILY ORAL 08/06/17 09:00 09/04/17 08:59 08/06/17 09:31 Nitroglycerin (Ntg) 0.4 mg Q5MIN X 3 DOSES PRN SL Prn Chest Pain 08/05/17 21:15 09/03/17 13:44 Ondansetron HCl (Zofran) 4 mg Q6H PRN IVP Nausea & Vomiting 08/06/17 01:45 09/03/17 13:44 Polyethylene Glycol (Miralax) 17 gm DAILYPRN PRN ORAL Constipation 08/06/17 13:45 09/03/17 13:44 Quetiapine Fumarate (SEROquel) 25 mg BEDTIME ORAL 08/06/17 21:00 09/04/17 20:59 Tamsulosin HCl (Flomax) 0.4 mg BEDTIME ORAL 08/06/17 21:00 09/03/17 20:59 Temazepam (Restoril) 15 mg HSPRN PRN ORAL Insomnia 08/06/17 21:00 08/11/17 20:59 Kellie Orellana MD August 06, 2017 14:46
[2017-08-06 16:00] VITALS: BP 140/87
--- NOTE | 2017-08-06 19:07 | Cardiology Progress Note ---
Assessment/Plan Assessment/Plan 1. Atypical chest pain. 2. Coronary artery disease, status post coronary artery bypass grafting in 2015. 3. Bladder tumor. 4. Hematuria. 5. Hypertension. 6. Tobacco use disorder all trop neg tele neg ekg neg echo not changed on med surg no further cardiac membreno at this time vitasl are fine dc plans per dr hobbs Subjective ROS Limited/Unobtainable: Yes Subjective sleeping Objective Last 24 Hour Vital Signs Date Time Temp Pulse Resp B/P (MAP) Pulse Ox O2 Delivery O2 Flow Rate FiO2 08/06/17 16:00 97.0 70 20 140/87 98 97.0 70 08/06/17 12:00 98.1 70 20 145/89 97 98.1 70 08/06/17 09:31 65 134/90 08/06/17 09:31 134/90 08/06/17 09:31 65 134/90 08/06/17 08:00 98.0 65 20 134/90 96 98.0 65 08/06/17 04:00 98.1 69 18 128/71 96 98.1 08/06/17 00:00 98.2 70 18 134/76 96 98.2 08/05/17 20:37 98.4 72 18 151/95 94 98.4 08/05/17 19:30 70 18 Room Air 21 General Appearance: no apparent distress Intake and Output 08/05/17 08/06/17 19:00 07:00 Intake Total 860 ml Balance 860 ml Intake Oral 860 ml Laboratory Tests Test 08/06/17 05:40 08/06/17 13:33 White Blood Count 8.7 K/UL (4.8-10.8) Red Blood Count 4.17 M/UL (4.70-6.10) L Hemoglobin 13.1 G/DL (14.2-18.0) L Hematocrit 39.1 % (42.0-52.0) L Mean Corpuscular Volume 94 FL (80-99) Mean Corpuscular Hemoglobin 31.3 PG (27.0-31.0) H Mean Corpuscular Hemoglobin Concent 33.4 G/DL (32.0-36.0) Red Cell Distribution Width 11.6 % (11.6-14.8) Platelet Count 158 K/UL (150-450) Mean Platelet Volume 8.9 FL (6.5-10.1) Neutrophils (%) (Auto) 67.8 % (45.0-75.0) Lymphocytes (%) (Auto) 22.0 % (20.0-45.0) Monocytes (%) (Auto) 7.8 % (1.0-10.0) Eosinophils (%) (Auto) 1.7 % (0.0-3.0) Basophils (%) (Auto) 0.7 % (0.0-2.0) Erythrocyte Sedimentation Rate 27 MM/HR (0-20) H Sodium Level 144 MMOL/L (136-145) Potassium Level 3.6 MMOL/L (3.5-5.1) Chloride Level 110 MMOL/L (98-107) H Carbon Dioxide Level 26 MMOL/L (21-32) Anion Gap 8 mmol/L (5-15) Blood Urea Nitrogen 19 mg/dL (7-18) H Creatinine 1.1 MG/DL (0.55-1.30) Estimat Glomerular Filtration Rate > 60 mL/min (>60) Glucose Level 90 MG/DL (74-106) Calcium Level 8.4 MG/DL (8.5-10.1) L Phosphorus Level 3.5 MG/DL (2.5-4.9) Magnesium Level 2.2 MG/DL (1.8-2.4) Total Bilirubin 0.5 MG/DL (0.2-1.0) Aspartate Amino Transf (AST/SGOT) 14 U/L (15-37) L Alanine Aminotransferase (ALT/SGPT) 25 U/L (12-78) Alkaline Phosphatase 73 U/L (46-116) Troponin I 0.000 ng/mL (0.000-0.056) 0.000 ng/mL (0.000-0.056) Total Protein 6.7 G/DL (6.4-8.2) Albumin 3.2 G/DL (3.4-5.0) L Globulin 3.5 g/dL Albumin/Globulin Ratio 0.9 (1.0-2.7) L Bhavin Vinson MD August 06, 2017 19:07
[2017-08-06 20:10] VITALS: BP 139/80
[2017-08-06] MEDS ORDERED: Atorvastatin 20mg tab ORAL SCH (21:00)
[2017-08-06] MEDS: Atorvastatin 20mg tab ORAL SCH (22:52)
[2017-08-06] MEDS: Tamsulosin 0.4mg cap ORAL SCH (22:52)
--- NOTE | 2017-08-06 23:36 | General Progress Note ---
Assessment/Plan Assessment/Plan ASSESSMENT AND RECOMMENDATIONS: 1. Bladder mass, 3.4 cm. Most recent CAT scan has been reviewed, again worrisome for neoplasm in the setting of hematuria. --> The patient has seen Dr. Vides and to follow up in outpatient setting with cystoscopy. --> Once his urine clears, outpatient cystoscopy recommended by Dr. Vides. --> Hemoglobin currently stable, does not appear to be emergent at this time. --> Closely monitor. 2. Anemia due to history of hematuria. --> Monitor closely and transfuse if needed. H/H currently stable. --> Hematuria resolved at this time. 3. Leukocytosis, secondary to reactive process. --> resolved 4. Urinary tract infection, has received antibiotics broad spectrum. 5. Chest pain, rule out acute coronary syndrome. 6. Acute kidney injury, creatinine worsened. 7. Acute coronary syndrome. Subjective Date patient seen: August 06, 2017 Constitutional: Denies: no symptoms, chills, diaphoresis, fever, malaise, weakness, other HEENT: Denies: no symptoms, eye pain, blurred vision, tearing, double vision, ear pain, ear discharge, nose pain, nose congestion, throat pain, throat swelling, mouth pain, mouth swelling, other Cardiovascular: Denies: no symptoms, chest pain, edema, irregular heart rate, lightheadedness, palpitations, syncope, other Respiratory: Denies: no symptoms, cough, orthopnea, shortness of breath, SOB with excertion, SOB at rest, sputum, stridor, wheezing, other Gastrointestinal/Abdominal: Denies: no symptoms, abdomen distended, abdominal pain, black stools, tarry stools, blood in stool, constipated, diarrhea, difficulty swallowing, nausea, poor appetite, poor fluid intake, rectal bleeding , vomiting, other Genitourinary: Denies: no symptoms, burning, discharge, frequency, flank pain, hematuria, incontinence, pain, urgency, other Neurologic/Psychiatric: Denies: no symptoms, anxiety, depressed, emotional problems, headache, numbness, paresthesia, pre-existing deficit, seizure, tingling, tremors, weakness, other Hematologic/Lymphatic: Reports: anemia Allergies: Coded Allergies: No Known Allergies (Unverified , 11/27/14) Subjective H/H stable. No acute events. Hematuria resolved. Objective Last 24 Hour Vital Signs Date Time Temp Pulse Resp B/P (MAP) Pulse Ox O2 Delivery O2 Flow Rate FiO2 08/06/17 21:50 86 18 Room Air 21 08/06/17 20:10 96.8 63 20 139/80 96 Room Air 96.8 20 08/06/17 16:00 97.0 70 20 140/87 98 97.0 70 08/06/17 12:00 98.1 70 20 145/89 97 98.1 70 08/06/17 09:31 65 134/90 08/06/17 09:31 134/90 08/06/17 09:31 65 134/90 08/06/17 08:00 98.0 65 20 134/90 96 98.0 65 08/06/17 04:00 98.1 69 18 128/71 96 98.1 08/06/17 00:00 98.2 70 18 134/76 96 98.2 Intake and Output 08/05/17 08/06/17 19:00 07:00 Intake Total 860 ml Balance 860 ml Intake Oral 860 ml Laboratory Tests 08/06/17 05:40: White Blood Count 8.7, Red Blood Count 4.17L, Hemoglobin 13.1L, Hematocrit 39.1L , Mean Corpuscular Volume 94, Mean Corpuscular Hemoglobin 31.3H, Mean Corpuscular Hemoglobin Concent 33.4, Red Cell Distribution Width 11.6, Platelet Count 158, Mean Platelet Volume 8.9, Neutrophils (%) (Auto) 67.8, Lymphocytes (% ) (Auto) 22.0, Monocytes (%) (Auto) 7.8, Eosinophils (%) (Auto) 1.7, Basophils ( %) (Auto) 0.7, Erythrocyte Sedimentation Rate 27H, Sodium Level 144, Potassium Level 3.6, Chloride Level 110H, Carbon Dioxide Level 26, Anion Gap 8, Blood Urea Nitrogen 19H, Creatinine 1.1, Estimat Glomerular Filtration Rate > 60, Glucose Level 90, Calcium Level 8.4L, Phosphorus Level 3.5, Magnesium Level 2.2 , Total Bilirubin 0.5, Aspartate Amino Transf (AST/SGOT) 14L, Alanine Aminotransferase (ALT/SGPT) 25, Alkaline Phosphatase 73, Troponin I 0.000, Total Protein 6.7, Albumin 3.2L, Globulin 3.5, Albumin/Globulin Ratio 0.9L 5/10/18 13:33: Troponin I 0.000 Height (Feet): 5 Height (Inches): 8.00 Weight (Pounds): 185 General Appearance: no apparent distress Cardiovascular: normal rate, regular rhythm Respiratory/Chest: lungs clear, normal breath sounds Abdomen: normal bowel sounds, non tender Bernard Salinas MD August 06, 2017 23:36
[2017-08-07 00:19] VITALS: BP 123/55
[2017-08-07] MEDS: Lisinopril 20mg tab ORAL SCH (08:09)
[2017-08-07] MEDS: Metoprolol Succinate XL 25mg tab ORAL SCH (08:09)
[2017-08-07] MEDS: DULoxetine 30mg cap ORAL SCH (08:10)
[2017-08-07 08:30] VITALS: BP 108/59
[2017-08-07 11:55] VITALS: BP 123/74
--- NOTE | 2017-08-07 13:00 | General Progress Note ---
Assessment/Plan Status: stable, progressing Assessment/Plan MDD recurrent cymbalta 30mg qam Seroquel 25mg qhs provided RO/ST Subjective Date patient seen: August 07, 2017 Neurologic/Psychiatric: Reports: anxiety, depressed, emotional problems Allergies: Coded Allergies: No Known Allergies (Unverified , 11/27/14) Subjective the pt is less depressed sleeping better Objective Last 24 Hour Vital Signs Date Time Temp Pulse Resp B/P (MAP) Pulse Ox O2 Delivery O2 Flow Rate FiO2 08/07/17 11:55 97.6 64 20 123/74 97 97.6 08/07/17 08:30 98.0 53 20 108/59 97 98.0 08/07/17 08:09 53 108/59 08/07/17 08:09 108/59 08/07/17 08:08 53 108/59 08/07/17 00:19 97.7 56 20 123/55 96 Room Air 97.7 56 08/06/17 21:50 86 18 Room Air 21 08/06/17 20:10 96.8 63 20 139/80 96 Room Air 96.8 20 08/06/17 16:00 97.0 70 20 140/87 98 97.0 70 Laboratory Tests 08/06/17 13:33: Troponin I 0.000 Height (Feet): 5 Height (Inches): 8.00 Weight (Pounds): 185 General Appearance: no apparent distress, alert Neurologic: oriented x 3, responsive, depressed affect Kathleen Ford M.D. August 07, 2017 13:00
--- NOTE | 2017-08-07 15:36 | Pulmonology Progress Note ---
Assessment/Plan Problems: (1) ACS (acute coronary syndrome) (2) Hematuria (3) CVA, old, hemiparesis (4) Bladder mass (5) History of hypertension Assessment/Plan no new complains cardiology and oncology notes reviewed and appreciated Urology consult appreciated check h/h f/u troponin check echo dvt propylaxis with SCD dc planning in progress Subjective ROS Limited/Unobtainable: No Allergies: Coded Allergies: No Known Allergies (Unverified , 11/27/14) Objective Last 24 Hour Vital Signs Date Time Temp Pulse Resp B/P (MAP) Pulse Ox O2 Delivery O2 Flow Rate FiO2 08/07/17 11:55 97.6 64 20 123/74 97 97.6 08/07/17 08:30 98.0 53 20 108/59 97 98.0 08/07/17 08:09 53 108/59 08/07/17 08:09 108/59 08/07/17 08:08 53 108/59 08/07/17 00:19 97.7 56 20 123/55 96 Room Air 97.7 56 08/06/17 21:50 86 18 Room Air 21 08/06/17 20:10 96.8 63 20 139/80 96 Room Air 96.8 20 08/06/17 16:00 97.0 70 20 140/87 98 97.0 70 General Appearance: WD/WN HEENT: normocephalic Respiratory/Chest: chest wall non-tender, lungs clear Cardiovascular: normal peripheral pulses, normal rate Abdomen: normal bowel sounds Current Medications Medications (Trade) Dose Ordered Sig/Vladislav Route PRN Reason Start Time Stop Time Status Last Admin Dose Admin Acetaminophen (Tylenol) 650 mg Q4H PRN ORAL T>100.5 F 08/05/17 21:45 09/03/17 13:44 Albuterol/ Ipratropium (Albuterol/ Ipratropium) 3 ml Q4H PRN HHN Shortness of Breath 08/05/17 21:45 08/09/17 13:44 Amlodipine Besylate (Norvasc) 5 mg DAILY ORAL 08/06/17 09:00 09/04/17 08:59 08/06/17 09:31 Atorvastatin Calcium (Lipitor) 40 mg BEDTIME ORAL 08/06/17 21:00 09/05/17 20:59 08/06/17 22:52 Diltiazem HCl (Cardizem) 10 mg EVERY HOUR PRN IV heart rate more than 120 BPM 08/05/17 22:00 09/03/17 13:44 Duloxetine HCl (Cymbalta) 30 mg DAILY ORAL 08/06/17 09:00 09/05/17 08:59 08/07/17 08:10 Enalaprilat (Vasotec) 2.5 mg Q6H PRN IV sbp more than 160mmHg 08/06/17 01:45 09/03/17 13:44 Lisinopril (Prinivil) 20 mg DAILY ORAL 08/06/17 09:00 09/04/17 08:59 08/06/17 09:31 Metoprolol Succinate (Toprol XL) 25 mg DAILY ORAL 08/06/17 09:00 09/04/17 08:59 08/06/17 09:31 Nitroglycerin (Ntg) 0.4 mg Q5MIN X 3 DOSES PRN SL Prn Chest Pain 08/05/17 21:15 09/03/17 13:44 Ondansetron HCl (Zofran) 4 mg Q6H PRN IVP Nausea & Vomiting 08/06/17 01:45 09/03/17 13:44 Polyethylene Glycol (Miralax) 17 gm DAILYPRN PRN ORAL Constipation 08/06/17 13:45 09/03/17 13:44 Quetiapine Fumarate (SEROquel) 25 mg BEDTIME ORAL 08/06/17 21:00 09/04/17 20:59 08/06/17 22:55 Tamsulosin HCl (Flomax) 0.4 mg BEDTIME ORAL 08/06/17 21:00 09/03/17 20:59 08/06/17 22:52 Temazepam (Restoril) 15 mg HSPRN PRN ORAL Insomnia 08/06/17 21:00 08/11/17 20:59 08/06/17 22:52 Kellie Orellana MD August 07, 2017 15:36
[2017-08-07 16:01] VITALS: BP 158/91
[2017-08-07 20:00] VITALS: BP 143/80
[2017-08-07] MEDS: Tamsulosin 0.4mg cap ORAL SCH (20:53)
[2017-08-07] MEDS: Atorvastatin 20mg tab ORAL SCH (20:54)
--- NOTE | 2017-08-07 23:52 | General Progress Note ---
Assessment/Plan Assessment/Plan ASSESSMENT AND RECOMMENDATIONS: 1. Bladder mass, 3.4 cm. Most recent CAT scan has been reviewed, again worrisome for neoplasm in the setting of hematuria. --> The patient has seen Dr. Vides and to follow up in outpatient setting with cystoscopy. --> Once his urine clears, outpatient cystoscopy recommended by Dr. Vides. --> Hemoglobin currently stable, does not appear to be emergent at this time. --> Closely monitor. 2. Anemia due to history of hematuria. --> Monitor closely and transfuse if needed. H/H currently stable. --> Hematuria resolved at this time. 3. Leukocytosis, secondary to reactive process. --> resolved 4. Urinary tract infection, has received antibiotics broad spectrum. Improved. 5. Chest pain, rule out acute coronary syndrome. 6. Acute kidney injury, creatinine worsened. 7. Acute coronary syndrome. DC planning. Subjective Date patient seen: August 07, 2017 Constitutional: Denies: no symptoms, chills, diaphoresis, fever, malaise, weakness, other HEENT: Denies: no symptoms, eye pain, blurred vision, tearing, double vision, ear pain, ear discharge, nose pain, nose congestion, throat pain, throat swelling, mouth pain, mouth swelling, other Cardiovascular: Denies: no symptoms, chest pain, edema, irregular heart rate, lightheadedness, palpitations, syncope, other Respiratory: Denies: no symptoms, cough, orthopnea, shortness of breath, SOB with excertion, SOB at rest, sputum, stridor, wheezing, other Gastrointestinal/Abdominal: Denies: no symptoms, abdomen distended, abdominal pain, black stools, tarry stools, blood in stool, constipated, diarrhea, difficulty swallowing, nausea, poor appetite, poor fluid intake, rectal bleeding , vomiting, other Genitourinary: Denies: no symptoms, burning, discharge, frequency, flank pain, hematuria, incontinence, pain, urgency, other Neurologic/Psychiatric: Denies: no symptoms, anxiety, depressed, emotional problems, headache, numbness, paresthesia, pre-existing deficit, seizure, tingling, tremors, weakness, other Hematologic/Lymphatic: Reports: anemia Allergies: Coded Allergies: No Known Allergies (Unverified , 11/27/14) Subjective No acute events overnight. Afebrile. Objective Last 24 Hour Vital Signs Date Time Temp Pulse Resp B/P (MAP) Pulse Ox O2 Delivery O2 Flow Rate FiO2 08/07/17 20:20 82 18 Room Air 21 08/07/17 20:00 97.3 61 19 143/80 97 97.3 08/07/17 16:01 97.7 62 20 158/91 97 97.7 08/07/17 11:55 97.6 64 20 123/74 97 97.6 08/07/17 08:30 98.0 53 20 108/59 97 98.0 08/07/17 08:09 53 108/59 08/07/17 08:09 108/59 08/07/17 08:08 53 108/59 08/07/17 00:19 97.7 56 20 123/55 96 Room Air 97.7 56 Height (Feet): 5 Height (Inches): 8.00 Weight (Pounds): 185 General Appearance: no apparent distress EENT: normal ENT inspection Cardiovascular: normal rate, regular rhythm Respiratory/Chest: lungs clear Abdomen: non tender Bernard Salinas MD August 07, 2017 23:52
[2017-08-08 00:14] VITALS: BP 140/83
[2017-08-08 04:00] VITALS: BP 146/81
[2017-08-08] MEDS ORDERED: dilTIAZem HCl 25mg/5ml Inj IV PRN (07:30)
[2017-08-08] MEDS ORDERED: Enalaprilat 2.5mg/2ml Inj IV PRN (07:45)
[2017-08-08 08:09] VITALS: BP 149/88
[2017-08-08] MEDS: DULoxetine 30mg cap ORAL SCH (09:04)
[2017-08-08] MEDS: Metoprolol Succinate XL 25mg tab ORAL SCH (09:04)
[2017-08-08] MEDS: Lisinopril 20mg tab ORAL SCH (09:04)
[2017-08-08] MEDS ORDERED: Nitroglycerin Subl 0.4mg tab SL PRN (11:15)
[2017-08-08] MEDS ORDERED: Miralax 17gm pkt ORAL PRN (11:15)
[2017-08-08] MEDS ORDERED: Albuterol/Ipratropium 3ml neb HHN PRN (11:15)
[2017-08-08 11:42] VITALS: BP 125/86
[2017-08-08 15:31] VITALS: BP 132/85
[2017-08-08 20:06] VITALS: BP 129/75
[2017-08-08] MEDS: Atorvastatin 20mg tab ORAL SCH (20:19)
[2017-08-08] MEDS: Tamsulosin 0.4mg cap ORAL SCH (20:19)
--- NOTE | 2017-08-08 22:13 | Pulmonology Progress Note ---
Assessment/Plan Problems: (1) ACS (acute coronary syndrome) (2) Hematuria (3) CVA, old, hemiparesis (4) Bladder mass (5) History of hypertension Assessment/Plan no new complains doing better Urology consult appreciated check h/h f/u troponin check echo dvt propylaxis with SCD dc planning in progress Subjective ROS Limited/Unobtainable: No Constitutional: Reports: no symptoms HEENT: Repors: no symptoms Respiratory: Reports: no symptoms Allergies: Coded Allergies: No Known Allergies (Unverified , 11/27/14) Objective Last 24 Hour Vital Signs Date Time Temp Pulse Resp B/P (MAP) Pulse Ox O2 Delivery O2 Flow Rate FiO2 08/08/17 20:15 67 18 Room Air 21 08/08/17 20:06 96.7 54 16 129/75 95 96.7 08/08/17 15:31 98.4 80 20 132/85 98.4 08/08/17 11:42 98.2 75 20 125/86 98 98.2 08/08/17 09:04 84 149/88 08/08/17 09:04 149/88 08/08/17 09:04 84 149/88 08/08/17 08:09 98.0 84 20 149/88 98 98.0 84 08/08/17 08:08 86 18 Room Air 21 08/08/17 04:00 97.4 67 20 146/81 94 97.4 08/08/17 02:48 99.0 08/08/17 00:14 99.0 65 22 140/83 97 99.0 Intake and Output 08/07/17 08/08/17 19:00 07:00 Intake Total 480 ml 250 ml Balance 480 ml 250 ml Intake Oral 480 ml 250 ml # Voids 1 General Appearance: WD/WN Respiratory/Chest: chest wall non-tender, lungs clear Cardiovascular: normal peripheral pulses, normal rate Abdomen: normal bowel sounds, non distended Genitourinary: normal external genitalia Skin: no ulcers Neurologic/Psychiatric: card table attendant II-XII grossly normal Current Medications Medications (Trade) Dose Ordered Sig/Vladislav Route PRN Reason Start Time Stop Time Status Last Admin Dose Admin Acetaminophen (Tylenol) 650 mg Q4H PRN ORAL T>100.5 F 08/08/17 11:15 09/07/17 11:14 Albuterol/ Ipratropium (Albuterol/ Ipratropium) 3 ml Q4H PRN HHN Shortness of Breath 08/08/17 11:15 08/13/17 11:14 Amlodipine Besylate (Norvasc) 5 mg DAILY ORAL 08/09/17 09:00 09/08/17 08:59 Atorvastatin Calcium (Lipitor) 40 mg BEDTIME ORAL 08/08/17 21:00 09/07/17 20:59 08/08/17 20:19 Duloxetine HCl (Cymbalta) 30 mg DAILY ORAL 08/09/17 09:00 09/08/17 08:59 Enalaprilat (Vasotec) 2.5 mg Q6H PRN IV sbp more than 160mmHg 08/08/17 07:45 09/03/17 13:44 Lisinopril (Prinivil) 20 mg DAILY ORAL 08/09/17 09:00 09/08/17 08:59 Metoprolol Succinate (Toprol XL) 25 mg DAILY ORAL 08/09/17 09:00 09/08/17 08:59 Nitroglycerin (Ntg) 0.4 mg Q5MIN X 3 DOSES PRN SL Prn Chest Pain 08/08/17 11:15 09/07/17 11:14 Ondansetron HCl (Zofran) 4 mg Q6H PRN IVP Nausea & Vomiting 08/08/17 11:15 09/07/17 11:14 Polyethylene Glycol (Miralax) 17 gm DAILYPRN PRN ORAL Constipation 08/08/17 11:15 09/07/17 11:14 Quetiapine Fumarate (SEROquel) 25 mg BEDTIME ORAL 08/08/17 21:00 09/07/17 20:59 08/08/17 20:19 Tamsulosin HCl (Flomax) 0.4 mg BEDTIME ORAL 08/08/17 21:00 09/07/17 20:59 08/08/17 20:19 Temazepam (Restoril) 15 mg HSPRN PRN ORAL Insomnia 08/08/17 21:00 08/15/17 20:59 Kellie Orellana MD August 08, 2017 22:13
[2017-08-09] VITALS: BP 110/73
[2017-08-09 04:39] VITALS: BP 112/17
--- NOTE | 2017-08-09 05:49 | General Progress Note ---
Assessment/Plan Assessment/Plan ASSESSMENT AND RECOMMENDATIONS: 1. Bladder mass, 3.4 cm. Most recent CAT scan has been reviewed, again worrisome for neoplasm in the setting of hematuria. --> The patient has seen Dr. Vides and to follow up in outpatient setting with cystoscopy. --> Once his urine clears, outpatient cystoscopy recommended by Dr. Vides. --> Hemoglobin currently stable, does not appear to be emergent at this time. --> Closely monitor. 2. Anemia due to history of hematuria. --> Monitor closely and transfuse if needed. H/H currently stable. --> Hematuria resolved at this time. 3. Leukocytosis, secondary to reactive process. --> resolved, and monitor 4. Urinary tract infection, has received antibiotics broad spectrum. Improved. 5. Chest pain, rule out acute coronary syndrome. 6. Acute kidney injury, creatinine worsened. 7. Acute coronary syndrome. DC planning. Subjective Date patient seen: August 08, 2017 Constitutional: Denies: no symptoms, chills, diaphoresis, fever, malaise, weakness, other HEENT: Denies: no symptoms, eye pain, blurred vision, tearing, double vision, ear pain, ear discharge, nose pain, nose congestion, throat pain, throat swelling, mouth pain, mouth swelling, other Cardiovascular: Denies: no symptoms, chest pain, edema, irregular heart rate, lightheadedness, palpitations, syncope, other Respiratory: Denies: no symptoms, cough, orthopnea, shortness of breath, SOB with excertion, SOB at rest, sputum, stridor, wheezing, other Gastrointestinal/Abdominal: Denies: no symptoms, abdomen distended, abdominal pain, black stools, tarry stools, blood in stool, constipated, diarrhea, difficulty swallowing, nausea, poor appetite, poor fluid intake, rectal bleeding , vomiting, other Genitourinary: Denies: no symptoms, burning, discharge, frequency, flank pain, hematuria, incontinence, pain, urgency, other Neurologic/Psychiatric: Denies: no symptoms, anxiety, depressed, emotional problems, headache, numbness, paresthesia, pre-existing deficit, seizure, tingling, tremors, weakness, other Endocrine: Denies: no symptoms, excessive sweating, flushing, intolerance to cold, intolerance to heat, increased hunger, increased thirst, increased urine, unexplained weight gain, unexplained weight loss, other Hematologic/Lymphatic: Denies: no symptoms, anemia, easy bleeding, easy bruising, other Allergies: Coded Allergies: No Known Allergies (Unverified , 11/27/14) Subjective No acute events overnight. Afebrile. no iv access noted Objective Last 24 Hour Vital Signs Date Time Temp Pulse Resp B/P (MAP) Pulse Ox O2 Delivery O2 Flow Rate FiO2 08/09/17 04:43 Room Air 08/09/17 04:39 97.5 55 17 112/17 96 97.5 08/09/17 00:38 Room Air 08/09/17 00:00 97.0 58 16 110/73 96 97.0 08/08/17 20:30 Room Air 08/08/17 20:15 67 18 Room Air 21 08/08/17 20:06 96.7 54 16 129/75 95 96.7 08/08/17 15:31 98.4 80 20 132/85 98.4 08/08/17 11:42 98.2 75 20 125/86 98 98.2 08/08/17 09:04 84 149/88 08/08/17 09:04 149/88 08/08/17 09:04 84 149/88 08/08/17 08:09 98.0 84 20 149/88 98 98.0 84 08/08/17 08:08 86 18 Room Air 21 Intake and Output 08/08/17 08/09/17 19:00 07:00 Intake Total 720 ml Balance 720 ml Intake Oral 720 ml # Voids 3 Height (Feet): 5 Height (Inches): 8.00 Weight (Pounds): 185 General Appearance: alert EENT: normal ENT inspection Neck: supple Cardiovascular: normal rate Respiratory/Chest: chest wall non-tender Abdomen: non tender Extremities: non-tender Edema: no edema noted Leg (L), no edema noted Leg (R) Edema: mild edema Neurologic: alert Skin: warm/dry Bernard Salinas MD August 09, 2017 05:49
[2017-08-09 08:00] VITALS: BP 103/72
[2017-08-09] MEDS: DULoxetine 30mg cap ORAL SCH (09:01)
[2017-08-09] MEDS: Metoprolol Succinate XL 25mg tab ORAL SCH (09:01)
[2017-08-09] MEDS: Lisinopril 20mg tab ORAL SCH (09:01)
[2017-08-09] MEDS ORDERED: ACETAMINOPHEN325 M1 ORAL (09:54)
[2017-08-09] MEDS ORDERED: LIPITOR80 MG ORAL (09:55)
[2017-08-09] MEDS ORDERED: RESTORIL15 MG ORAL (09:58)
[2017-08-09] MEDS ORDERED: QUETIAPINE FUMA25 MG ORAL (09:59)
[2017-08-09] MEDS ORDERED: ZOFRAN ODT8 MG ORAL (10:00)
[2017-08-09] MEDS ORDERED: CYMBALTA30 MG ORAL (10:01)
[2017-08-09] MEDS ORDERED: nitroglycerin ORAL (10:03)
[2017-08-09] MEDS ORDERED: DUONEB 0.5-3(2.53 ML HHN (10:03)
[2017-08-09] MEDS ORDERED: ENALAPRIL1.25 MG/ML IV ×2 (10:05→10:07)
--- NOTE | 2017-08-09 11:27 | General Progress Note ---
Assessment/Plan Assessment/Plan COVERING FOR DR YOUNG (1) ACS (acute coronary syndrome) (2) Hematuria (3) CVA, old, hemiparesis (4) Bladder mass (5) History of hypertension Assessment/Plan no new complains cardiology and oncology notes reviewed and appreciated Urology consult appreciated check h/h f/u troponin check echo dvt propylaxis with SCD dc planning in progress Subjective Allergies: Coded Allergies: No Known Allergies (Unverified , 11/27/14) Objective Last 24 Hour Vital Signs Date Time Temp Pulse Resp B/P (MAP) Pulse Ox O2 Delivery O2 Flow Rate FiO2 08/09/17 09:01 72 103/72 08/09/17 09:01 103/72 08/09/17 09:01 72 103/72 08/09/17 08:00 97.9 72 20 103/72 99 97.9 08/09/17 07:38 81 16 Room Air 21 08/09/17 04:43 Room Air 08/09/17 04:39 97.5 55 17 112/17 96 97.5 08/09/17 00:38 Room Air 08/09/17 00:00 97.0 58 16 110/73 96 97.0 08/08/17 20:30 Room Air 08/08/17 20:15 67 18 Room Air 21 08/08/17 20:06 96.7 54 16 129/75 95 96.7 08/08/17 15:31 98.4 80 20 132/85 98.4 08/08/17 11:42 98.2 75 20 125/86 98 98.2 Intake and Output 08/08/17 08/09/17 19:00 07:00 Intake Total 720 ml Balance 720 ml Intake Oral 720 ml # Voids 3 2 Height (Feet): 5 Height (Inches): 8.00 Weight (Pounds): 185 Objective General Appearance: no apparent distress EENT: normal ENT inspection Cardiovascular: normal rate, regular rhythm Respiratory/Chest: lungs clear Abdomen: non tender Bin Gomez MD August 09, 2017 11:27
[2017-08-09 12:00] VITALS: BP 124/80
--- NOTE | 2017-08-09 14:01 | General Progress Note ---
Assessment/Plan Assessment/Plan 1. Bladder mass, 3.4 cm. Most recent CAT scan has been reviewed, again worrisome for neoplasm in the setting of hematuria. --> The patient has seen Dr. Vides and to follow up in outpatient setting with cystoscopy. --> Once his urine clears, outpatient cystoscopy recommended by Dr. Vides. --> Hemoglobin currently stable, does not appear to be emergent at this time. --> Closely monitor. 2. Anemia due to history of hematuria. --> Monitor closely and transfuse if needed. H/H currently stable. --> Hematuria resolved at this time. 3. Leukocytosis, secondary to reactive process. --> resolved, and monitor 4. Urinary tract infection, has received antibiotics broad spectrum. Improved. 5. Chest pain, rule out acute coronary syndrome. 6. Acute kidney injury, creatinine worsened. 7. Acute coronary syndrome. DC planning. Subjective Constitutional: Denies: no symptoms, chills, diaphoresis, fever, malaise, weakness, other HEENT: Denies: no symptoms, eye pain, blurred vision, tearing, double vision, ear pain, ear discharge, nose pain, nose congestion, throat pain, throat swelling, mouth pain, mouth swelling, other Cardiovascular: Denies: no symptoms, chest pain, edema, irregular heart rate, lightheadedness, palpitations, syncope, other Respiratory: Denies: no symptoms, cough, orthopnea, shortness of breath, SOB with excertion, SOB at rest, sputum, stridor, wheezing, other Gastrointestinal/Abdominal: Denies: no symptoms, abdomen distended, abdominal pain, black stools, tarry stools, blood in stool, constipated, diarrhea, difficulty swallowing, nausea, poor appetite, poor fluid intake, rectal bleeding , vomiting, other Genitourinary: Denies: no symptoms, burning, discharge, frequency, flank pain, hematuria, incontinence, pain, urgency, other Neurologic/Psychiatric: Denies: no symptoms, anxiety, depressed, emotional problems, headache, numbness, paresthesia, pre-existing deficit, seizure, tingling, tremors, weakness, other Endocrine: Denies: no symptoms, excessive sweating, flushing, intolerance to cold, intolerance to heat, increased hunger, increased thirst, increased urine, unexplained weight gain, unexplained weight loss, other Hematologic/Lymphatic: Denies: no symptoms, anemia, easy bleeding, easy bruising, other Allergies: Coded Allergies: No Known Allergies (Unverified , 11/27/14) Subjective No acute events overnight. Afebrile. no fevers Objective Last 24 Hour Vital Signs Date Time Temp Pulse Resp B/P (MAP) Pulse Ox O2 Delivery O2 Flow Rate FiO2 08/09/17 12:00 97.9 79 20 124/80 96 97.9 08/09/17 09:01 72 103/72 08/09/17 09:01 103/72 08/09/17 09:01 72 103/72 08/09/17 08:00 97.9 72 20 103/72 99 97.9 08/09/17 07:38 81 16 Room Air 21 08/09/17 04:43 Room Air 08/09/17 04:39 97.5 55 17 112/17 96 97.5 08/09/17 00:38 Room Air 08/09/17 00:00 97.0 58 16 110/73 96 97.0 08/08/17 20:30 Room Air 08/08/17 20:15 67 18 Room Air 21 08/08/17 20:06 96.7 54 16 129/75 95 96.7 08/08/17 15:31 98.4 80 20 132/85 98.4 Intake and Output 08/08/17 08/09/17 19:00 07:00 Intake Total 720 ml Balance 720 ml Intake Oral 720 ml # Voids 3 2 Height (Feet): 5 Height (Inches): 8.00 Weight (Pounds): 185 General Appearance: WD/WN EENT: PERRL/EOMI Neck: normal alignment Cardiovascular: normal rate Respiratory/Chest: no respiratory distress Abdomen: normal bowel sounds Extremities: normal range of motion Edema: no edema noted Leg (L), no edema noted Leg (R) Neurologic: no motor/sensory deficits Skin: warm/dry Bernard Salinas MD August 09, 2017 14:01
[2017-08-09 20:13] VITALS: BP 133/79
[2017-08-09] MEDS: Tamsulosin 0.4mg cap ORAL SCH (20:47)
[2017-08-09] MEDS: Atorvastatin 20mg tab ORAL SCH (20:47)
[2017-08-10 00:12] VITALS: BP 129/72
[2017-08-10 04:24] VITALS: BP 121/75
--- NOTE | 2017-08-10 07:29 | General Progress Note ---
Assessment/Plan Assessment/Plan #. Bladder mass, 3.4 cm. Most recent CAT scan has been reviewed, again worrisome for neoplasm in the setting of hematuria. --> The patient has urology and to follow up in outpatient setting with cystoscopy. --> Once his urine clears, outpatient cystoscopy recommended by urology, Dr. Vides --> Hemoglobin currently stable, does not appear to be emergent at this time. --> Closely monitor. #. Anemia due to history of hematuria. --> Monitor closely and transfuse if needed. H/H currently stable. --> Hematuria resolved at this time. #. Leukocytosis, secondary to reactive process. --> resolved, and monitor #. Urinary tract infection, has received antibiotics broad spectrum. Symptoms have improved. #. Chest pain, rule out acute coronary syndrome. #. Acute kidney injury, creatinine worsened. #. Acute coronary syndrome. Subjective Constitutional: Denies: no symptoms, chills, diaphoresis, fever, malaise, weakness, other HEENT: Denies: no symptoms, eye pain, blurred vision, tearing, double vision, ear pain, ear discharge, nose pain, nose congestion, throat pain, throat swelling, mouth pain, mouth swelling, other Cardiovascular: Denies: no symptoms, chest pain, edema, irregular heart rate, lightheadedness, palpitations, syncope, other Respiratory: Denies: no symptoms, cough, orthopnea, shortness of breath, SOB with excertion, SOB at rest, sputum, stridor, wheezing, other Gastrointestinal/Abdominal: Denies: no symptoms, abdomen distended, abdominal pain, black stools, tarry stools, blood in stool, constipated, diarrhea, difficulty swallowing, nausea, poor appetite, poor fluid intake, rectal bleeding , vomiting, other Genitourinary: Denies: no symptoms, burning, discharge, frequency, flank pain, hematuria, incontinence, pain, urgency, other Neurologic/Psychiatric: Denies: no symptoms, anxiety, depressed, emotional problems, headache, numbness, paresthesia, pre-existing deficit, seizure, tingling, tremors, weakness, other Endocrine: Denies: no symptoms, excessive sweating, flushing, intolerance to cold, intolerance to heat, increased hunger, increased thirst, increased urine, unexplained weight gain, unexplained weight loss, other Hematologic/Lymphatic: Denies: no symptoms, anemia, easy bleeding, easy bruising, other Allergies: Coded Allergies: No Known Allergies (Unverified , 11/27/14) Subjective No acute events overnight. Afebrile. no fevers, no bleeding of Gu Objective Last 24 Hour Vital Signs Date Time Temp Pulse Resp B/P (MAP) Pulse Ox O2 Delivery O2 Flow Rate FiO2 08/10/17 04:25 Room Air 08/10/17 04:24 97.4 60 17 121/75 98 97.4 08/10/17 00:20 Room Air 08/10/17 00:12 97.2 59 16 129/72 98 97.2 08/09/17 21:01 77 16 Room Air 21 08/09/17 20:13 97.8 56 16 133/79 96 97.8 08/09/17 20:00 Room Air 08/09/17 12:00 97.9 79 20 124/80 96 97.9 08/09/17 09:01 72 103/72 08/09/17 09:01 103/72 08/09/17 09:01 72 103/72 08/09/17 08:00 97.9 72 20 103/72 99 97.9 08/09/17 07:38 81 16 Room Air 21 Intake and Output 08/09/17 08/10/17 19:00 07:00 Intake Total 360 ml Balance 360 ml Intake Oral 360 ml # Voids 1 Height (Feet): 5 Height (Inches): 8.00 Weight (Pounds): 185 General Appearance: no apparent distress EENT: TMs normal Neck: normal alignment Cardiovascular: regular rhythm Respiratory/Chest: chest wall non-tender Abdomen: no organomegaly Extremities: normal range of motion Edema: 1+ Leg (L), 1+ Leg (R) Edema: mild edema Neurologic: oriented x 3 Skin: warm/dry Bernard Salinas MD August 10, 2017 07:29
[2017-08-10 08:00] VITALS: BP 116/77
[2017-08-10] MEDS: Metoprolol Succinate XL 25mg tab ORAL SCH (09:00)
[2017-08-10] MEDS: DULoxetine 30mg cap ORAL SCH (09:18)
[2017-08-10] MEDS: Lisinopril 20mg tab ORAL SCH (09:19)
[2017-08-10 12:00] VITALS: BP 133/83
--- NOTE | 2017-08-10 13:10 | General Progress Note ---
Assessment/Plan Status: progressing Assessment/Plan MDD recurrent cymbalta 30mg qam Seroquel 25mg qhs provided RO/ST Subjective Date patient seen: August 10, 2017 Neurologic/Psychiatric: Reports: anxiety, depressed, emotional problems Allergies: Coded Allergies: No Known Allergies (Unverified , 11/27/14) Subjective the pt is less depressed not suicidal Objective Last 24 Hour Vital Signs Date Time Temp Pulse Resp B/P (MAP) Pulse Ox O2 Delivery O2 Flow Rate FiO2 08/10/17 12:00 98.1 69 18 133/83 98 98.1 08/10/17 09:20 61 116/77 08/10/17 09:19 116/77 08/10/17 08:00 96.8 59 18 116/77 96 Room Air 96.8 08/10/17 07:58 65 16 Room Air 21 08/10/17 04:25 Room Air 08/10/17 04:24 97.4 60 17 121/75 98 97.4 08/10/17 00:20 Room Air 08/10/17 00:12 97.2 59 16 129/72 98 97.2 08/09/17 21:01 77 16 Room Air 21 08/09/17 20:13 97.8 56 16 133/79 96 97.8 08/09/17 20:00 Room Air Intake and Output 08/09/17 08/10/17 19:00 07:00 Intake Total 360 ml 500 ml Balance 360 ml 500 ml Intake Oral 360 ml 500 ml # Voids 1 1 Height (Feet): 5 Height (Inches): 8.00 Weight (Pounds): 185 General Appearance: WD/WN, no apparent distress, alert Neurologic: oriented x 3, responsive, depressed affect Kathleen Ford M.D. August 10, 2017 13:10
--- NOTE | 2017-08-10 15:42 | Pulmonology Progress Note ---
Assessment/Plan Problems: (1) ACS (acute coronary syndrome) (2) Hematuria (3) CVA, old, hemiparesis (4) Bladder mass (5) History of hypertension Assessment/Plan no new complains cardiology and oncology notes reviewed and appreciated Urology consult appreciated check h/h f/u troponin check echo dvt propylaxis with SCD dc planning in progress Subjective ROS Limited/Unobtainable: No Allergies: Coded Allergies: No Known Allergies (Unverified , 11/27/14) Objective Last 24 Hour Vital Signs Date Time Temp Pulse Resp B/P (MAP) Pulse Ox O2 Delivery O2 Flow Rate FiO2 08/10/17 12:00 98.1 69 18 133/83 98 98.1 08/10/17 09:20 61 116/77 08/10/17 09:19 116/77 08/10/17 08:00 96.8 59 18 116/77 96 Room Air 96.8 08/10/17 07:58 65 16 Room Air 21 08/10/17 04:25 Room Air 08/10/17 04:24 97.4 60 17 121/75 98 97.4 08/10/17 00:20 Room Air 08/10/17 00:12 97.2 59 16 129/72 98 97.2 08/09/17 21:01 77 16 Room Air 21 08/09/17 20:13 97.8 56 16 133/79 96 97.8 08/09/17 20:00 Room Air Intake and Output 08/09/17 08/10/17 19:00 07:00 Intake Total 360 ml 500 ml Balance 360 ml 500 ml Intake Oral 360 ml 500 ml # Voids 1 1 General Appearance: WD/WN HEENT: normocephalic, atraumatic Cardiovascular: normal peripheral pulses, normal rate Abdomen: normal bowel sounds, no organomegaly Extremities: no cyanosis Skin: no lesions 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 Current Medications Medications (Trade) Dose Ordered Sig/Vladislav Route PRN Reason Start Time Stop Time Status Last Admin Dose Admin Acetaminophen (Tylenol) 650 mg Q4H PRN ORAL T>100.5 F 08/08/17 11:15 09/07/17 11:14 Albuterol/ Ipratropium (Albuterol/ Ipratropium) 3 ml Q4H PRN HHN Shortness of Breath 08/08/17 11:15 08/13/17 11:14 Amlodipine Besylate (Norvasc) 5 mg DAILY ORAL 08/09/17 09:00 09/08/17 08:59 08/10/17 09:20 Atorvastatin Calcium (Lipitor) 40 mg BEDTIME ORAL 08/08/17 21:00 09/07/17 20:59 08/09/17 20:47 Duloxetine HCl (Cymbalta) 30 mg DAILY ORAL 08/09/17 09:00 09/08/17 08:59 08/10/17 09:18 Enalaprilat (Vasotec) 2.5 mg Q6H PRN IV sbp more than 160mmHg 08/08/17 07:45 09/03/17 13:44 Lisinopril (Prinivil) 20 mg DAILY ORAL 08/09/17 09:00 09/08/17 08:59 08/10/17 09:19 Metoprolol Succinate (Toprol XL) 25 mg DAILY ORAL 08/09/17 09:00 09/08/17 08:59 08/09/17 09:01 Nitroglycerin (Ntg) 0.4 mg Q5MIN X 3 DOSES PRN SL Prn Chest Pain 08/08/17 11:15 09/07/17 11:14 Ondansetron HCl (Zofran) 4 mg Q6H PRN IVP Nausea & Vomiting 08/08/17 11:15 09/07/17 11:14 Polyethylene Glycol (Miralax) 17 gm DAILYPRN PRN ORAL Constipation 08/08/17 11:15 09/07/17 11:14 Quetiapine Fumarate (SEROquel) 25 mg BEDTIME ORAL 08/08/17 21:00 09/07/17 20:59 08/09/17 20:47 Tamsulosin HCl (Flomax) 0.4 mg BEDTIME ORAL 08/08/17 21:00 09/07/17 20:59 08/09/17 20:47 Temazepam (Restoril) 15 mg HSPRN PRN ORAL Insomnia 08/08/17 21:00 08/15/17 20:59 Kellie Orellana MD August 10, 2017 15:42
[2017-08-10 16:00] VITALS: BP 119/76
[2017-08-10] MEDS: Atorvastatin 20mg tab ORAL SCH (20:05)
[2017-08-10] MEDS: Tamsulosin 0.4mg cap ORAL SCH (20:05)
[2017-08-10 20:42] VITALS: BP 136/91
[2017-08-11] VITALS: BP 104/66
[2017-08-11 04:30] VITALS: BP 98/56
[2017-08-11 05:26] VITALS: BP 122/71
[2017-08-11 08:25] VITALS: BP 118/63
--- NOTE | 2017-08-11 08:58 | General Progress Note ---
Assessment/Plan Assessment/Plan #. Bladder mass, 3.4 cm. Most recent CAT scan has been reviewed, again worrisome for neoplasm in the setting of hematuria. --> The patient has urology and to follow up in outpatient setting with cystoscopy. --> Hemoglobin currently stable, does not appear to be emergent at this time. --> Closely monitor. Outpatient uro followup #. Anemia due to history of hematuria. --> Monitor closely and transfuse if needed. H/H currently stable. --> Hematuria resolved at this time. #. Leukocytosis, secondary to reactive process. --> resolved, and monitor #. Urinary tract infection, has received antibiotics broad spectrum. Symptoms have improved. #. Chest pain, rule out acute coronary syndrome. #. Acute kidney injury, creatinine worsened. #. Acute coronary syndrome. Subjective Constitutional: Reports: no symptoms HEENT: Reports: no symptoms Cardiovascular: Reports: no symptoms Respiratory: Reports: no symptoms Gastrointestinal/Abdominal: Reports: no symptoms Genitourinary: Reports: no symptoms Neurologic/Psychiatric: Reports: no symptoms Endocrine: Reports: no symptoms Hematologic/Lymphatic: Reports: no symptoms Allergies: Coded Allergies: No Known Allergies (Unverified , 11/27/14) Subjective No acute events overnight.sleeping Objective Last 24 Hour Vital Signs Date Time Temp Pulse Resp B/P (MAP) Pulse Ox O2 Delivery O2 Flow Rate FiO2 08/11/17 08:25 98.1 70 16 118/63 95 98.1 08/11/17 05:26 55 122/71 08/11/17 04:30 99.1 55 18 98/56 96 99.1 08/11/17 00:00 98.0 58 18 104/66 94 Room Air 98.0 08/10/17 20:44 68 16 Room Air 21 08/10/17 20:42 98.1 71 18 136/91 97 Room Air 98.1 08/10/17 16:00 97.9 80 19 119/76 98 97.9 08/10/17 12:00 98.1 69 18 133/83 98 98.1 08/10/17 09:20 61 116/77 08/10/17 09:19 116/77 Intake and Output 08/10/17 08/11/17 19:00 07:00 Intake Total 680 ml Balance 680 ml Intake Oral 680 ml # Voids 2 Height (Feet): 5 Height (Inches): 8.00 Weight (Pounds): 185 General Appearance: no apparent distress EENT: normal ENT inspection Neck: supple Cardiovascular: regular rhythm Respiratory/Chest: no respiratory distress Abdomen: no mass Extremities: non-tender Edema: 1+ Arm (L), 1+ Arm (R), 1+ Leg (L), 1+ Leg (R) Neurologic: oriented x 3 Bernard Salinas MD August 11, 2017 08:58
[2017-08-11] MEDS: Lisinopril 20mg tab ORAL SCH (09:00)
[2017-08-11] MEDS: Metoprolol Succinate XL 25mg tab ORAL SCH (09:00)
[2017-08-11] MEDS: DULoxetine 30mg cap ORAL SCH (09:00)
[2017-08-11 12:40] VITALS: BP 140/79
--- NOTE | 2017-08-11 14:28 | Pulmonology Progress Note ---
Assessment/Plan Problems: (1) ACS (acute coronary syndrome) (2) Hematuria (3) CVA, old, hemiparesis (4) Bladder mass (5) History of hypertension Assessment/Plan no new complains doing better Urology consult appreciated check h/h f/u troponin check echo dvt propylaxis with SCD dc planning in progress Subjective ROS Limited/Unobtainable: No Constitutional: Reports: no symptoms HEENT: Repors: no symptoms Allergies: Coded Allergies: No Known Allergies (Unverified , 11/27/14) Objective Last 24 Hour Vital Signs Date Time Temp Pulse Resp B/P (MAP) Pulse Ox O2 Delivery O2 Flow Rate FiO2 08/11/17 12:40 98.1 73 18 140/79 95 98.1 08/11/17 09:00 70 118/63 08/11/17 09:00 118/63 08/11/17 09:00 70 118/63 08/11/17 08:25 98.1 70 16 118/63 95 98.1 08/11/17 07:54 70 16 Room Air 21 08/11/17 05:26 55 122/71 08/11/17 04:30 99.1 55 18 98/56 96 99.1 08/11/17 00:00 98.0 58 18 104/66 94 Room Air 98.0 08/10/17 20:44 68 16 Room Air 21 08/10/17 20:42 98.1 71 18 136/91 97 Room Air 98.1 08/10/17 16:00 97.9 80 19 119/76 98 97.9 Intake and Output 08/10/17 08/11/17 19:00 07:00 Intake Total 680 ml Balance 680 ml Intake Oral 680 ml # Voids 2 HEENT: normocephalic, atraumatic Respiratory/Chest: chest wall non-tender, lungs clear, normal breath sounds Cardiovascular: normal peripheral pulses, no JVD Abdomen: soft, non tender Genitourinary: normal external genitalia Extremities: no cyanosis 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 Current Medications Medications (Trade) Dose Ordered Sig/Vladislav Route PRN Reason Start Time Stop Time Status Last Admin Dose Admin Acetaminophen (Tylenol) 650 mg Q4H PRN ORAL T>100.5 F 08/08/17 11:15 09/07/17 11:14 Albuterol/ Ipratropium (Albuterol/ Ipratropium) 3 ml Q4H PRN HHN Shortness of Breath 08/08/17 11:15 08/13/17 11:14 Amlodipine Besylate (Norvasc) 5 mg DAILY ORAL 08/09/17 09:00 09/08/17 08:59 08/10/17 09:20 Atorvastatin Calcium (Lipitor) 40 mg BEDTIME ORAL 08/08/17 21:00 09/07/17 20:59 08/10/17 20:05 Duloxetine HCl (Cymbalta) 30 mg DAILY ORAL 08/09/17 09:00 09/08/17 08:59 08/10/17 09:18 Enalaprilat (Vasotec) 2.5 mg Q6H PRN IV sbp more than 160mmHg 08/08/17 07:45 09/03/17 13:44 Lisinopril (Prinivil) 20 mg DAILY ORAL 08/09/17 09:00 09/08/17 08:59 08/10/17 09:19 Metoprolol Succinate (Toprol XL) 25 mg DAILY ORAL 08/09/17 09:00 09/08/17 08:59 08/09/17 09:01 Nitroglycerin (Ntg) 0.4 mg Q5MIN X 3 DOSES PRN SL Prn Chest Pain 08/08/17 11:15 09/07/17 11:14 Ondansetron HCl (Zofran) 4 mg Q6H PRN IVP Nausea & Vomiting 08/08/17 11:15 09/07/17 11:14 Polyethylene Glycol (Miralax) 17 gm DAILYPRN PRN ORAL Constipation 08/08/17 11:15 09/07/17 11:14 Quetiapine Fumarate (SEROquel) 25 mg BEDTIME ORAL 08/08/17 21:00 09/07/17 20:59 08/10/17 20:05 Tamsulosin HCl (Flomax) 0.4 mg BEDTIME ORAL 08/08/17 21:00 09/07/17 20:59 08/10/17 20:05 Temazepam (Restoril) 15 mg HSPRN PRN ORAL Insomnia 08/08/17 21:00 08/15/17 20:59 Kellie Orellana MD August 11, 2017 14:28
--- NOTE | 2017-08-11 14:31 | General Progress Note ---
Assessment/Plan Assessment/Plan MDD recurrent cymbalta 30mg qam Seroquel 25mg qhs provided RO/ST Subjective Date patient seen: August 11, 2017 Neurologic/Psychiatric: Reports: anxiety, depressed, emotional problems Allergies: Coded Allergies: No Known Allergies (Unverified , 11/27/14) Subjective the pt is less depressed not suicidal Objective Last 24 Hour Vital Signs Date Time Temp Pulse Resp B/P (MAP) Pulse Ox O2 Delivery O2 Flow Rate FiO2 08/11/17 12:40 98.1 73 18 140/79 95 98.1 08/11/17 09:00 70 118/63 08/11/17 09:00 118/63 08/11/17 09:00 70 118/63 08/11/17 08:25 98.1 70 16 118/63 95 98.1 08/11/17 07:54 70 16 Room Air 21 08/11/17 05:26 55 122/71 08/11/17 04:30 99.1 55 18 98/56 96 99.1 08/11/17 00:00 98.0 58 18 104/66 94 Room Air 98.0 08/10/17 20:44 68 16 Room Air 21 08/10/17 20:42 98.1 71 18 136/91 97 Room Air 98.1 08/10/17 16:00 97.9 80 19 119/76 98 97.9 Intake and Output 08/10/17 08/11/17 19:00 07:00 Intake Total 680 ml Balance 680 ml Intake Oral 680 ml # Voids 2 Height (Feet): 5 Height (Inches): 8.00 Weight (Pounds): 185 General Appearance: no apparent distress, alert Neurologic: oriented x 3, responsive, depressed affect Kathleen Ford M.D. August 11, 2017 14:31
[2017-08-11 15:40] VITALS: BP 123/77
--- NOTE | 2017-08-13 11:11 | Discharge Summary ---
Discharge Summary Discharge Summary Discharge Summary DATE OF ADMISSION: 08/04/2017 DATE OF DISCHARGE: 08/11/2017 CONSULTANTS: Dr. Kathleen Purcell BRIEF HOSPITAL COURSE: Patient is a 66-year-old male, with history of coronary artery disease status post coronary artery bypass graft in 2014, CVA, bladder mass, history of previous hematuria presented to ED complaining of chest pain and hematuria. He was recently admitted with same symptoms, he had a CT that showed a bladder mass and was advised to have cystoscopy done as outpatient. He returned to the hospital with same symptoms. He complained of midsternal chest pain in the morning upon waking up. Pain was sharp, denied vomiting or diarrhea and denied shortness of breath or pleurisy. On evaluation at ED, troponin was negative area and EKG was in normal sinus rhythm with no acute changes. Chest x-ray with no consolidation, effusion or pneumothorax. Hemoglobin was stable. Urine toxicology was negative. Due to his risk factors, he was admitted for evaluation of acute coronary syndrome and hematuria with bladder mass. He underwent cardiac evaluation. He was counseled against tobacco use. He was given aspirin in blood pressure medications Norvasc, lisinopril and metoprolol XL were continued. Lipid panel was elevated. He was started on Lipitor. TSH was normal. Troponins were monitored and were normal. Echocardiogram done showed ejection fraction of 55-60%. Echocardiogram was basically the same compared to prior studies. He was seen by urologist. Patient was voiding spontaneously no acute intervention needed. He was advised to follow-up with urologist for outpatient cystoscopy. He has history of depression with anxiety and insomnia. Patient is anhedonic. He had major depressive disorder, recurrent. He was given Cymbalta 30 mg every morning and Seroquel 25 mg daily at bedtime. Troponin levels were negative. Vitals were stable. He was seen by social sciences instructor. He was eventually discharged to recuperative care. FINAL DIAGNOSES: Atypical chest pain Bladder mass Hematuria Old CVA Hypertension Hyperlipidemia Major depressive disorder, recurrent DISPOSITION: Patient was discharged to recuperative care. DISCHARGE MEDICATIONS: Refer to Discharge Medication List. DISCHARGE INSTRUCTIONS: Follow up with PCP in a week. I have been assigned to dictate discharge summary on this account, and I was not involved in the patient's management. Pamella Negron NP August 13, 2017 11:11
--- NOTE | 2017-08-19 11:41 | Physician Query ---
--------- THIS DOCUMENT IS A PERMANENT PART OF THE MEDICAL RECORD --------- PLEASE COMPLETE THE DOCUMENT BEFORE SIGNING Dear Date: 08/19/17 Global Recruiter/CDS' Name: TON RAY,CCS Exercise your independent professional judgment when responding to query. Questions asked do not imply particular answer is desired or expected. We greatly appreciate your clarification on this issue. BRIEF HOSPITAL COURSE: DISCHARGE SUMMARY STATES:Patient is a 66-year-old male, with history of coronary artery disease status post coronary artery bypass graft in 2015, CVA, bladder mass, history of previous hematuria presented to ED complaining of chest pain and hematuria. He was recently admitted with same symptoms, he had a CT that showed a bladder mass and was advised to have cystoscopy done as outpatient. He returned to the hospital with same symptoms. He complained of midsternal chest pain in the morning upon waking up. Pain was sharp, denied vomiting or diarrhea and denied shortness of breath or pleurisy.On evaluation at ED, troponin was negative area and EKG was in normal sinus rhythm with no acute changes. Chest x-ray with no consolidation, effusion or pneumothorax. Hemoglobin was stable. Urine toxicology was negative. Due to his risk factors, he was admitted for evaluation of acute coronary syndrome and hematuria with bladder mass. He underwent cardiac evaluation. He was counseled against tobacco use. He was given aspirin in blood pressure medications Norvasc, lisinopril and metoprolol XL were continued. Lipid panel was elevated. He was started on Lipitor. TSH was normal. Troponins were monitored and were normal. Echocardiogram done showed ejection fraction of 55-60%. Echocardiogram was basically the same compared to prior studies. FINAL DIAGNOSES: Atypical chest pain Please document the suspected etiology of Chest Pain: a.Type: []Cardiac []Non-cardiac []Unspecified b.Etiology - cardiac [] Aortic dissection []Mitral valve prolapsed [] Acute myocardial infarction []Spasm of coronary arteries [] Coronary Artery Disease []Pericarditis c.Etiology - non-cardiac [] Anxiety []Pleurisy [] Cancer []Pneumonia, type [] Costochondritis []Pneumothorax [] GERD/Esophagitis []Pulmonary embolism [] Unable to determine []Other: MALICK YOUNG M.D. DATE & TIME [facility]
== END 2017-08-11 18:22 | disposition home or self-care (01) | DRG 392 ==
LOC: EMR 12:35 → 2E 12:48 → EDBEDREQ 13:10 → 4W 08-05 21:00
DX: K21.0 Gastro-esophageal reflux disease with esophagitis (principal); I24.9 Acute ischemic heart disease, unspecified; N17.9 Acute kidney failure, unspecified; I69.359 Hemiplegia and hemiparesis following cerebral infarction affecting unspecified side; R07.89 Other chest pain; I10 Essential (primary) hypertension; Z95.1 Presence of aortocoronary bypass graft; F17.200 Nicotine dependence, unspecified, uncomplicated; F32.9 Major depressive disorder, single episode, unspecified; E78.5 Hyperlipidemia, unspecified; N32.89 Other specified disorders of bladder; R31.9 Hematuria, unspecified; N40.0 Benign prostatic hyperplasia without lower urinary tract symptoms
CPT/HCPCS: 36415; 71045; 80053; 80061; 80307; 82550; 82553; 82962; 83690; 83735; 83880; 84100; 84443; 84484; 85025; 85610; 85651; 85730; 86140; 93005; 93306; 94664; 99285